=== PATIENT | male | born 1960 | race Caucasian/White ===

== ENCOUNTER 2017-03-16 14:24 | Emergency (ER) | payer OTHER ==
[2017-03-16 14:34] VITALS: BP 176/93; PULSE 120; RESP 18; TEMP 99
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
== END 2017-03-16 15:44 | disposition other institution (70) ==
LOC: EC 14:24
DX: Z02.89 Encounter for other administrative examinations (principal); F17.200 Nicotine dependence, unspecified, uncomplicated
CPT/HCPCS: 99281

== ENCOUNTER → 2017-05-02 | Outpatient (CLI) | payer MEDICARE, OTHER ==
--- NOTE | 2017-05-02 16:48 | PE ---
Nuclear medicine PET/CT HISTORY: Colorectal cancer, initial Patient received 14.4 mCi F-18 FDG intravenously in delayed scanning was performed from the skull bas e through the mid thighs. Localization and attenuation correction CT scan was also performed. No comparisons available. Neck and chest: There are multiple pulmonary nodules present, nodule in the left upper lobe measures approximately 1 cm and shows associated uptake, an additional left upper lobe lung nodule measures 9 mm adjacent to the fissure and shows some mild hypermetabolic uptake, lower lobe nodules are also pre sent, largest in the medial aspect measuring 15 mm and showing some mild uptake, additional nodule wi th possible pleural extension posterior laterally measures approximately 11 to 12 mm, left lower lobe nodule adjacent to the fissure measures 9 mm. Right lower lobe also shows multiple pulmonary nodules , largest medially measures 13 mm. 12 mm right lower lobe nodule also shows uptake as does the right upper lobe nodule measuring 10 mm. Approximately 14-15 nodules on the right and 6 or 7 on the left. T here is no pleural or pericardial effusion. Abdomen pelvis: Multiple nodules are scattered throughout the liver showing increased attenuation, th ere are likely 15-20 lesions present scattered within the liver. No retroperitoneal adenopathy. There is no ascites. There is abnormal thickening of the rectosigmoid colon with associated hypermetabolic uptake, some abnormal uptake also present in the level of the cecum is indeterminate. Osseous structures within normal limits IMPRESSION: Findings compatible with metastatic disease.
== END | disposition home or self-care (01) ==
LOC: RADPETMAIN 12:17
PROVIDERS: ATTEND Internal Medicine Hematology & Oncology
DX: C18.9 Malignant neoplasm of colon, unspecified (principal)
CPT/HCPCS: 78815; A9552

== ENCOUNTER → 2017-05-19 | Day surgery (SDC) | payer OTHER ==
[~2017-05-19] MED LIST: HYDROcodone/APAP 5-325MG 1 EACH TAB PO PRN
[2017-05-19 09:18] VITALS: TEMP 98.1
[2017-05-19 09:34] LABS: Platelet Count 650 k/uL (150-450)
[2017-05-19 09:35] LABS: INR 1.1 (<1.2); Prothrombin Time 10.6 sec (9.0-12.0)
[2017-05-19] MEDS: HYDROmorphone 0.5 MG/0.5 ML SYRINGE IVP PRN ×2 (10:04→10:22)
[2017-05-19 10:44] VITALS: PULSE 78
[2017-05-19 14:19] VITALS: RESP 20
--- NOTE | 2017-05-19 14:23 | US ---
EXAMINATION TYPE: US biopsy liver DATE OF EXAM: 05/19/2017 HISTORY: Liver masses. FINDINGS: Maximal barrier technique was utilized. The skin overlying a suitable path to the patient' s mass in the right lobe of the liver was localized with ultrasound and the overlying skin prepped an d draped. Ultrasound was utilized with sterile technique. Lidocaine was used for local anesthesia. A skin sanjay was made with a scalpel. An 18-gauge needle was advanced under direct ultrasound sammy alvarez and core specimen obtained of the mass. Specimen submitted in formalin to Pathology. Following t he procedure, hemostasis achieved and the patient is discharged in stable condition without complicat ion. IMPRESSION:STATUS POST ULTRASOUND GUIDED CORE BIOPSY OF liver MASS, PATHOLOGY IS PENDING. THIS PROCE DURE IS PERFORMED BY THE UNDERSIGNED.
[2017-05-19 14:52] VITALS: BP 154/69
== END ==
LOC: RADPROMAIN 08:30
PROVIDERS: ATTEND Internal Medicine Hematology & Oncology
DX: C78.7 Secondary malignant neoplasm of liver and intrahepatic bile duct (principal); C18.9 Malignant neoplasm of colon, unspecified
CPT/HCPCS: 85049; 85610; 88342; 88307; 88341; 96374; 36415; 47000; 76942; J1170

== ENCOUNTER 2017-10-05 12:58 | Emergency (ER) | payer OTHER ==
[2017-10-05 13:19] VITALS: BP 130/84; PULSE 110; RESP 18; TEMP 99.8
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
--- NOTE | 2017-10-08 01:59 | CDI ---
Documentation Clarification OP Dear Kori Bridges, PAC Please provide specific fingers abrasion locations. Thank you, Koki Gorman Film Drying Machine Operator If you have any questions, please contact Observatory Director at [phone] [facility]
== END 2017-10-05 14:35 | disposition home or self-care (01) ==
LOC: EC 12:58
DX: S00.81XA Abrasion of other part of head, initial encounter (principal); S50.01XA Contusion of right elbow, initial encounter; S60.212A Contusion of left wrist, initial encounter; S60.416A Abrasion of right little finger, initial encounter; S60.414A Abrasion of right ring finger, initial encounter; I10 Essential (primary) hypertension; F17.200 Nicotine dependence, unspecified, uncomplicated; Z92.21 Personal history of antineoplastic chemotherapy; Z79.899 Other long term (current) drug therapy; Z85.038 Personal history of other malignant neoplasm of large intestine; V18.4XXA Pedal cycle driver injured in noncollision transport accident in traffic accident, initial encounter; Y93.55 Activity, bike riding
CPT/HCPCS: 99283

== ENCOUNTER 2017-11-13 10:40 | Emergency (ER) | payer OTHER ==
[2017-11-13 10:49] VITALS: TEMP 98.2
[2017-11-13] MEDS ORDERED: MORPHINE SULFATE 2 MG/ML SYRINGE IM STA (11:19)
--- NOTE | 2017-11-13 11:44 | CT ---
EXAMINATION TYPE: CT brain juanito jensen DATE OF EXAM: 11/13/2017 COMPARISON: None HISTORY: Fall, heead injury CT DLP: 1567.[address] of the brain was performed. The ventricles, basal cisterns and sulci overlying the cerebral convexities demonstrate mild enlargem ent. There is no evidence for intracranial hemorrhage or sulcal effacement. There is decreased attenuatio n about the periventricular white matter and deep white matter of both cerebral hemispheres, compatib le with chronic small vessel ischemia. No mass effects are seen. If symptoms persist consider MRI. Osseous calvarium is intact. IMPRESSION: 1. Age related atrophic and chronic small vessel ischemic change without acute intracranial process seen at this time. CT Cervical Spine: Unenhanced CT of the cervical spine was performed with bone and soft tissue window settings submitted . Coronal and sagittal reconstruction is obtained. There is normal alignment and prevertebral soft tissues. No evidence for acute cervical fracture . Scattered degenerative disc disease and spondylosis. Biapical scarring. 5.2 mm pulmonary nodule lef t upper lobe with central calcification likely reflects a granuloma. IMPRESSION: 1. No evidence for acute fracture or subluxation of the cervical spine.
--- NOTE | 2017-11-13 11:46 | CT ---
EXAMINATION TYPE: CT facial bones wo con DATE OF EXAM: 11/13/2017 COMPARISON: None HISTORY: Fall, head injury CT DLP: 361.[address] of the facial bones was performed in the axial and coronal planes. Bone and soft tissu e window settings are submitted. No significant soft tissue swelling is appreciated. I do not see evidence for displaced facial bone fracture or depressed facial bone fracture. The globes are intact. Paranasal sinuses are well-aerated. Mild paranasal sinus mucosal thickening. IMPRESSION: 1. No evidence for depressed or displaced facial bone fracture.
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
[2017-11-13 11:52] VITALS: BP 167/94; PULSE 100; RESP 16
--- NOTE | 2017-11-13 11:52 | XR ---
EXAMINATION TYPE: XR ribs LT w pa chest xray DATE OF EXAM: 11/13/2017 COMPARISON: NONE HISTORY: Pain TECHNIQUE: Single view of the chest 4 views of the ribs are submitted. FINDINGS: The lungs are clear. No Evidence for pneumothorax. No evidence for focal contusion. Medi astinal structures are midline. Evaluation of the ribs fails to demonstrate evidence for displaced r ib fracture or secondary sign of rib fracture. IMPRESSION: Negative study
== END 2017-11-13 12:52 | disposition home or self-care (01) ==
LOC: EC 10:40
DX: S20.212A Contusion of left front wall of thorax, initial encounter (principal); I10 Essential (primary) hypertension; F17.200 Nicotine dependence, unspecified, uncomplicated; Z85.038 Personal history of other malignant neoplasm of large intestine; Z79.82 Long term (current) use of aspirin; Z79.899 Other long term (current) drug therapy; W18.2XXA Fall in (into) shower or empty bathtub, initial encounter; Y93.E9 Activity, other interior property and clothing maintenance; Y92.009 Unspecified place in unspecified non-institutional (private) residence as the place of occurrence of the external cause
CPT/HCPCS: 71101; 72125; 70486; 70450; 99284; 96372; J2270

== ENCOUNTER 2017-11-20 13:32 | Inpatient (IN) | payer OTHER ==
[2017-11-20] MEDS ORDERED: ONDANSETRON 4 MG/2 ML VIAL IVP STA (14:13)
[2017-11-20] MEDS ORDERED: SODIUM CHLORIDE 0.9% 1,000 ML IV STA (14:13)
--- NOTE | 2017-11-20 14:16 | ED ---
General Adult HPI - General Chief complaint: Weakness Stated complaint: weakness, chemo pt Time Seen by Provider: 11/20/17 13:53 Source: patient, RN notes reviewed Mode of arrival: wheelchair Limitations: physical limitation - History of Present Illness Initial comments: Patient is a pleasant 56-year-old male presenting to the emergency Department with complaints of generalized weakness. Onset of symptoms was this morning. Patient did have chemotherapy around 1 week ago. Patient has known colon cancer. Patient does admit to not eating and drinking well. Patient states he feels fatigued and weak all over. Patient did have a fall a couple of days ago and struck his chest and head. Patient denies any significant injury. No loss of consciousness. Patient does not take blood thinners. - Related Data Home Medications Medication Instructions Recorded Confirmed LORazepam [Ativan] 0.5 mg PO BID 05/14/17 11/20/17 HYDROcodone/APAP 5-325MG [[place] 1 tab PO Q6H PRN 10/05/17 11/20/17 5-325] Aspirin EC [Ecotrin Low Dose] 81 mg PO DAILY 11/13/17 11/20/17 Megestrol [Megace] 200 mg PO AC-TID 11/13/17 11/20/17 amLODIPine [Norvasc] 10 mg PO DAILY 11/13/17 11/20/17 Allergies Allergy/AdvReac Type Severity Reaction Status Date / Time No Known Allergies Allergy Verified 11/20/17 14:20 Review of Systems ROS Statement: Those systems with pertinent positive or pertinent negative responses have been documented in the HPI. ROS Other: All systems not noted in ROS Statement are negative. Constitutional: Denies: fever Eyes: Denies: eye pain ENT: Denies: ear pain Respiratory: Denies: cough, dyspnea Cardiovascular: Denies: chest pain Endocrine: Reports: fatigue Gastrointestinal: Reports: nausea. Denies: abdominal pain Genitourinary: Denies: dysuria Musculoskeletal: Denies: back pain Skin: Denies: rash Neurological: Denies: weakness Past Medical History Past Medical History: Cancer, COPD, Hyperlipidemia, Hypertension Additional Past Medical History / Comment(s): Arthritis. colon cancer History of Any Multi-Drug Resistant Organisms: None Reported Past Surgical History: Tonsillectomy Additional Past Surgical History / Comment(s): Colonoscopy 2018 Past Anesthesia/Blood Transfusion Reactions: No Reported Reaction Past Psychological History: No Psychological Hx Reported Smoking Status: Current every day smoker Past Alcohol Use History: Occasional Past Drug Use History: None Reported - Past Family History Sister(s) Family Medical History: Cancer Additional Family Medical History / Comment(s): Sister Breast Ca General Exam Limitations: physical limitation General appearance: alert, in no apparent distress Head exam: Present: other (Ecchymosis left zygomatic region without tenderness) Eye exam: Present: normal appearance, PERRL, EOMI. Absent: nystagmus ENT exam: Present: normal oropharynx Neck exam: Present: normal inspection. Absent: tenderness Respiratory exam: Present: normal lung sounds bilaterally Cardiovascular Exam: Present: tachycardia GI/Abdominal exam: Present: soft. Absent: tenderness Extremities exam: Present: normal inspection, full ROM. Absent: tenderness Neurological exam: Present: alert, CN II-XII intact. Absent: motor sensory deficit Expanded Motor strength exam: RUE: 5, LUE: 5, RLE: 5, LLE: 5 Eye Response: (4) open spontaneously Motor Response: (6) obeys commands Verbal Response: (5) oriented Psychiatric exam: Present: normal affect, normal mood Skin exam: Present: other (Patient also has ecchymosis left chest without bony tenderness.) Course Vital Signs 11/20/17 11/20/17 11/20/17 13:41 15:10 16:00 Temperature 99.2 F Pulse Rate 130 H 103 H 112 H Respiratory 20 16 18 Rate Blood Pressure 139/95 149/88 148/107 O2 Sat by Pulse 98 98 100 Oximetry - Reevaluation(s) Reevaluation #1: 11/20/17 16:33 Patient reevaluated and updated on results. Patient feels somewhat better however overall still feels fatigued and weak. Dr. Sage has been paged for admission. EKG Findings - EKG Comments: EKG Findings:: Sinus tachycardia 111. RI 138. QRS 84. QT 388. QTC 527. Normal axis. Normal QRS. No acute ST change. Medical Decision Making - Lab Data Result diagrams: 11/20/17 14:05 11/20/17 14:05 Lab Results 11/20/17 11/20/17 11/20/17 Range/Units 14:05 14:05 14:05 WBC 6.1 (3.8-10.6) k/uL RBC 4.05 L (4.30-5.90) m/uL Hgb 13.7 (13.0-17.5) gm/dL Hct 40.1 (39.0-53.0) % MCV 99.2 (80.0-100.0) fL MCH 33.8 (25.0-35.0) pg MCHC 34.1 (31.0-37.0) g/dL RDW 17.1 H (11.5-15.5) % Plt Count 119 L D (150-450) k/uL Neutrophils % (Manual) 64 % Band Neutrophils % 3 % Lymphocytes % (Manual) 11 % Monocytes % (Manual) 22 % Neutrophils # (Manual) 4.00 (1.3-7.7) k/uL Lymphocytes # (Manual) 0.67 L (1.0-4.8) k/uL Monocytes # (Manual) 1.34 H (0-1.0) k/uL Nucleated RBCs 0 (0-0) /100 WBC Manual Slide Review Performed Anisocytosis Slight Macrocytosis Slight PT 13.7 H (9.0-12.0) sec INR 1.5 H (<1.2) APTT 30.0 (22.0-30.0) sec Sodium 129 L (137-145) mmol/L Potassium 2.9 L* (3.5-5.1) mmol/L Chloride 94 L (98-107) mmol/L Carbon Dioxide 24 (22-30) mmol/L Anion Gap 11 mmol/L BUN 11 (9-20) mg/dL Creatinine 0.53 L (0.66-1.25) mg/dL Est GFR (CKD-EPI)AfAm >90 (>60 ml/min/1.73 sqM) Est GFR (CKD-EPI)NonAf >90 (>60 ml/min/1.73 sqM) Glucose 106 H (74-99) mg/dL Calcium 8.1 L (8.4-10.2) mg/dL Magnesium 1.2 L (1.6-2.3) mg/dL Total Bilirubin 1.3 (0.2-1.3) mg/dL AST 127 H (17-59) U/L ALT 76 H (21-72) U/L Alkaline Phosphatase 457 H (38-126) U/L Total Protein 6.4 (6.3-8.2) g/dL Albumin 3.4 L (3.5-5.0) g/dL Urine Color Urine Appearance (Clear) Urine pH (5.0-8.0) Ur Specific [place] (1.001-1.035) Urine Protein (Negative) Urine Glucose (UA) (Negative) Urine Ketones (Negative) Urine Blood (Negative) Urine Nitrite (Negative) Urine Bilirubin (Negative) Urine Urobilinogen (<2.0) mg/dL Ur Leukocyte Esterase (Negative) 11/20/17 Range/Units Unknown WBC (3.8-10.6) k/uL RBC (4.30-5.90) m/uL Hgb (13.0-17.5) gm/dL Hct (39.0-53.0) % MCV (80.0-100.0) fL MCH (25.0-35.0) pg MCHC (31.0-37.0) g/dL RDW (11.5-15.5) % Plt Count (150-450) k/uL Neutrophils % (Manual) % Band Neutrophils % % Lymphocytes % (Manual) % Monocytes % (Manual) % Neutrophils # (Manual) (1.3-7.7) k/uL Lymphocytes # (Manual) (1.0-4.8) k/uL Monocytes # (Manual) (0-1.0) k/uL Nucleated RBCs (0-0) /100 WBC Manual Slide Review Anisocytosis Macrocytosis PT (9.0-12.0) sec INR (<1.2) APTT (22.0-30.0) sec Sodium (137-145) mmol/L Potassium (3.5-5.1) mmol/L Chloride (98-107) mmol/L Carbon Dioxide (22-30) mmol/L Anion Gap mmol/L BUN (9-20) mg/dL Creatinine (0.66-1.25) mg/dL Est GFR (CKD-EPI)AfAm (>60 ml/min/1.73 sqM) Est GFR (CKD-EPI)NonAf (>60 ml/min/1.73 sqM) Glucose (74-99) mg/dL Calcium (8.4-10.2) mg/dL Magnesium (1.6-2.3) mg/dL Total Bilirubin (0.2-1.3) mg/dL AST (17-59) U/L ALT (21-72) U/L Alkaline Phosphatase (38-126) U/L Total Protein (6.3-8.2) g/dL Albumin (3.5-5.0) g/dL Urine Color Yellow Urine Appearance Clear (Clear) Urine pH 7.0 (5.0-8.0) Ur Specific [place] 1.011 (1.001-1.035) Urine Protein Trace H (Negative) Urine Glucose (UA) Negative (Negative) Urine Ketones 1+ H (Negative) Urine Blood Negative (Negative) Urine Nitrite Negative (Negative) Urine Bilirubin Negative (Negative) Urine Urobilinogen 12.0 (<2.0) mg/dL Ur Leukocyte Esterase Negative (Negative) - Radiology Data Radiology results: report reviewed (Chest x-ray shows no acute process. Computed tomography scan of the brain shows no acute process. I am unable to view films.) Disposition Clinical Impression: Dehydration, Hyponatremia, Hypokalemia, Hypomagnesemia Disposition: ADMITTED IP TO THIS HOSP Is patient prescribed a controlled substance at d/c from ED?: No Referrals: Gee Cancino MD [Primary Care Provider] - 1-2 days Decision Time: 16:33
--- NOTE | 2017-11-20 14:36 | CT ---
EXAMINATION TYPE: CT brain wo con DATE OF EXAM: 11/20/2017 HISTORY: Weakness and increased dizziness today. CT DLP: 1038.8 mGycm. Automated Exposure Control for Dose Reduction was Utilized. TECHNIQUE: CT scan of the head is performed without contrast. COMPARISON: CT brain from one week earlier. FINDINGS: There is no acute intracranial hemorrhage or midline shift identified. There is diffuse v entricular and sulcal prominence consistent with diffuse age-related cerebral atrophy. Perry-white mat ter differentiation is preserved. The globes are intact and the visualized sinuses are clear. No s uspicious opacification of mastoid air cells is seen. IMPRESSION: No acute intracranial hemorrhage or midline shift. There is mild diffuse age-related ce rebral atrophy redemonstrated. No significant change from prior.
--- NOTE | 2017-11-20 14:48 | XR ---
EXAMINATION TYPE: XR chest 2V DATE OF EXAM: 11/20/2017 COMPARISON: Prior chest 11/13/2017 HISTORY: Trauma and pain 2 days prior, dyspnea TECHNIQUE: Frontal and lateral views of the chest are obtained. FINDINGS: There is no focal air space opacity, pleural effusion, or pneumothorax seen. The cardiac silhouette size is within normal limits. The osseous structures are intact. Port-A-Cath is unchange d. There are overlying cardiac leads. IMPRESSION: Stable exam. No acute cardiopulmonary disease.
[2017-11-20 15:05] LABS: Anisocytosis Slight; HCT 40.1 % (39.0-53.0); HGB 13.7 gm/dL (13.0-17.5); MCH 33.8 pg (25.0-35.0); MCHC 34.1 g/dL (31.0-37.0); MCV 99.2 fL (80.0-100.0); Macrocytosis Slight; Mean Platelet Volume 7.4; Platelet Count 119 k/uL (150-450); RBC 4.05 m/uL (4.30-5.90); RDW 17.1 % (11.5-15.5); WBC 6.1 k/uL (3.8-10.6)
[2017-11-20 15:06] LABS: ALT 76 U/L (21-72); AST 127 U/L (17-59); Albumin 3.4 g/dL (3.5-5.0); Alkaline Phosphatase 457 U/L (38-126); Anion Gap 11 mmol/L; Blood Urea Nitrogen 11 mg/dL (9-20); Calcium 8.1 mg/dL (8.4-10.2); Carbon Dioxide 24 mmol/L (22-30); Chloride 94 mmol/L (98-107); Glucose 106 mg/dL (74-99); Magnesium 1.2 mg/dL (1.6-2.3); Sodium 129 mmol/L (137-145); Total Bilirubin 1.3 mg/dL (0.2-1.3); Total Protein 6.4 g/dL (6.3-8.2)
[2017-11-20 15:10] LABS: Potassium 2.9 mmol/L (3.5-5.1)
[2017-11-20] MEDS ORDERED: POTASSIUM CHLORIDE ER 20 MEQ TAB.ER PO STA (15:10)
[2017-11-20] MEDS ORDERED: POTASSIUM CHLORIDE 2 MEQ/ML 20 ML VIAL IV STA (15:10)
[2017-11-20] MEDS ORDERED: POTASSIUM CHLORIDE 10 MEQ in WATER FOR INJECTION 1 100ML.BAG IVPB STA (15:12)
[2017-11-20 15:14] LABS: INR 1.5 (<1.2); Prothrombin Time 13.7 sec (9.0-12.0)
[2017-11-20] MEDS ORDERED: MAGNESIUM OXIDE 400 MG TAB PO STA (15:38)
[2017-11-20 16:01] LABS: Band Neutrophils % 3 %; Lymphocytes # (M) 0.67 k/uL (1.0-4.8); Monocytes # (M) 1.34 k/uL (0-1.0); Neutrophils % (M) 64 %; Nucleated Red Blood Cells 0 /100 WBC (0-0); Total Cells Counted 100
[2017-11-20 16:25] LABS: Appearance,Urine Clear (Clear); Bilirubin,Urine Negative (Negative); Blood,Urine Negative (Negative); Color,Urine Yellow; Glucose,Urine (UA) Negative (Negative); Ketones,Urine 1+ (Negative); Leukocyte Esterase,Urine Negative (Negative); Nitrite,Urine Negative (Negative); Protein,Urine Trace (Negative); Specific Gravity,Urine 1.011 (1.001-1.035)
[2017-11-20] MEDS ORDERED: ONDANSETRON 4 MG/2 ML VIAL IVP PRN (16:34)
[2017-11-20] MEDS ORDERED: NALOXONE 0.4 MG/ML 1 ML VIAL IV PRN (16:34)
[2017-11-20] MEDS ORDERED: 0.9% NACL WITH KCL 20 MEQ/L 1,000 ML IV SCH (16:45)
[2017-11-20] MEDS: PANTOPRAZOLE 40 MG/10 ML VIAL IV SCH (18:21)
[2017-11-20] MEDS: MAGNESIUM SULFATE-D5W PMX 1 GM in DEXTROSE/WATER 1 100ML.BAG IVPB SCH ×2 (18:21→20:30)
--- NOTE | 2017-11-20 18:34 | P.CONS ---
History of Present Illness - Reason for Consult Consult date: 11/20/17 - History of Present Illness the patient is a 56-year-old white female, who had presented to [facility] in with bright red blood per rectum X few weeks, associated with mild lower abdominal pain , described as "gas". He was seen by surgery > had Colonoscopy with a mass at 7 cm from anal verge, biopsy was C/W Adenocarcinoma. CT Scan of abdomen/Pelvis revealed multiple hypodense lesions in liver C/W metastatic disease. CT Scan of Lung revealed multiple pulmonary nodule C/W mets to lung. he had a PET Scan as an outpatient on 05/02/17 showing Diffuse Lung+Liver mets. Bx of liver in 05/21 revealed Metastatic Adenocarcinoma C/W Colorectal primary. he was started on treatment with FOLFOX and Avastin. He is status post 11 cycles with the last one administered on 11/10/17 with pump removed on 11/12/17. he has been having slowly progressive toxicity, with decreased appetite and oral intake requiringhydration and electrolyte supplementation, previously in the office. The patient came into the emergency room, as his oral intake had been very poor since his last chemotherapy. He had been feeling weak, and somewhat dizzy on exertion. In the ER he was found to be dehydrated on exam, with multiple electrolyte abnormalities. He was therefore admitted for further management. Review of Systems Constitutional: Reports fatigue, Reports poor appetite, Reports weakness, Reports weight loss Eyes: denies blurred vision, denies pain Ears, nose, mouth and throat: Denies headache, Denies sore throat Cardiovascular: Reports decreased exercise tolerance Respiratory: Denies cough Gastrointestinal: Denies abdominal pain, Denies diarrhea, Denies nausea, Denies vomiting Genitourinary: Reports as per HPI Musculoskeletal: Reports muscle weakness Integumentary: Denies pruritus, Denies rash Neurological: Reports weakness Psychiatric: Denies anxiety, Denies depression Endocrine: Reports fatigue, Reports weight change Hematologic/Lymphatic: Reports as per HPI Past Medical History Past Medical History: Cancer, COPD, Hyperlipidemia, Hypertension Additional Past Medical History / Comment(s): Arthritis. colon cancer History of Any Multi-Drug Resistant Organisms: None Reported Past Surgical History: Tonsillectomy Additional Past Surgical History / Comment(s): Colonoscopy 2018 Past Anesthesia/Blood Transfusion Reactions: No Reported Reaction Past Psychological History: No Psychological Hx Reported Smoking Status: Current every day smoker Past Alcohol Use History: Occasional Past Drug Use History: None Reported - Past Family History Sister(s) Family Medical History: Cancer Additional Family Medical History / Comment(s): Sister Breast Ca Medications and Allergies Home Medications Medication Instructions Recorded Confirmed Type LORazepam [Ativan] 0.5 mg PO BID 05/14/17 11/20/17 History HYDROcodone/APAP 5-325MG [[place] 1 tab PO Q6H PRN 10/05/17 11/20/17 History 5-325] Aspirin EC [Ecotrin Low Dose] 81 mg PO DAILY 11/13/17 11/20/17 History Megestrol [Megace] 200 mg PO AC-TID 11/13/17 11/20/17 History amLODIPine [Norvasc] 10 mg PO DAILY 11/13/17 11/20/17 History Allergies Allergy/AdvReac Type Severity Reaction Status Date / Time No Known Allergies Allergy Verified 11/20/17 14:20 Physical Exam Vitals: Vital Signs Temp Pulse Resp BP Pulse Ox 11/20/17 18:13 99.2 F 100 16 148/107 98 11/20/17 16:00 112 H 18 148/107 100 11/20/17 15:10 103 H 16 149/88 98 11/20/17 13:41 99.2 F 130 H 20 139/95 98 Intake and Output 11/20/17 11/20/17 11/20/17 06:59 14:59 22:59 Other: Weight 58.967 kg - Constitutional General appearance: no acute distress - EENT Poor dentition. Oral mucosa dry Eyes: EOMI, PERRLA ENT: hearing grossly normal - Neck Neck: no lymphadenopathy Thyroid: bilateral: normal size - Respiratory Respiratory: bilateral: CTA - Cardiovascular Rhythm: regular Heart sounds: normal: S1, S2 - Gastrointestinal General gastrointestinal: normal bowel sounds, soft - Integumentary Integumentary: normal - Neurologic Neurologic: CNII-XII intact - Musculoskeletal Musculoskeletal: generalized weakness, strength equal bilaterally - Psychiatric Psychiatric: A&O x's 3, appropriate affect Results CBC & Chem 7: 11/20/17 14:05 11/20/17 14:05 Labs: Abnormal Lab Results - Last 24 Hours (Table) 11/20/17 11/20/17 11/20/17 Range/Units 14:05 14:05 14:05 RBC 4.05 L (4.30-5.90) m/uL RDW 17.1 H (11.5-15.5) % Plt Count 119 L D (150-450) k/uL Lymphocytes # (Manual) 0.67 L (1.0-4.8) k/uL Monocytes # (Manual) 1.34 H (0-1.0) k/uL PT 13.7 H (9.0-12.0) sec INR 1.5 H (<1.2) Sodium 129 L (137-145) mmol/L Potassium 2.9 L* (3.5-5.1) mmol/L Chloride 94 L (98-107) mmol/L Creatinine 0.53 L (0.66-1.25) mg/dL Glucose 106 H (74-99) mg/dL Calcium 8.1 L (8.4-10.2) mg/dL Magnesium 1.2 L (1.6-2.3) mg/dL AST 127 H (17-59) U/L ALT 76 H (21-72) U/L Alkaline Phosphatase 457 H (38-126) U/L Albumin 3.4 L (3.5-5.0) g/dL Urine Protein (Negative) Urine Ketones (Negative) 11/20/17 Range/Units Unknown RBC (4.30-5.90) m/uL RDW (11.5-15.5) % Plt Count (150-450) k/uL Lymphocytes # (Manual) (1.0-4.8) k/uL Monocytes # (Manual) (0-1.0) k/uL PT (9.0-12.0) sec INR (<1.2) Sodium (137-145) mmol/L Potassium (3.5-5.1) mmol/L Chloride (98-107) mmol/L Creatinine (0.66-1.25) mg/dL Glucose (74-99) mg/dL Calcium (8.4-10.2) mg/dL Magnesium (1.6-2.3) mg/dL AST (17-59) U/L ALT (21-72) U/L Alkaline Phosphatase (38-126) U/L Albumin (3.5-5.0) g/dL Urine Protein Trace H (Negative) Urine Ketones 1+ H (Negative) Chest x-ray: report reviewed CT Scan - head: report reviewed Assessment and Plan (1) Dehydration Narrative/Plan: his appears to be mainly due to decreased oral intake,related to his chemotherapy. The patient denies any nausea, vomiting, or significant diarrhea. He did require hydration in the office after cycle 10. - Case discussed with the emergency room physician. The patient will have IV hydration. His appetite does tend to recover in the second week. Current Visit: Yes Status: Acute Code(s): E86.0 - DEHYDRATION SNOMED Code( s): 47931023 (2) Hypokalemia Narrative/Plan: due to decreased oral intake, as well as chemotherapy effect (oxaliplatin). Patient will be supplemented. He is not on regular oral supplementation and will likely benefit from the same on discharge Current Visit: Yes Status: Acute Code(s): E87.6 - HYPOKALEMIA SNOMED Code( s): 31868711 (3) Hypomagnesemia Narrative/Plan: as above Current Visit: Yes Status: Acute Code(s): E83.42 - HYPOMAGNESEMIA SNOMED Code(s): 906266838 (4) Metastatic colon cancer to liver Narrative/Plan: the patient has metastatic colon cancer, with liver and lung involvement. CT scans in 09/18 had shown a good response. He has been having somewhat cumulative toxicity. He is supposed to complete his current regimen, with one more cycle. The patient has follow-up scheduled with Dr. Cancino, prior to that cycle. It will be decided at that time, ifhe needs dose reduction or if the last cycle can be omitted. He is to have restaging CT scans after cycle 12. Labs during this admission have shown some elevation of liver enzymes compared to his baseline (or example alkaline phosphatase in the 450 range versus 250s) this could be transient due to chemotherapy effect. As noted, he has repeat CT scans coming up for restaging. Follow with hydration Current Visit: Yes Status: Acute Code(s): C18.9 - MALIGNANT NEOPLASM OF COLON, UNSPECIFIED; C78.7 - SECONDARY MALIG NEOPLASM OF LIVER AND INTRAHEPATIC BILE DUCT SNOMED Code(s): 81262804 Plan: refer to the admitting service for management of other medical problems. Case discussed in detail with the emergency room physician
[2017-11-20] MEDS: 0.9% NACL WITH KCL 40 MEQ/L 1,000 ML IV SCH (19:12)
[2017-11-20] MEDS ORDERED: POTASSIUM CHLORIDE ER 20 MEQ TAB.ER PO SCH (21:00)
[2017-11-20] MEDS: amLODIPine 10 MG TAB PO SCH (21:56)
[2017-11-21] MEDS: 0.9% NACL WITH KCL 40 MEQ/L 1,000 ML IV SCH ×3 (06:31→22:24)
[2017-11-21 08:36] LABS: Anisocytosis Slight; HCT 38.6 % (39.0-53.0); MCH 34.2 pg (25.0-35.0); MCHC 33.8 g/dL (31.0-37.0); MCV 101.3 fL (80.0-100.0); Macrocytosis Slight; Mean Platelet Volume 7.8; Platelet Count 82 k/uL (150-450); RBC 3.81 m/uL (4.30-5.90); RDW 17.1 % (11.5-15.5); WBC 5.1 k/uL (3.8-10.6)
[2017-11-21 08:40] LABS: ALT 93 U/L (21-72); AST 232 U/L (17-59); Alkaline Phosphatase 449 U/L (38-126); Anion Gap 10 mmol/L; Blood Urea Nitrogen 5 mg/dL (9-20); Carbon Dioxide 19 mmol/L (22-30); Chloride 102 mmol/L (98-107); Glucose 75 mg/dL (74-99); Magnesium 1.8 mg/dL (1.6-2.3); Phosphorus 1.6 mg/dL (2.5-4.5); Potassium 4.3 mmol/L (3.5-5.1); Sodium 131 mmol/L (137-145); Total Bilirubin 1.6 mg/dL (0.2-1.3); Total Protein 6.1 g/dL (6.3-8.2)
[2017-11-21 09:16] LABS: Band Neutrophils % 1 %; Eosinophils # (M) 0.36 k/uL (0-0.7); Lymphocytes # (M) 0.92 k/uL (1.0-4.8); Monocytes # (M) 0.41 k/uL (0-1.0); Neutrophils % (M) 66 %; Nucleated Red Blood Cells 0 /100 WBC (0-0); Polychromasia Present; Total Cells Counted 100
[2017-11-21] MEDS: MEGESTROL 400 MG/10 ML CUP PO SCH ×3 (09:16→17:54)
[2017-11-21] MEDS: amLODIPine 10 MG TAB PO SCH (09:16)
[2017-11-21] MEDS: HEPARIN SODIUM,PORCINE 5,000 UNIT/ML 1 ML VIAL SQ SCH ×2 (09:17→22:24)
[2017-11-21] MEDS: ASPIRIN 81 MG PO SCH (09:17)
[2017-11-21] MEDS: FAMOTIDINE 20 MG TAB PO SCH ×2 (09:17→22:24)
[2017-11-21] MEDS: PANTOPRAZOLE 40 MG/10 ML VIAL IV SCH (09:18)
[2017-11-21] MEDS: LORazepam 0.5 MG TAB PO SCH ×2 (09:26→22:24)
[2017-11-21] MEDS: MAGNESIUM OXIDE 400 MG TAB PO SCH (10:45)
--- NOTE | 2017-11-21 13:46 | P.HPIM ---
History of Present Illness H&P Date: 11/21/17 Chief Complaint: Weakness lethargy and poor oral intake since last chemo 56-year-old male presenting to the emergency Department with complaints of generalized weakness. Onset of symptoms was this morning. Patient did have chemotherapy around 1 week ago. Patient has known colon cancer. Patient does admit to not eating and drinking well. Patient states he feels fatigued and weak all over. Patient did have a fall a couple of days ago and struck his chest and head. Patient denies any significant injury. No loss of consciousness. Patient presented to [facility] in 04/19 with bright red blood per rectum X few weeks , associated with mild lower abdominal pain , described as "gas". He was seen by surgery > had Colonoscopy with a mass at 7 cm from anal verge, biopsy was C/ W Adenocarcinoma. CT Scan of abdomen/Pelvis revealed multiple hypodense lesions in liver C/W metastatic disease. CT Scan of Lung revealed multiple pulmonary nodule C/W mets to lung. he had a PET Scan as an outpatient on 05/02/17 showing Diffuse Lung+Liver mets. Bx of liver in 05/21 revealed Metastatic Adenocarcinoma C/W Colorectal primary. he was started on treatment with FOLFOX and Avastin. He is status post 11 cycles with the last one administered on 11/10/17 with pump removed on 11/12/17. he has been having slowly progressive toxicity, with decreased appetite and oral intake requiringhydration and electrolyte supplementation, previously in the office. Review of Systems Review of Systems Constitutional: Reports fatigue, Reports poor appetite, Reports weakness, Reports weight loss Eyes: denies blurred vision, denies pain Ears, nose, mouth and throat: Denies headache, Denies sore throat Cardiovascular: Reports decreased exercise tolerance Respiratory: Denies cough Gastrointestinal: Denies abdominal pain, Denies diarrhea, Denies nausea, Denies vomiting Genitourinary: Reports as per HPI Musculoskeletal: Reports muscle weakness Integumentary: Denies pruritus, Denies rash Neurological: Reports weakness Psychiatric: Denies anxiety, Denies depression Endocrine: Reports fatigue, Reports weight change Hematologic/Lymphatic: Reports as per HPI Past Medical History Past Medical History: Cancer, COPD, Hyperlipidemia, Hypertension Additional Past Medical History / Comment(s): Arthritis. colon cancer History of Any Multi-Drug Resistant Organisms: None Reported Past Surgical History: Tonsillectomy Additional Past Surgical History / Comment(s): Colonoscopy 2018 Past Anesthesia/Blood Transfusion Reactions: No Reported Reaction Past Psychological History: No Psychological Hx Reported Smoking Status: Current some day smoker Past Alcohol Use History: Occasional Past Drug Use History: None Reported - Past Family History Sister(s) Family Medical History: Cancer Additional Family Medical History / Comment(s): Sister Breast Ca Medications and Allergies Home Medications Medication Instructions Recorded Confirmed Type LORazepam [Ativan] 0.5 mg PO BID 05/14/17 11/20/17 History HYDROcodone/APAP 5-325MG [[place] 1 tab PO Q6H PRN 10/05/17 11/20/17 History 5-325] Aspirin EC [Ecotrin Low Dose] 81 mg PO DAILY 11/13/17 11/20/17 History Megestrol [Megace] 200 mg PO AC-TID 11/13/17 11/20/17 History amLODIPine [Norvasc] 10 mg PO DAILY 11/13/17 11/20/17 History Allergies Allergy/AdvReac Type Severity Reaction Status Date / Time No Known Allergies Allergy Verified 11/20/17 14:20 Physical Exam Vitals: Vital Signs Temp Pulse Pulse Resp BP BP Pulse Ox 11/21/17 07:00 98.6 F 93 16 137/85 96 11/20/17 23:00 98.5 F 101 H 16 149/83 97 11/20/17 19:45 98.4 F 106 H 16 146/87 97 11/20/17 18:50 96 18 150/87 97 11/20/17 18:13 99.2 F 100 16 148/107 98 11/20/17 16:00 112 H 18 148/107 100 11/20/17 15:10 103 H 16 149/88 98 11/20/17 13:41 99.2 F 130 H 20 139/95 98 Intake and Output 11/20/17 11/21/17 11/21/17 22:59 06:59 14:59 Intake Total 800 Balance 800 Intake: Intake, IV Titration 800 Amount 0.9% NaCl with KCl 40 Meq 800 /l 1,000 ml @ 100 mls/hr IV .Q10H BECKY Rx#: [id number] Other: # Voids 1 - Constitutional General appearance: no acute distress - EENT Poor dentition. Oral mucosa dry Eyes: EOMI, PERRLA ENT: hearing grossly normal - Neck Neck: no lymphadenopathy Thyroid: bilateral: normal size - Respiratory Respiratory: bilateral: CTA - Cardiovascular Rhythm: regular Heart sounds: normal: S1, S2 - Gastrointestinal General gastrointestinal: normal bowel sounds, soft - Integumentary Integumentary: normal - Neurologic Neurologic: CNII-XII intact - Musculoskeletal Musculoskeletal: generalized weakness, strength equal bilaterally - Psychiatric Psychiatric: A&O x's 3, appropriate affect Results CBC & Chem 7: 11/21/17 07:57 11/21/17 07:57 Labs: Abnormal Lab Results - Last 24 Hours (Table) 11/20/17 11/20/17 11/20/17 Range/Units 14:05 14:05 14:05 RBC 4.05 L (4.30-5.90) m/uL Hct (39.0-53.0) % MCV (80.0-100.0) fL RDW 17.1 H (11.5-15.5) % Plt Count 119 L D (150-450) k/uL Lymphocytes # (Manual) 0.67 L (1.0-4.8) k/uL Monocytes # (Manual) 1.34 H (0-1.0) k/uL PT 13.7 H (9.0-12.0) sec INR 1.5 H (<1.2) Sodium 129 L (137-145) mmol/L Potassium 2.9 L* (3.5-5.1) mmol/L Chloride 94 L (98-107) mmol/L Carbon Dioxide (22-30) mmol/L BUN (9-20) mg/dL Creatinine 0.53 L (0.66-1.25) mg/dL Glucose 106 H (74-99) mg/dL Calcium 8.1 L (8.4-10.2) mg/dL Phosphorus (2.5-4.5) mg/dL Magnesium 1.2 L (1.6-2.3) mg/dL Total Bilirubin (0.2-1.3) mg/dL AST 127 H (17-59) U/L ALT 76 H (21-72) U/L Alkaline Phosphatase 457 H (38-126) U/L Total Protein (6.3-8.2) g/dL Albumin 3.4 L (3.5-5.0) g/dL Urine Protein (Negative) Urine Ketones (Negative) 11/20/17 11/21/17 11/21/17 Range/Units Unknown 07:57 07:57 RBC 3.81 L (4.30-5.90) m/uL Hct 38.6 L (39.0-53.0) % MCV 101.3 H (80.0-100.0) fL RDW 17.1 H (11.5-15.5) % Plt Count 82 L (150-450) k/uL Lymphocytes # (Manual) 0.92 L (1.0-4.8) k/uL Monocytes # (Manual) (0-1.0) k/uL PT (9.0-12.0) sec INR (<1.2) Sodium 131 L (137-145) mmol/L Potassium (3.5-5.1) mmol/L Chloride (98-107) mmol/L Carbon Dioxide 19 L (22-30) mmol/L BUN 5 L (9-20) mg/dL Creatinine 0.42 L (0.66-1.25) mg/dL Glucose (74-99) mg/dL Calcium 8.0 L (8.4-10.2) mg/dL Phosphorus 1.6 L (2.5-4.5) mg/dL Magnesium (1.6-2.3) mg/dL Total Bilirubin 1.6 H (0.2-1.3) mg/dL AST 232 H (17-59) U/L ALT 93 H (21-72) U/L Alkaline Phosphatase 449 H (38-126) U/L Total Protein 6.1 L (6.3-8.2) g/dL Albumin 3.0 L (3.5-5.0) g/dL Urine Protein Trace H (Negative) Urine Ketones 1+ H (Negative) Thrombosis Risk Factor Assmnt - Choose All That Apply Any of the Below Risk Factors Present?: Yes Each Factor Represents 1 point: Age 41-60 years, Medical pt on bed rest Thrombosis Risk Factor Assessment Total Risk Factor Score: 2 Thrombosis Risk Factor Assessment Level: Low Risk Assessment and Plan Assessment: 1. Electrolyte imbalance; hyponatremia/hypokalemia/hypomagnesemia - We will make electrolyte supplementation and continue to monitor electrolytes closely - Patient might need oral maintenance electrolyte supplement if levels continue to drop 2. Dehydration; we will continue with IV fluid hydration - We will monitor strict NABILA's, daily weights, renal function and electrolytes 3. Transaminitis; metastatic liver involvement with colon cancer 4. Hypertension; patient remains on amlodipine 10 mg by mouth daily - We will monitor blood pressure closely and make adjustments if blood pressure fluctuates 5. Metastatic colon cancer; with liver and lung involvement - Patient is currently on chemotherapy with 1 cycle remaining; plan is to decrease dose or pulmonary last cycle - Per oncology patient will need restaging computed tomography scan after cycle 12 of chemo 6. Anorexia/protein calorie malnutrition - Patient is started on megestrol 200 mg by mouth 3 times a day - Patient is encouraged to have frequent smaller meals - Dietary supplement is recommended 7. DVT/GI prophylaxis; heparin/Pepcid CODE STATUS; full code Time with Patient: Greater than 30
[2017-11-22] MEDS: MEGESTROL 400 MG/10 ML CUP PO SCH ×3 (08:35→17:20)
[2017-11-22] MEDS: FAMOTIDINE 20 MG TAB PO SCH ×2 (08:36→21:20)
[2017-11-22] MEDS: MAGNESIUM OXIDE 400 MG TAB PO SCH (08:36)
[2017-11-22] MEDS: PANTOPRAZOLE 40 MG/10 ML VIAL IV SCH (08:36)
[2017-11-22] MEDS: ASPIRIN 81 MG PO SCH (08:36)
[2017-11-22] MEDS: amLODIPine 10 MG TAB PO SCH (08:36)
[2017-11-22] MEDS: HEPARIN SODIUM,PORCINE 5,000 UNIT/ML 1 ML VIAL SQ SCH ×2 (08:36→21:20)
[2017-11-22] MEDS: LORazepam 0.5 MG TAB PO SCH ×2 (08:46→21:20)
[2017-11-22 09:33] LABS: Anion Gap 9 mmol/L; Blood Urea Nitrogen 3 mg/dL (9-20); Calcium 8.6 mg/dL (8.4-10.2); Carbon Dioxide 18 mmol/L (22-30); Chloride 103 mmol/L (98-107); Glucose 113 mg/dL (74-99); Potassium 4.2 mmol/L (3.5-5.1); Sodium 130 mmol/L (137-145)
--- NOTE | 2017-11-22 12:27 | P.PN ---
Subjective 56-year-old admitted secondary to hyponatremia intravascular volume depletion contributing to generalized weakness. Patient has history of metastatic colon cancer receiving chemotherapy. His generalized weakness is mostly related to cancer and chemotherapy itself rather than intravascular depletion. Patient's sodium did improve to 130 continue with IV fluids. Constitutional: Mechelle is weakness and fatigue Cardio vascular: denied any chest pain, palpitations Gastrointestinal denied any nausea vomiting Pulmonary: Denied any shortness of breath cough Neurologic denied any new focal deficits Objective - Vital Signs Vital signs: Vital Signs Temp 98.0 F 11/22/17 07:00 Pulse 89 11/22/17 07:00 Resp 18 11/22/17 07:00 BP 144/81 11/22/17 07:00 Pulse Ox 96 11/22/17 07:00 Intake & Output 11/21/17 11/22/17 11/22/17 18:59 06:59 18:59 Other: # Voids 3 2 - Exam PHYSICAL EXAMINATION: GENERAL: The patient is alert and oriented x3, not in any acute distress. Well developed, well nourished. HEENT: Pupils are round and equally reacting to light. EOMI. No scleral icterus. No conjunctival pallor. Normocephalic, atraumatic. No pharyngeal erythema. No thyromegaly. CARDIOVASCULAR: S1 and S2 present. No murmurs, rubs, or gallops. PULMONARY: Chest is clear to auscultation, no wheezing or crackles. ABDOMEN: Soft, nontender, nondistended, normoactive bowel sounds. No palpable organomegaly. MUSCULOSKELETAL: No joint swelling or deformity. EXTREMITIES: No cyanosis, clubbing, or pedal edema. NEUROLOGICAL: Gross neurological examination did not reveal any focal deficits. SKIN: No rashes. - Labs CBC & Chem 7: 11/21/17 07:57 11/22/17 08:38 Labs: Abnormal Lab Results - Last 24 Hours (Table) 11/22/17 Range/Units 08:38 Sodium 130 L (137-145) mmol/L Carbon Dioxide 18 L (22-30) mmol/L BUN 3 L (9-20) mg/dL Creatinine 0.40 L (0.66-1.25) mg/dL Glucose 113 H (74-99) mg/dL Assessment and Plan Plan: Assessment and Plan Assessment: 1. Electrolyte imbalance; hyponatremia/hypokalemia/hypomagnesemia - We will make electrolyte supplementation and continue to monitor electrolytes closely - Patient might need oral maintenance electrolyte supplement if levels continue to drop 2. Dehydration; we will continue with IV fluid hydration - We will monitor strict NABILA's, daily weights, renal function and electrolytes 3. Transaminitis; metastatic liver involvement with colon cancer 4. Hypertension; patient remains on amlodipine 10 mg by mouth daily - We will monitor blood pressure closely and make adjustments if blood pressure fluctuates 5. Metastatic colon cancer; with liver and lung involvement - Patient is currently on chemotherapy with 1 cycle remaining; plan is to decrease dose or pulmonary last cycle - Per oncology patient will need restaging computed tomography scan after cycle 12 of chemo 6. Anorexia/protein calorie malnutrition - Patient is started on megestrol 200 mg by mouth 3 times a day - Patient is encouraged to have frequent smaller meals - Dietary supplement is recommended 7. DVT/GI prophylaxis; heparin/Pepcid CODE STATUS; full code
[2017-11-22] MEDS: 0.9% NACL WITH KCL 40 MEQ/L 1,000 ML IV SCH ×2 (14:13→21:09)
[2017-11-23 06:30] VITALS: BP 132/85; PULSE 104; RESP 14; TEMP 99.6
[2017-11-23] MEDS: 0.9% NACL WITH KCL 40 MEQ/L 1,000 ML IV SCH (07:29)
[2017-11-23] MEDS: MEGESTROL 400 MG/10 ML CUP PO SCH ×2 (07:30→12:19)
[2017-11-23] MEDS: HEPARIN SODIUM,PORCINE 5,000 UNIT/ML 1 ML VIAL SQ SCH (07:31)
[2017-11-23] MEDS: PANTOPRAZOLE 40 MG/10 ML VIAL IV SCH (07:31)
[2017-11-23] MEDS: ASPIRIN 81 MG PO SCH (07:31)
[2017-11-23] MEDS: MAGNESIUM OXIDE 400 MG TAB PO SCH (07:32)
[2017-11-23] MEDS: amLODIPine 10 MG TAB PO SCH (07:32)
[2017-11-23] MEDS: FAMOTIDINE 20 MG TAB PO SCH (07:32)
[2017-11-23] MEDS: HYDROcodone/APAP 5-325MG 1 EACH TAB PO PRN ×2 (07:44→13:27)
[2017-11-23] MEDS: LORazepam 0.5 MG TAB PO SCH ×2 (07:44→14:35)
[2017-11-23 08:14] LABS: Anion Gap 9 mmol/L; Blood Urea Nitrogen 4 mg/dL (9-20); Carbon Dioxide 17 mmol/L (22-30); Chloride 104 mmol/L (98-107); Glucose 90 mg/dL (74-99); Potassium 4.7 mmol/L (3.5-5.1); Sodium 130 mmol/L (137-145)
[2017-11-23 09:27] LABS: ALT 127 U/L (21-72); AST 248 U/L (17-59); Albumin 3.1 g/dL (3.5-5.0); Alkaline Phosphatase 518 U/L (38-126); Anion Gap 8 mmol/L; Blood Urea Nitrogen 5 mg/dL (9-20); Carbon Dioxide 17 mmol/L (22-30); Chloride 104 mmol/L (98-107); Glucose 90 mg/dL (74-99); Magnesium 1.6 mg/dL (1.6-2.3); Potassium 4.7 mmol/L (3.5-5.1); Sodium 129 mmol/L (137-145); Total Bilirubin 0.8 mg/dL (0.2-1.3); Total Protein 6.5 g/dL (6.3-8.2)
[2017-11-23 11:44] VITALS: BMI 20.9
--- NOTE | 2017-11-23 14:30 | P.DS ---
Providers Date of admission: 11/20/17 16:34 Attending physician: Rohit Rose MD Consults: 11/20/17 16:44 Consult Physician Urgent Consulting Provider: Guillermo Sage Consult Reason/Comments: Oncological care Do you want consulting provider notified?: Already Contacted Primary care physician: [facility] Course: 56-year-old admitted secondary to hyponatremia intravascular volume depletion contributing to generalized weakness. Patient has history of metastatic colon cancer receiving chemotherapy. His generalized weakness is mostly related to cancer and chemotherapy itself rather than intravascular depletion. Patient's sodium did improve to 130 continue with IV fluids. 11/23/2017 Patient remains hyponatremic and do not believe patient is hypervolemic hyponatremia may have SIADH from his cancer. Patient still comparing of weakness although improved a little bit. His weakness is mostly secondary to cancer cachexia on chemotherapy itself rather than hyponatremia. Physical therapy and occupational therapy evaluated the patient they are not recommending any subacute rehabilitation. Patient declined home care. Patient will be discharged with close follow-up with oncology as an outpatient. PHYSICAL EXAMINATION: GENERAL: The patient is alert and oriented x3, not in any acute distress. Well developed, well nourished. HEENT: Pupils are round and equally reacting to light. EOMI. No scleral icterus. No conjunctival pallor. Normocephalic, atraumatic. No pharyngeal erythema. No thyromegaly. CARDIOVASCULAR: S1 and S2 present. No murmurs, rubs, or gallops. PULMONARY: Chest is clear to auscultation, no wheezing or crackles. ABDOMEN: Soft, nontender, nondistended, normoactive bowel sounds. No palpable organomegaly. MUSCULOSKELETAL: No joint swelling or deformity. EXTREMITIES: No cyanosis, clubbing, or pedal edema. NEUROLOGICAL: Gross neurological examination did not reveal any focal deficits. SKIN: No rashes. -Hyponatremia probably secondary to SIADH, if it worsens patient will need fluid restriction as of now dehydration is a concern because of which I'm not restricting his by mouth intake at home -Dehydration -Mild transaminitis secondary to metastatic colon cancer -Hypertension -Cancer cachexia and protein calorie malnutrition Plan - Discharge Summary New Discharge Prescriptions: No Action LORazepam [Ativan] 0.5 mg PO BID HYDROcodone/APAP 5-325MG [[place] 5-325] 1 tab PO Q6H PRN PRN Reason: Pain amLODIPine [Norvasc] 10 mg PO DAILY Aspirin EC [Ecotrin Low Dose] 81 mg PO DAILY Megestrol [Megace] 200 mg PO AC-TID Discharge Medication List LORazepam [Ativan] 0.5 mg PO BID 05/14/17 [History] HYDROcodone/APAP 5-325MG [[place] 5-325] 1 tab PO Q6H PRN 10/05/17 [History] Aspirin EC [Ecotrin Low Dose] 81 mg PO DAILY 11/13/17 [History] Megestrol [Megace] 200 mg PO AC-TID 11/13/17 [History] amLODIPine [Norvasc] 10 mg PO DAILY 11/13/17 [History] Follow up Appointment(s)/Referral(s): Gee Cancino MD [Primary Care Provider] - 1-2 days
--- NOTE | 2017-11-23 16:11 | P.PN ---
Subjective Progress Note Date: 11/23/17 Principal diagnosis: weakness, dehydration, on chemo Pt seen in follow up, he is taking megace as prescribed and that is helping his appetite, has mild oral irritation, no nausea, vomiting, he is having diarrhea when he urinates, no swelling or pain, feels weak and SOB with exertion, can ambulate slowly. Objective - Vital Signs Vital signs: Vital Signs Temp 99.6 F 11/23/17 06:29 Pulse 104 H 11/23/17 06:29 Resp 14 11/23/17 06:29 BP 132/85 11/23/17 06:29 Pulse Ox 97 11/23/17 06:29 Intake & Output 11/22/17 11/23/17 11/23/17 18:59 06:59 18:59 Intake Total 1600 1240 Balance 1600 1240 Weight 58.967 kg Intake: Intake, IV Titration 1600 400 Amount 0.9% NaCl with KCl 40 Meq 1600 400 /l 1,000 ml @ 100 mls/hr IV .Q10H BECKY Rx#: [id number] Oral 840 Other: Voiding Method Toilet # Voids 3 4 - Constitutional General appearance: Present: cooperative, no acute distress, thin - EENT EENT Comment(s): glossal redness, no ulcer or thrush Eyes: Present: anicteric sclerae - Respiratory Respiratory: bilateral: CTA - Cardiovascular Rhythm: regular Heart sounds: normal: S1, S2 Abnormal Heart Sounds: Absent: systolic murmur, diastolic murmur, rub, S3 Gallop , S4 Gallop, click, other - Peripheral edema foot Peripheral Edema: bilateral: None - Gastrointestinal General gastrointestinal: Present: normal bowel sounds, soft - Neurologic Neurologic: Present: CNII-XII intact - Musculoskeletal Musculoskeletal: Present: generalized weakness - Psychiatric Psychiatric: Present: A&O x's 3, appropriate affect, intact judgment & insight - Labs CBC & Chem 7: 11/21/17 07:57 11/23/17 07:25 Labs: Abnormal Lab Results - Last 24 Hours (Table) 11/23/17 11/23/17 Range/Units 07:25 07:25 Sodium 130 L 129 L (137-145) mmol/L Carbon Dioxide 17 L 17 L (22-30) mmol/L BUN 4 L 5 L (9-20) mg/dL Creatinine 0.42 L 0.43 L (0.66-1.25) mg/dL AST 248 H (17-59) U/L ALT 127 H (21-72) U/L Alkaline Phosphatase 518 H (38-126) U/L Albumin 3.1 L (3.5-5.0) g/dL Assessment and Plan (1) Metastatic colon cancer to liver Narrative/Plan: Pt has been doing well on chemo up until these last 2 cycles. He will cont on sched for chemo and be evaluated prior to treatment. He is due for f/u imaging that has already been scheduled outpatient, he will keep this appt. Status: Acute Priority: High Code(s): C18.9 - MALIGNANT NEOPLASM OF COLON, UNSPECIFIED; C78.7 - SECONDARY MALIG NEOPLASM OF LIVER AND INTRAHEPATIC BILE DUCT SNOMED Code(s): 04196889 (2) Dehydration Narrative/Plan: Pt has been sched for outpt hydration for tomorrow as he is continuing to have diarrhea. Status: Acute Priority: Medium Code(s): E86.0 - DEHYDRATION SNOMED Code(s) : 08760564 (3) Fall Status: Acute Code(s): W19.XXXA - UNSPECIFIED FALL, INITIAL ENCOUNTER SNOMED Code(s): 6573866 (4) Rib contusion Narrative/Plan: S/P fall, pt denies syncopy. Educated pt on splinting and how important it is to cough and deep breathe to avoid pneumonia-pt demonstrated behavior Status: Acute Code(s): S20.219A - CONTUSION OF UNSPECIFIED FRONT WALL OF THORAX, INIT ENCNTR SNOMED Code(s): 525065896 Plan: Will cont to monitor electrolytes outpt.
== END 2017-11-23 15:00 | disposition home or self-care (01) | DRG 644 ==
LOC: EC 13:32 → 4MS4W 16:34
PROVIDERS: ADMIT Internal Medicine; ATTEND Internal Medicine
DX: E22.2 Syndrome of inappropriate secretion of antidiuretic hormone (principal); E46 Unspecified protein-calorie malnutrition; R64 Cachexia; C18.9 Malignant neoplasm of colon, unspecified; C78.7 Secondary malignant neoplasm of liver and intrahepatic bile duct; C78.00 Secondary malignant neoplasm of unspecified lung; E83.42 Hypomagnesemia; E86.0 Dehydration; E87.6 Hypokalemia; J44.9 Chronic obstructive pulmonary disease, unspecified; E78.5 Hyperlipidemia, unspecified; I10 Essential (primary) hypertension; M19.91 Primary osteoarthritis, unspecified site; S20.219A Contusion of unspecified front wall of thorax, initial encounter; Z68.21 Body mass index [BMI] 21.0-21.9, adult; F17.200 Nicotine dependence, unspecified, uncomplicated; Z71.3 Dietary counseling and surveillance; Z71.6 Tobacco abuse counseling; Z79.82 Long term (current) use of aspirin; Z79.818 Long term (current) use of other agents affecting estrogen receptors and estrogen levels; Z79.899 Other long term (current) drug therapy; W19.XXXA Unspecified fall, initial encounter; Z80.3 Family history of malignant neoplasm of breast
CPT/HCPCS: 36415; 70450; 71046; 80048; 80053; 81003; 83735; 84100; 84132; 85025; 85610; 85730; 93005; 96361; 96365; 96367; 96375; 99285

== ENCOUNTER 2017-12-10 14:30 | Emergency (ER) | payer OTHER ==
[2017-12-10 15:19] VITALS: TEMP 97.5
[2017-12-10] MEDS ORDERED: SODIUM CHLORIDE 0.9% 1,000 ML IV STA ×2 (16:29→18:44)
--- NOTE | 2017-12-10 16:36 | ED ---
General Adult HPI - General Chief complaint: Nausea/Vomiting/Diarrhea Stated complaint: Etoh/fell into coffee table Time Seen by Provider: 12/10/17 16:07 Source: patient, RN notes reviewed Mode of arrival: wheelchair Limitations: no limitations - History of Present Illness Initial comments: Patient 57-year-old male with significant past medical history for colorectal cancer, presented to the emergency room today with chief complaint of feeling lethargic rundown. He does not that he had his last dose of chemo today. Patient states she's been on this regimen over the last 6 months since it was the last dose. He does not that his appetites been somewhat decreased. Patient denies any other complaints or symptoms. Patient denies any recent fever , chills, shortness of breath, chest pain, dysuria or hematuria, constipation or diarrhea, headaches or visual changes, or any other complaints. - Related Data Home Medications Medication Instructions Recorded Confirmed HYDROcodone/APAP 5-325MG [[place] 1 tab PO Q6H PRN 10/05/17 12/10/17 5-325] Aspirin EC [Ecotrin Low Dose] 81 mg PO DAILY 11/13/17 12/10/17 amLODIPine [Norvasc] 10 mg PO DAILY 11/13/17 12/10/17 Adderall (Unknown Dose) 1 tab PO DIRECTED 12/10/17 12/10/17 LORazepam [Ativan] 1 mg PO BID 12/10/17 12/10/17 Allergies Allergy/AdvReac Type Severity Reaction Status Date / Time No Known Allergies Allergy Verified 12/10/17 16:54 Review of Systems ROS Statement: Those systems with pertinent positive or pertinent negative responses have been documented in the HPI. ROS Other: All systems not noted in ROS Statement are negative. Past Medical History Past Medical History: Cancer, COPD, Hyperlipidemia, Hypertension Additional Past Medical History / Comment(s): Arthritis. colon cancer History of Any Multi-Drug Resistant Organisms: None Reported Past Surgical History: Tonsillectomy Additional Past Surgical History / Comment(s): Colonoscopy 2018 Past Anesthesia/Blood Transfusion Reactions: No Reported Reaction Past Psychological History: No Psychological Hx Reported Smoking Status: Current some day smoker Past Alcohol Use History: Occasional Past Drug Use History: None Reported - Past Family History Sister(s) Family Medical History: Cancer Additional Family Medical History / Comment(s): Sister Breast Ca General Exam - General Exam Comments Initial Comments: General: The patient is awake and alert, in no distress, and does not appear acutely ill. Eye: Pupils are equal, round and reactive to light, extra-ocular movements are intact. No nystagmus. There is normal conjunctiva bilaterally. No signs of icterus. Ears, nose, mouth and throat: There are moist mucous membranes and no oral lesions. Neck: The neck is supple, there is no tenderness or JVD. Cardiovascular: There is a regular rate and rhythm. No murmur, rub or gallop is appreciated. Respiratory: Lungs are clear to auscultation, respirations are non-labored, breath sounds are equal. No wheezes, stridor, rales, or rhonchi. Gastrointestinal: Soft, non-distended. Musculoskeletal: Normal ROM, no tenderness. Strength 5/5. Sensation intact. Pulses equal bilaterally 2+. Neurological: A&O x 3. CN II-XII intact, There are no obvious motor or sensory deficits. Coordination appears grossly intact. Speech is normal. Skin: Skin is warm and dry and no rashes or lesions are noted. Psychiatric: Cooperative, appropriate mood & affect, normal judgment. Limitations: no limitations Course Vital Signs 12/10/17 12/10/17 15:12 18:42 Temperature 97.5 F L Pulse Rate 124 H 115 H Respiratory 20 15 Rate Blood Pressure 119/74 118/81 O2 Sat by Pulse 96 99 Oximetry EKG Findings - EKG Comments: EKG Findings:: EKG performed at 1638: Shows sinus tachycardia 104 bpm DC interval 112. QRS 100. QT/QTC 378/497. No acute changes. Medical Decision Making - Medical Decision Making Patient reexamined at this time shows no signs of distress. Patient clinically peter been up moving around freely in the room. Patient labs been reviewed. He does admit that his had some falls recently. Alcohol was positive. Eventually does admit to drinking last night. Patient's also been on chemotherapy. He states he was somewhat lethargic and nauseous. Generalized weakness. Patient feeling much better after IV fluids. Patient will have a ride come and pick him up here in the ER. - Lab Data Result diagrams: 12/10/17 17:01 12/10/17 17:01 Lab Results 12/10/17 12/10/17 12/10/17 Range/Units 17:01 17:01 17:01 WBC 8.5 (3.8-10.6) k/uL RBC 4.54 (4.30-5.90) m/uL Hgb 15.3 (13.0-17.5) gm/dL Hct 45.1 (39.0-53.0) % MCV 99.3 (80.0-100.0) fL MCH 33.8 (25.0-35.0) pg MCHC 34.0 (31.0-37.0) g/dL RDW 15.9 H (11.5-15.5) % Plt Count 392 D (150-450) k/uL Neutrophils % 75 % Lymphocytes % 13 % Monocytes % 2 % Eosinophils % 9 % Basophils % 1 % Neutrophils # 6.4 (1.3-7.7) k/uL Lymphocytes # 1.1 (1.0-4.8) k/uL Monocytes # 0.2 (0-1.0) k/uL Eosinophils # 0.7 (0-0.7) k/uL Basophils # 0.0 (0-0.2) k/uL Macrocytosis Slight PT (9.0-12.0) sec INR (<1.2) APTT (22.0-30.0) sec Sodium 145 (137-145) mmol/L Potassium 3.8 (3.5-5.1) mmol/L Chloride 108 H (98-107) mmol/L Carbon Dioxide 23 (22-30) mmol/L Anion Gap 14 mmol/L BUN 11 (9-20) mg/dL Creatinine 0.50 L (0.66-1.25) mg/dL Est GFR (CKD-EPI)AfAm >90 (>60 ml/min/1.73 sqM) Est GFR (CKD-EPI)NonAf >90 (>60 ml/min/1.73 sqM) Glucose 95 (74-99) mg/dL Calcium 9.6 (8.4-10.2) mg/dL Total Bilirubin 0.9 (0.2-1.3) mg/dL AST 76 H (17-59) U/L ALT 58 (21-72) U/L Alkaline Phosphatase 417 H (38-126) U/L Total Creatine Kinase 42 L (55-170) U/L CK-MB (CK-2) 0.3 (0.0-2.4) ng/mL CK-MB (CK-2) Rel Index 0.7 Troponin I <0.012 (0.000-0.034) ng/mL Total Protein 8.0 (6.3-8.2) g/dL Albumin 4.3 (3.5-5.0) g/dL Urine Color Urine Appearance (Clear) Urine pH (5.0-8.0) Ur Specific [place] (1.001-1.035) Urine Protein (Negative) Urine Glucose (UA) (Negative) Urine Ketones (Negative) Urine Blood (Negative) Urine Nitrite (Negative) Urine Bilirubin (Negative) Urine Urobilinogen (<2.0) mg/dL Ur Leukocyte Esterase (Negative) Serum Alcohol 263 mg/dL 12/10/17 12/10/17 Range/Units 17:01 17:17 WBC (3.8-10.6) k/uL RBC (4.30-5.90) m/uL Hgb (13.0-17.5) gm/dL Hct (39.0-53.0) % MCV (80.0-100.0) fL MCH (25.0-35.0) pg MCHC (31.0-37.0) g/dL RDW (11.5-15.5) % Plt Count (150-450) k/uL Neutrophils % % Lymphocytes % % Monocytes % % Eosinophils % % Basophils % % Neutrophils # (1.3-7.7) k/uL Lymphocytes # (1.0-4.8) k/uL Monocytes # (0-1.0) k/uL Eosinophils # (0-0.7) k/uL Basophils # (0-0.2) k/uL Macrocytosis PT 9.9 (9.0-12.0) sec INR 1.0 (<1.2) APTT 23.1 (22.0-30.0) sec Sodium (137-145) mmol/L Potassium (3.5-5.1) mmol/L Chloride (98-107) mmol/L Carbon Dioxide (22-30) mmol/L Anion Gap mmol/L BUN (9-20) mg/dL Creatinine (0.66-1.25) mg/dL Est GFR (CKD-EPI)AfAm (>60 ml/min/1.73 sqM) Est GFR (CKD-EPI)NonAf (>60 ml/min/1.73 sqM) Glucose (74-99) mg/dL Calcium (8.4-10.2) mg/dL Total Bilirubin (0.2-1.3) mg/dL AST (17-59) U/L ALT (21-72) U/L Alkaline Phosphatase (38-126) U/L Total Creatine Kinase (55-170) U/L CK-MB (CK-2) (0.0-2.4) ng/mL CK-MB (CK-2) Rel Index Troponin I (0.000-0.034) ng/mL Total Protein (6.3-8.2) g/dL Albumin (3.5-5.0) g/dL Urine Color Yellow Urine Appearance Clear (Clear) Urine pH 6.0 (5.0-8.0) Ur Specific [place] 1.009 (1.001-1.035) Urine Protein Trace H (Negative) Urine Glucose (UA) Negative (Negative) Urine Ketones Negative (Negative) Urine Blood Negative (Negative) Urine Nitrite Negative (Negative) Urine Bilirubin Negative (Negative) Urine Urobilinogen <2.0 (<2.0) mg/dL Ur Leukocyte Esterase Negative (Negative) Serum Alcohol mg/dL Disposition Clinical Impression: Metastatic colon cancer to liver, Fall, Elevated ETOH level Disposition: HOME SELF-CARE Condition: Stable Instructions: Acute Nausea and Vomiting (ED) Additional Instructions: Please use medication as discussed. Please follow-up with family doctor in the next 2 days of symptoms have not improved. Please return to emergency room if the symptoms increase or worsen or for any other concerns. Is patient prescribed a controlled substance at d/c from ED?: No Referrals: None,Stated [Primary Care Provider] - 1-2 days Time of Disposition: 19:16
[2017-12-10 17:18] LABS: Basophils % (A) 1 %; Eosinophils # (A) 0.7 k/uL (0-0.7); Eosinophils % (A) 9 %; HCT 45.1 % (39.0-53.0); HGB 15.3 gm/dL (13.0-17.5); Lymphocytes # (A) 1.1 k/uL (1.0-4.8); Lymphocytes % (A) 13 %; MCH 33.8 pg (25.0-35.0); MCV 99.3 fL (80.0-100.0); Macrocytosis Slight; Mean Platelet Volume 6.3; Monocytes # (A) 0.2 k/uL (0-1.0); Monocytes % (A) 2 %; Neutrophils # (A) 6.4 k/uL (1.3-7.7); Neutrophils % (A) 75 %; RBC 4.54 m/uL (4.30-5.90); RDW 15.9 % (11.5-15.5); WBC 8.5 k/uL (3.8-10.6)
--- NOTE | 2017-12-10 17:19 | XR ---
EXAMINATION TYPE: XR chest 2V DATE OF EXAM: 12/10/2017 COMPARISON: 11/20/2017 HISTORY: Weakness TECHNIQUE: Frontal and lateral views of the chest are obtained. FINDINGS: Heart and mediastinum are normal. Lungs are clear. Diaphragm is normal. There is right aspen tral venous catheter with tip in the superior vena cava. There is no pleural effusion. Bony thorax is intact. There are bilateral nipple shadows. IMPRESSION: Normal chest. No change.
[2017-12-10 17:25] LABS: Platelet Count 392 k/uL (150-450)
[2017-12-10 17:28] LABS: Partial Thromboplastin Time 23.1 sec (22.0-30.0); Prothrombin Time 9.9 sec (9.0-12.0)
[2017-12-10 17:32] LABS: ALT 58 U/L (21-72); AST 76 U/L (17-59); Albumin 4.3 g/dL (3.5-5.0); Alkaline Phosphatase 417 U/L (38-126); Anion Gap 14 mmol/L; Blood Urea Nitrogen 11 mg/dL (9-20); Calcium 9.6 mg/dL (8.4-10.2); Carbon Dioxide 23 mmol/L (22-30); Chloride 108 mmol/L (98-107); Glucose 95 mg/dL (74-99); Potassium 3.8 mmol/L (3.5-5.1); Sodium 145 mmol/L (137-145); Total Bilirubin 0.9 mg/dL (0.2-1.3)
[2017-12-10 17:34] LABS: Alcohol 263 mg/dL
[2017-12-10 17:37] LABS: Creatine Kinase 42 U/L (55-170)
[2017-12-10 17:46] LABS: Creatine Kinase MB 0.3 ng/mL (0.0-2.4)
[2017-12-10 17:50] LABS: Troponin I <0.012 ng/mL (0.000-0.034)
[2017-12-10 18:00] LABS: Appearance,Urine Clear (Clear); Bilirubin,Urine Negative (Negative); Blood,Urine Negative (Negative); Color,Urine Yellow; Glucose,Urine (UA) Negative (Negative); Ketones,Urine Negative (Negative); Leukocyte Esterase,Urine Negative (Negative); Nitrite,Urine Negative (Negative); Protein,Urine Trace (Negative); Specific Gravity,Urine 1.009 (1.001-1.035); Urobilinogen,Urine <2.0 mg/dL (<2.0)
[2017-12-10 18:43] VITALS: BP 118/81; PULSE 115; RESP 15
== END 2017-12-10 19:43 | disposition home or self-care (01) ==
LOC: EC 14:30
DX: C19 Malignant neoplasm of rectosigmoid junction (principal); C78.7 Secondary malignant neoplasm of liver and intrahepatic bile duct; R78.0 Finding of alcohol in blood; I10 Essential (primary) hypertension; M19.90 Unspecified osteoarthritis, unspecified site; Z92.21 Personal history of antineoplastic chemotherapy; F17.200 Nicotine dependence, unspecified, uncomplicated; Z79.82 Long term (current) use of aspirin; Z79.899 Other long term (current) drug therapy; W18.2XXA Fall in (into) shower or empty bathtub, initial encounter; Y92.009 Unspecified place in unspecified non-institutional (private) residence as the place of occurrence of the external cause
CPT/HCPCS: 36415; 71046; 80053; 80320; 81003; 82550; 82553; 84484; 85025; 85610; 85730; 93005; 96360; 96361; 99284

== ENCOUNTER 2017-12-29 12:07 | Day surgery (SDC) | payer OTHER ==
[2017-12-24 15:09] VITALS: BMI 20.9
[~2017-12-29 12:07] MED LIST changes: -HYDROcodone/APAP 5-325MG 1 EACH TAB PO PRN; +LACTATED RINGERS 1,000 ML IV SCH; +LIDOCAINE 1% 20 ML VIAL (10MG/ML) FOR IV START INTRADERMA PRN
[2017-12-29 12:22] VITALS: TEMP 98
[2017-12-29] MEDS ORDERED: LACTATED RINGERS 1,000 ML IV ONE (12:25)
[2017-12-29] MEDS ORDERED: PROPOFOL 10 MG/ML 20 ML VIAL IV ONE (13:13)
--- NOTE | 2017-12-29 13:33 | P.OP ---
Date of Procedure: 12/29/17 Preoperative Diagnosis: Metastatic colorectal CA Postoperative Diagnosis: Same Procedure(s) Performed: Flex sig with biopsy Anesthesia: MAC Surgeon: Raymond Culp Condition: stable Disposition: same day Operative Findings: Near circumferential rectal mass at 10 cm Description of Procedure: Patient was brought into the Endo suite timeout performed correct patient correct procedure correct site was verified rectal exam was performed around his were noted scope was passed from the anus into the rectum at approximately 10-15 cm there was a large near obstructing rectal mass. This is consistent with his history of colorectal cancer and metastatic cancer. The mass was near circumferential. The scope was unable to be passed. There was stool noted swelling pass the mass so was not completely obstructing. Biopsy was taken procedure was then completed patient tolerated procedure well no apparent complications
[2017-12-29 13:45] VITALS: PULSE 84
[2017-12-29 14:24] VITALS: BP 141/89; RESP 24
== END 2017-12-29 14:28 | disposition home or self-care (01) ==
LOC: ORWHC2ENDO 12:07
PROVIDERS: ATTEND Student in an Organized Health Care Education/Training Program
DX: C20 Malignant neoplasm of rectum (principal); C78.5 Secondary malignant neoplasm of large intestine and rectum; F17.210 Nicotine dependence, cigarettes, uncomplicated; I10 Essential (primary) hypertension; E78.5 Hyperlipidemia, unspecified; Z79.82 Long term (current) use of aspirin; Z79.891 Long term (current) use of opiate analgesic; Z85.038 Personal history of other malignant neoplasm of large intestine; Z79.899 Other long term (current) drug therapy
CPT/HCPCS: 88305; 45331; J2704

== ENCOUNTER 2018-02-06 16:46 | Inpatient (IN) | payer OTHER ==
[2018-02-06] MEDS ORDERED: PANTOPRAZOLE 40 MG/10 ML VIAL IVP STA (17:15)
[2018-02-06] MEDS ORDERED: SODIUM CHLORIDE 0.9% 500 ML 500 ML IV SCH (17:15)
--- NOTE | 2018-02-06 17:17 | ED ---
General Adult HPI - General Chief complaint: Seizure Stated complaint: Rectal Bleeding Time Seen by Provider: 02/06/18 17:00 Source: patient, RN notes reviewed, old records reviewed Mode of arrival: wheelchair Limitations: altered mental status - History of Present Illness Initial comments: Patient is a pleasant 57-year-old male presenting to the emergency department with reported chief complaint of bleeding. While patient was starting to be triaged seizure was witnessed and generalized tonic-clonic lasting less than a minute. Patient is slightly confused at this time. Patient denies any history of seizure activity. Patient first is unclear if there is any bleeding and then states he may have had some rectal bleeding over the past couple of days. Patient denies alcohol intake however chart review does have some concern for previous alcohol visits. - Related Data Home Medications Medication Instructions Recorded Confirmed HYDROcodone/APAP 5-325MG [[place] 1 tab PO Q6H PRN 10/05/17 02/06/18 5-325] amLODIPine [Norvasc] 10 mg PO HS 11/13/17 02/06/18 Albuterol Inhaler [Ventolin Hfa 1 - 2 puff INHALATION RT-Q6H PRN 12/24/17 Inhaler] Acetaminophen [Tylenol] 650 mg PO Q4H PRN 02/06/18 02/06/18 Allergies Allergy/AdvReac Type Severity Reaction Status Date / Time No Known Allergies Allergy Verified 02/06/18 18:04 Review of Systems ROS Statement: Those systems with pertinent positive or pertinent negative responses have been documented in the HPI. ROS Other: All systems not noted in ROS Statement are negative. Constitutional: Denies: fever Eyes: Denies: eye pain ENT: Denies: ear pain Respiratory: Denies: cough, dyspnea Cardiovascular: Denies: chest pain Endocrine: Denies: fatigue Gastrointestinal: Reports: hematochezia. Denies: vomiting Musculoskeletal: Denies: back pain Skin: Denies: rash Neurological: Denies: headache, weakness Past Medical History Past Medical History: Cancer, COPD, Hyperlipidemia, Hypertension, Pneumonia Additional Past Medical History / Comment(s): Arthritis. colon cancer dx 04/19 received 12 treatments of chemo. has port rt upper chest History of Any Multi-Drug Resistant Organisms: None Reported Past Surgical History: Tonsillectomy Additional Past Surgical History / Comment(s): Colonoscopy 2018 Past Anesthesia/Blood Transfusion Reactions: No Reported Reaction Past Psychological History: No Psychological Hx Reported Smoking Status: Former smoker - Past Family History Sister(s) Family Medical History: Cancer Additional Family Medical History / Comment(s): Sister Breast Ca General Exam Limitations: altered mental status General appearance: alert, in no apparent distress Head exam: Present: atraumatic Eye exam: Present: normal appearance, PERRL, EOMI ENT exam: Present: normal oropharynx Neck exam: Present: normal inspection Respiratory exam: Present: normal lung sounds bilaterally Cardiovascular Exam: Present: tachycardia GI/Abdominal exam: Present: soft. Absent: tenderness Rectal exam: Present: normal inspection, normal rectal tone Extremities exam: Present: normal inspection. Absent: pedal edema, calf tenderness Neurological exam: Present: alert, altered, CN II-XII intact. Absent: motor sensory deficit Expanded Patient oriented to: Present: person, place. Absent: time Cranial nerves: EOM's Intact: Normal Motor strength exam: RUE: 5, LUE: 5, RLE: 5, LLE: 5 Eye Response: (4) open spontaneously Motor Response: (6) obeys commands Verbal Response: (4) confused conversation Psychiatric exam: Present: normal affect, normal mood Skin exam: Present: normal color. Absent: rash Course Vital Signs 02/06/18 02/06/18 02/06/18 17:04 17:46 19:06 Temperature 100.9 F H 99.0 F Pulse Rate 133 H 118 H 108 H Respiratory 18 18 18 Rate Blood Pressure 198/79 139/79 144/87 O2 Sat by Pulse 97 97 96 Oximetry - Reevaluation(s) Reevaluation #1: 02/06/18 19:26 Patient reevaluated and improved. Patient states he has been having rectal bleeding for several days now. Patient states he does have history of seizures however not in many years. Patient does admit to drinking alcohol several days ago and stopping. Patient seems somewhat limited and providing information regarding his alcohol intake. Patient states he did finished chemotherapy and was switched to oral medication for his colon cancer that has spread to the liver and may be some place else. Case was discussed with Dr. Granados who will consult. He does recommend rechecking PT INR PTT. Case also discussed in detail with Dr. Herbert, who will admit. 02/06/18 19:52 Lactic acidosis is likely secondary to recent seizure. No source of infection is identified. EKG Findings - EKG Comments: EKG Findings:: Sinus tachycardia 125. WA 114. QRS 80. QT 414. QTC 597. Normal axis. Normal QRS. No ST elevation. Medical Decision Making - Lab Data Result diagrams: 02/06/18 17:25 02/06/18 17:25 Lab Results 02/06/18 02/06/18 02/06/18 Range/Units 17:25 17:25 17:25 WBC 12.7 H (3.8-10.6) k/uL RBC 2.86 L (4.30-5.90) m/uL Hgb 9.9 L (13.0-17.5) gm/dL Hct 30.4 L (39.0-53.0) % MCV 106.3 H D (80.0-100.0) fL MCH 34.6 (25.0-35.0) pg MCHC 32.5 (31.0-37.0) g/dL RDW 15.6 H (11.5-15.5) % Plt Count 141 L (150-450) k/uL Neutrophils % 81 % Lymphocytes % 7 % Monocytes % 8 % Eosinophils % 1 % Basophils % 0 % Neutrophils # 10.2 H (1.3-7.7) k/uL Lymphocytes # 0.9 L (1.0-4.8) k/uL Monocytes # 1.0 (0-1.0) k/uL Eosinophils # 0.1 (0-0.7) k/uL Basophils # 0.0 (0-0.2) k/uL Macrocytosis Moderate PT (9.0-12.0) sec INR (<1.2) APTT (22.0-30.0) sec Sodium 131 L (137-145) mmol/L Potassium 2.7 L* (3.5-5.1) mmol/L Chloride 89 L (98-107) mmol/L Carbon Dioxide 17 L (22-30) mmol/L Anion Gap 25 mmol/L BUN 7 L (9-20) mg/dL Creatinine 0.44 L (0.66-1.25) mg/dL Est GFR (CKD-EPI)AfAm >90 (>60 ml/min/1.73 sqM) Est GFR (CKD-EPI)NonAf >90 (>60 ml/min/1.73 sqM) Glucose 144 H (74-99) mg/dL Plasma Lactic Acid To 14.8 H* (0.7-2.0) mmol/L Calcium 8.5 (8.4-10.2) mg/dL Total Bilirubin 1.3 (0.2-1.3) mg/dL AST 204 H (17-59) U/L ALT 45 (21-72) U/L Alkaline Phosphatase 1048 H (38-126) U/L Total Protein 6.6 (6.3-8.2) g/dL Albumin 3.3 L (3.5-5.0) g/dL Urine Color Urine Appearance (Clear) Urine pH (5.0-8.0) Ur Specific [place] (1.001-1.035) Urine Protein (Negative) Urine Glucose (UA) (Negative) Urine Ketones (Negative) Urine Blood (Negative) Urine Nitrite (Negative) Urine Bilirubin (Negative) Urine Urobilinogen (<2.0) mg/dL Ur Leukocyte Esterase (Negative) Stool Occult Blood (Negative) Serum Alcohol <10 mg/dL 02/06/18 02/06/18 02/06/18 Range/Units 17:25 17:32 19:05 WBC (3.8-10.6) k/uL RBC (4.30-5.90) m/uL Hgb (13.0-17.5) gm/dL Hct (39.0-53.0) % MCV (80.0-100.0) fL MCH (25.0-35.0) pg MCHC (31.0-37.0) g/dL RDW (11.5-15.5) % Plt Count (150-450) k/uL Neutrophils % % Lymphocytes % % Monocytes % % Eosinophils % % Basophils % % Neutrophils # (1.3-7.7) k/uL Lymphocytes # (1.0-4.8) k/uL Monocytes # (0-1.0) k/uL Eosinophils # (0-0.7) k/uL Basophils # (0-0.2) k/uL Macrocytosis PT 27.1 H (9.0-12.0) sec INR 3.0 H (<1.2) APTT >200.0 H* (22.0-30.0) sec Sodium (137-145) mmol/L Potassium (3.5-5.1) mmol/L Chloride (98-107) mmol/L Carbon Dioxide (22-30) mmol/L Anion Gap mmol/L BUN (9-20) mg/dL Creatinine (0.66-1.25) mg/dL Est GFR (CKD-EPI)AfAm (>60 ml/min/1.73 sqM) Est GFR (CKD-EPI)NonAf (>60 ml/min/1.73 sqM) Glucose (74-99) mg/dL Plasma Lactic Acid To (0.7-2.0) mmol/L Calcium (8.4-10.2) mg/dL Total Bilirubin (0.2-1.3) mg/dL AST (17-59) U/L ALT (21-72) U/L Alkaline Phosphatase (38-126) U/L Total Protein (6.3-8.2) g/dL Albumin (3.5-5.0) g/dL Urine Color Yellow Urine Appearance Clear (Clear) Urine pH 7.5 (5.0-8.0) Ur Specific [place] 1.006 (1.001-1.035) Urine Protein Negative (Negative) Urine Glucose (UA) Negative (Negative) Urine Ketones Negative (Negative) Urine Blood Negative (Negative) Urine Nitrite Negative (Negative) Urine Bilirubin Negative (Negative) Urine Urobilinogen 4.0 (<2.0) mg/dL Ur Leukocyte Esterase Negative (Negative) Stool Occult Blood Positive (Negative) Serum Alcohol mg/dL - Radiology Data Radiology results: report reviewed (Computed tomography scan of the brain shows no acute intercranial process. Atrophy redemonstrated.), image reviewed (Chest x-ray shows no acute process. KUB shows no acute process.) Disposition Clinical Impression: Lower GI hemorrhage, Seizure Disposition: ADMITTED IP TO THIS HOSP Is patient prescribed a controlled substance at d/c from ED?: No Referrals: None,Stated [Primary Care Provider] - 1-2 days Decision Time: 19:28
[2018-02-06 17:45] LABS: Basophils % (A) 0 %; Eosinophils # (A) 0.1 k/uL (0-0.7); Eosinophils % (A) 1 %; HCT 30.4 % (39.0-53.0); HGB 9.9 gm/dL (13.0-17.5); Lymphocytes # (A) 0.9 k/uL (1.0-4.8); Lymphocytes % (A) 7 %; MCH 34.6 pg (25.0-35.0); MCHC 32.5 g/dL (31.0-37.0); Macrocytosis Moderate; Mean Platelet Volume 8.2; Monocytes % (A) 8 %; Neutrophils # (A) 10.2 k/uL (1.3-7.7); Neutrophils % (A) 81 %; Platelet Count 141 k/uL (150-450); RBC 2.86 m/uL (4.30-5.90); RDW 15.6 % (11.5-15.5); WBC 12.7 k/uL (3.8-10.6)
[2018-02-06 17:47] LABS: MCV 106.3 fL (80.0-100.0)
[2018-02-06 17:55] LABS: ALT 45 U/L (21-72); Albumin 3.3 g/dL (3.5-5.0); Alcohol <10 mg/dL; Alkaline Phosphatase 1048 U/L (38-126); Anion Gap 25 mmol/L; Blood Urea Nitrogen 7 mg/dL (9-20); Calcium 8.5 mg/dL (8.4-10.2); Carbon Dioxide 17 mmol/L (22-30); Chloride 89 mmol/L (98-107); Glucose 144 mg/dL (74-99); Sodium 131 mmol/L (137-145); Total Bilirubin 1.3 mg/dL (0.2-1.3); Total Protein 6.6 g/dL (6.3-8.2)
[2018-02-06 18:01] LABS: AST 204 U/L (17-59)
[2018-02-06 18:02] LABS: Prothrombin Time 27.1 sec (9.0-12.0)
[2018-02-06 18:05] LABS: Potassium 2.7 mmol/L (3.5-5.1)
[2018-02-06] MEDS ORDERED: POTASSIUM CHLORIDE 2 MEQ/ML 20 ML VIAL IVPB STA (18:07)
[2018-02-06] MEDS ORDERED: SODIUM CHLORIDE 0.9% 1,000 ML IV STA (18:07)
[2018-02-06] MEDS ORDERED: POTASSIUM CHLORIDE ER 20 MEQ TAB.ER PO STA (18:07)
[2018-02-06] MEDS ORDERED: POTASSIUM CHLORIDE 20 MEQ in WATER FOR INJECTION 1 100ML.BAG IVPB STA (18:14)
[2018-02-06 18:20] LABS: Partial Thromboplastin Time >200.0 sec (22.0-30.0)
--- NOTE | 2018-02-06 18:36 | CT ---
EXAMINATION TYPE: CT brain wo con DATE OF EXAM: 02/06/2018 COMPARISON: 11/20/2017 HISTORY: seizure today CT DLP: 1072.3 mGycm. Automated Exposure Control for Dose Reduction was Utilized. TECHNIQUE: CT scan of the head is performed without contrast. FINDINGS: [place] artifact from the clivus and calvarium limits evaluation of the lower cerebrum and c erebellar hemispheres. There is no acute intracranial hemorrhage or midline shift identified. There i s diffuse ventricular and sulcal prominence consistent with diffuse age-related cerebral atrophy. Gra y-white matter differentiation is preserved. The globes are intact and the visualized sinuses are cl ear. There is mild mucosal thickening of the ethmoid sinuses and polypoid mucosal thickening of the r ight maxillary sinus. Remainder the paranasal sinuses and mastoid air cells are well aerated. Atheros clerosis is seen of the intracranial vasculature. IMPRESSION: No acute intracranial process. There is mild diffuse age-related cerebral atrophy redem onstrated.
--- NOTE | 2018-02-06 18:37 | XR ---
EXAMINATION TYPE: XR chest 2V DATE OF EXAM: 02/06/2018 COMPARISON: 12/10/2017 HISTORY: Fever of unknown origin. TECHNIQUE: Frontal and lateral views of the chest are obtained. FINDINGS: Right-sided Mediport terminates in the superior vena cava, unchanged from the prior. There is no focal air space opacity, pleural effusion, or pneumothorax seen. The cardiac silhouette size is within normal limits. The osseous structures are intact. IMPRESSION: No acute cardiopulmonary process.
--- NOTE | 2018-02-06 18:42 | XR ---
EXAMINATION TYPE: XR abdomen 1V DATE OF EXAM: 02/06/2018 6:26 PM CLINICAL HISTORY: Fever TECHNIQUE: Single supine KUB image of the abdomen is obtained. COMPARISON: None. FINDINGS: Scattered gas is seen in non-distended small bowel loops. Gas and fecal material is seen in non-distended colon. There is no abnormal calcification appreciated. The lung bases are clear and th e osseous structures are intact. Mild degenerative changes of the femoral acetabular joints are seen. IMPRESSION: Nonobstructive bowel gas pattern.
[2018-02-06] MEDS ORDERED: NALOXONE 0.4 MG/ML 1 ML VIAL IV PRN (19:28)
[2018-02-06] MEDS ORDERED: THIAMINE 100 MG/ML 2 ML VIAL IM STA (19:31)
[2018-02-06] MEDS ORDERED: LORazepam 2 MG/ML INJ IV PRN ×3 (19:31)
[2018-02-06 19:37] LABS: Appearance,Urine Clear (Clear); Bilirubin,Urine Negative (Negative); Blood,Urine Negative (Negative); Color,Urine Yellow; Glucose,Urine (UA) Negative (Negative); Ketones,Urine Negative (Negative); Leukocyte Esterase,Urine Negative (Negative); Nitrite,Urine Negative (Negative); PH, Urine 7.5 (5.0-8.0); Protein,Urine Negative (Negative); Specific Gravity,Urine 1.006 (1.001-1.035)
[2018-02-06 19:57] LABS: Amphetamine Screen,Urine Not Detected (NotDetected); Barbiturate Screen,Urine Not Detected (NotDetected); Benzodiazepines Screen,Urine Not Detected (NotDetected); Cocaine Screen,Urine Not Detected (NotDetected); Methadone Screen, Urine Not Detected (NotDetected); Opiate Screen,Urine Not Detected (NotDetected); Oxycodone Screen, Urine Not Detected (NotDetected); Phencyclidine Screen,Urine Not Detected (NotDetected); Tricyclic Antidepressant,Urine Not Detected (NotDetected); Urn Cannabinoid Scrn Not Detected (NotDetected)
--- NOTE | 2018-02-06 20:28 | P.HPIM ---
History of Present Illness H&P Date: 02/06/18 Chief Complaint: Rectal pain, dark stools, weakness and fatigue The patient is a 57-year-old male with a past medical history of metastatic colon adenocarcinoma with metastasis to liver and lung who is post 11 cycles of chemotherapy with FOLFOX and Avastin who presents to the ER with chief complaint of moderate rectal pain, dark melanotic stools, increasing fatigue and weakness, decreased appetite, nausea with subjective fevers chills or night sweats. Apparently the patient was noted to have a tonic-clonic seizure while in triage that apparently lasted less than a minute, the patient was noted to be post ictal but is not able to answer questions. He denies any chest pain or shortness of breath, he reports intermittent bouts of diarrhea. Also reports he's been on chemotherapy and last took his medications 2 weeks ago. Patient is followed by Dr. Jimenez who is his oncologist. 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 In the ER the patient had a comprehensive workup CT of the head was negative for any acute intracranial pathology, only mild diffuse age-related cortical atrophy. Noted abnormal labs WBC count 12.7, hemoglobin and hematocrit 9.9 and 30.4 respectively, platelets 141. INR 3. Sodium 131, Potassium 2.7. Lactic acidosis of 14.8, AST 204, alk phos 1048. hemeoccult positive, Patient was noted to be tachycardic, febrile with T-max 100.9 Past Medical History Past Medical History: Cancer, COPD, Hyperlipidemia, Hypertension, Pneumonia Additional Past Medical History / Comment(s): Arthritis. colon cancer dx 04/19 received 12 treatments of chemo. has port rt upper chest History of Any Multi-Drug Resistant Organisms: None Reported Past Surgical History: Tonsillectomy Additional Past Surgical History / Comment(s): Colonoscopy 2018 Past Anesthesia/Blood Transfusion Reactions: No Reported Reaction Past Psychological History: No Psychological Hx Reported Smoking Status: Former smoker - Past Family History Sister(s) Family Medical History: Cancer Additional Family Medical History / Comment(s): Sister Breast Ca Medications and Allergies Home Medications Medication Instructions Recorded Confirmed Type HYDROcodone/APAP 5-325MG [[place] 1 tab PO Q6H PRN 10/05/17 02/06/18 History 5-325] amLODIPine [Norvasc] 10 mg PO HS 11/13/17 02/06/18 History Albuterol Inhaler [Ventolin Hfa 1 - 2 puff INHALATION RT-Q6H PRN 12/24/17 History Inhaler] Acetaminophen [Tylenol] 650 mg PO Q4H PRN 02/06/18 02/06/18 History Allergies Allergy/AdvReac Type Severity Reaction Status Date / Time No Known Allergies Allergy Verified 02/06/18 18:04 Physical Exam Vitals: Vital Signs Temp Pulse Resp BP Pulse Ox 02/06/18 19:06 99.0 F 108 H 18 144/87 96 02/06/18 17:46 118 H 18 139/79 97 02/06/18 17:04 100.9 F H 133 H 18 198/79 97 Intake and Output 02/06/18 02/06/18 02/06/18 06:59 14:59 22:59 Other: Weight 58.967 kg Constitutional: No acute distress, conversant, pleasant Eyes: Anicteric sclerae, moist conjunctiva, no lid-lag, PERRLA ENMT: NC/AT,Oropharynx clear, no erythema, exudates, white plaque on tongue likely thrush Neck:Supple, FROM, no masses, or JVD, No carotid bruits; No thyromegaly Lungs: Clear to auscultation, Clear to percussion, Normal respiratory effort, no accessory muscle use Cardiovascular: Heart regular in rate and rhythm, No murmurs, gallops, or rubs no peripheral edema Abdominal: Soft Nontender, nom distended, no guarding, no rebound or rigidity, Normoactive bowel sounds No hepatomegaly, No splenomegaly, No palpable mass No abdominal wall hernia noted Skin: Normal temperature, tone, texture, turgor, No induration No subcutaneous nodules, No rash, lesions, No ulcers Extremities:No digital cyanosis No clubbing, Pedal pulses intact and symmetrical Radial pulses intact and symmetrical Normal gait and station, No calf tenderness, brisk capillary refill Psychiatric: Alert and oriented to person, place and time, Appropriate affect Intact judgement Neuro: Muscles Strength 5/5 in all 4 extremities, Sensation to light touch grossly present throughout, Cranial nerves II-XII grossly intact. No focal sensory deficits Results CBC & Chem 7: 02/06/18 17:25 02/06/18 17:25 Labs: Abnormal Lab Results - Last 24 Hours (Table) 02/06/18 02/06/18 02/06/18 Range/Units 17:25 17:25 17:25 WBC 12.7 H (3.8-10.6) k/uL RBC 2.86 L (4.30-5.90) m/uL Hgb 9.9 L (13.0-17.5) gm/dL Hct 30.4 L (39.0-53.0) % MCV 106.3 H D (80.0-100.0) fL RDW 15.6 H (11.5-15.5) % Plt Count 141 L (150-450) k/uL Neutrophils # 10.2 H (1.3-7.7) k/uL Lymphocytes # 0.9 L (1.0-4.8) k/uL PT (9.0-12.0) sec INR (<1.2) APTT (22.0-30.0) sec Sodium 131 L (137-145) mmol/L Potassium 2.7 L* (3.5-5.1) mmol/L Chloride 89 L (98-107) mmol/L Carbon Dioxide 17 L (22-30) mmol/L BUN 7 L (9-20) mg/dL Creatinine 0.44 L (0.66-1.25) mg/dL Glucose 144 H (74-99) mg/dL Plasma Lactic Acid To 14.8 H* (0.7-2.0) mmol/L AST 204 H (17-59) U/L Alkaline Phosphatase 1048 H (38-126) U/L Albumin 3.3 L (3.5-5.0) g/dL 02/06/18 Range/Units 17:25 WBC (3.8-10.6) k/uL RBC (4.30-5.90) m/uL Hgb (13.0-17.5) gm/dL Hct (39.0-53.0) % MCV (80.0-100.0) fL RDW (11.5-15.5) % Plt Count (150-450) k/uL Neutrophils # (1.3-7.7) k/uL Lymphocytes # (1.0-4.8) k/uL PT 27.1 H (9.0-12.0) sec INR 3.0 H (<1.2) APTT >200.0 H* (22.0-30.0) sec Sodium (137-145) mmol/L Potassium (3.5-5.1) mmol/L Chloride (98-107) mmol/L Carbon Dioxide (22-30) mmol/L BUN (9-20) mg/dL Creatinine (0.66-1.25) mg/dL Glucose (74-99) mg/dL Plasma Lactic Acid To (0.7-2.0) mmol/L AST (17-59) U/L Alkaline Phosphatase (38-126) U/L Albumin (3.5-5.0) g/dL Assessment and Plan (1) Lower GI hemorrhage Current Visit: Yes Status: Acute Code(s): K92.2 - GASTROINTESTINAL HEMORRHAGE, UNSPECIFIED SNOMED Code(s): 48619516 (2) Seizure Current Visit: Yes Status: Acute Code(s): R56.9 - UNSPECIFIED CONVULSIONS SNOMED Code(s): 41322467 (3) Sepsis Current Visit: Yes Status: Acute Code(s): A41.9 - SEPSIS, UNSPECIFIED ORGANISM SNOMED Code(s): 88249172 (4) Hypokalemia Current Visit: No Status: Acute Code(s): E87.6 - HYPOKALEMIA SNOMED Code(s ): 01040745 (5) Hyponatremia Current Visit: No Status: Acute Code(s): E87.1 - HYPO-OSMOLALITY AND HYPONATREMIA SNOMED Code(s): 57297247 (6) Coagulopathy Current Visit: Yes Status: Acute Code(s): D68.9 - COAGULATION DEFECT, UNSPECIFIED SNOMED Code(s): 32101981 (7) Lactic acidosis Current Visit: Yes Status: Acute Code(s): E87.2 - ACIDOSIS SNOMED Code(s) : 62945163 (8) Metastatic colon cancer to liver Current Visit: No Status: Acute Priority: High Code(s): C18.9 - MALIGNANT NEOPLASM OF COLON, UNSPECIFIED; C78.7 - SECONDARY MALIG NEOPLASM OF LIVER AND INTRAHEPATIC BILE DUCT SNOMED Code(s): 477668967 (9) Thrush Current Visit: Yes Status: Acute Code(s): B37.0 - CANDIDAL STOMATITIS SNOMED Code(s): 31063991 (10) Pancytopenia Current Visit: Yes Status: Acute Code(s): D61.818 - OTHER PANCYTOPENIA SNOMED Code(s): 705199425 (11) H/O ETOH abuse Current Visit: Yes Status: Acute Code(s): Z87.898 - PERSONAL HISTORY OF OTHER SPECIFIED CONDITIONS SNOMED Code(s): 593626377 Plan: The patient is admitted to the medical floor anticipated greater than 2 midnight stay with multiple comorbidities including concern for GI bleed hemoglobin at 9.9 with positive Hemoccult, multiple electrolyte abnormalities including hypokalemia and hyponatremia, metabolic acidosis all likely from dehydration and poor oral intake due to ongoing chemotherapy for his colonic adenocarcinoma with metastasis to liver and lung. The patient is also noted to be pancytopenic, afebrile, tachycardic concern for sepsis, urinalysis negative, blood cultures pending, chest x-ray and abdominal x-ray negative for any infectious etiology. Will obtain CT abdomen and pelvis ANd C diff AND nitiate patient on Rocephin and maintenance fluids consult ID for further recommendations. GI, nephrology, neurology, oncology also consulted. Replace electrolytes as needed. The patient will likely had seizure that was metabolic in etiology due to nodular abnormalities versus alcohol withdrawal, continue on CIWA protocol. Follow-up neurology recommendations. Continue to follow patient 's clinical course CODE STATUS Full code Discussed plan of care with : Patient DVT prophylaxis: Pharmacologically Contraindicated concern for GI bleed, on SCDs Anticipated discharge: 2-5 days
[2018-02-06] MEDS ORDERED: Potassium Replacement Protocol 1 EACH MISC MISCELLANE PRN (20:32)
[2018-02-06] MEDS ORDERED: SODIUM CHLORIDE 0.9% 1,000 ML IV ONE (20:34)
[2018-02-06] MEDS: ACETAMINOPHEN TAB 325 MG TAB PO PRN (20:43)
[2018-02-06 20:44] LABS: INR 1.3 (<1.2); Partial Thromboplastin Time 27.6 sec (22.0-30.0); Prothrombin Time 12.1 sec (9.0-12.0)
[2018-02-06] MEDS: SODIUM CHLORIDE 0.9% 1,000 ML IV SCH (20:50)
[2018-02-06] MEDS: NYSTATIN 100,000 UNIT/ML SUSP 500,000 UNIT/5 ML CUP PO SCH (21:33)
[2018-02-06] MEDS: HYDROcodone/APAP 5-325MG 1 EACH TAB PO PRN (21:56)
--- NOTE | 2018-02-06 22:47 | CT ---
EXAMINATION TYPE: CT abdomen pelvis wo con DATE OF EXAM: 02/06/2018 COMPARISON: PET/CT scan 05/02/2017 HISTORY: Rectal pain, GI bleed. CT DLP: 286.4 mGycm Automated exposure control for dose reduction was used. TECHNIQUE: Helical acquisition of images was performed from the lung bases through the pelvis. FINDINGS: There is a 1 cm noncalcified nodule in the right lower lobe posteriorly. There is similar nodule in t he left lower lobe posteriorly. There are a few other noncalcified smaller lower lobe pulmonary nodul es. There is no pleural effusion. Heart size is normal. There is no pericardial effusion. There are numerous partly calcified masses throughout the liver. Spleen appears normal. There is no p ancreatic mass. Gallbladder appears normal. Bile ducts are not dilated. There is no adrenal mass. Kidneys have normal size and contour. There is no hydronephrosis. Ureters a re not dilated. There is no evidence of ureteral calculus. Bladder distends smoothly. I see no pelvic mass. There is a 10 cm segment of wall thickening involving the rectum and distal sigmoid colon. The lumen is obscured. There is no free fluid in the pelvis. There is no ascites. There is no sign of fr ee air. There is no retroperitoneal adenopathy. There is no mesenteric adenopathy or edema. Appendix appears slightly thickened but no surrounding inflammatory changes. Appendix measures 8 mm. Appendix appears unchanged. There is no inguinal hernia or adenopathy. There is retained fecal material in the entire colon. The bony structures appear intact. IMPRESSION: RECTAL MASS MEASURES APPROXIMATELY 10 X 4.5 CM AND IS CONSISTENT WITH TUMOR THAT HAS PROGRESSED FRANCISCO JAVIER RED TO OLD CT SCAN OF 05/02/2017. THERE IS RETAINED FECAL MATERIAL IN THE LARGE BOWEL THAT SUGGEST SO ME DEGREE OF BOWEL OBSTRUCTION. MULTIPLE CALCIFIC DENSITIES THROUGHOUT THE LIVER CONSISTENT WITH METASTATIC DISEASE SIMILAR TO OLD CT SCAN. MULTIPLE PULMONARY NONCALCIFIED NODULES CONSISTENT WITH METASTATIC DISEASE SIMILAR TO OLD CT S CAN.
[2018-02-06 23:31] LABS: Basophils % (A) 0 %; Eosinophils % (A) 0 %; HCT 30.1 % (39.0-53.0); Lymphocytes # (A) 0.8 k/uL (1.0-4.8); Lymphocytes % (A) 8 %; MCH 34.2 pg (25.0-35.0); MCHC 33.2 g/dL (31.0-37.0); MCV 102.9 fL (80.0-100.0); Macrocytosis Slight; Mean Platelet Volume 7.7; Monocytes # (A) 0.7 k/uL (0-1.0); Monocytes % (A) 8 %; Neutrophils # (A) 7.8 k/uL (1.3-7.7); Neutrophils % (A) 82 %; RBC 2.93 m/uL (4.30-5.90); RDW 15.6 % (11.5-15.5); WBC 9.6 k/uL (3.8-10.6)
--- NOTE | 2018-02-06 23:38 | P.CNNES ---
History of Present Illness Consult date: 02/06/18 Reason for Consult: Patient admitted for new onset seizure and rectal cancer. History of Present Illness: This patient is a 57-year-old right-handed white male who was brought into the emergency room at [facility] today for evaluation of rectal bleeding. Patient has a past medical history of metastatic colon adenocarcinoma with metastatic lesions to the liver and lung. He has been followed in the oncology clinic by Dr. Cancino. He has undergone 11 cycles of chemotherapy with FOLFOX and AVASTIN. His last cycle of chemotherapy was not too long ago. Apparently he was told that he may experience some lethargy and weakness due to the extensive amount of chemotherapy that he has completed. Apparently at home he was feeling increased symptoms of fatigue and generalized weakness. He was brought into the emergency room at [facility] today for further evaluation as he states he was feeling too weak to move around at home. He was able to call a tab and was brought into the ER today for evaluation. He was seen in the ER by Dr. Florentino who ordered a computed tomography scan of the brain. CAT scan done today revealed no acute intracranial process. There was mild diffuse age-related cerebral atrophy noted. The patient was in the triage area in the ER and apparently had a witnessed tonic-clonic seizure that lasted 1-2 minutes in duration. He did have loss of bowel control. He was postictal following the seizure event for short. Dr. andujar. As noted the patient has moderate degree of rectal pain and dark melanotic stools prior to his admission to the ER. His hemoglobin in the ER was 9.9 with a hematocrit of 30.4. His platelet count was 141. He denied any recent history of bleeding. The patient denies any previous history of seizures other than one seizure event over 20 years ago. Apparently this was a symptomatic seizure due to severe hypoglycemia and dehydration. As noted the patient does have metastatic colon cancer. We have raised the question of possible metastatic lesion to the brain. We recommend patient undergo MRI of the brain with and without gadolinium for further evaluation. We will hold off on starting him on any specific anticonvulsant medication pending his workup to include MRI of the brain and routine EEG. The patient will be closely monitored with seizure precautions. If he were to have any further seizure events we will be loading him with IV levetiracetam if needed. The patient states there is a strong family history of cancer. Sr. has diagnosis of breast cancer. He does have a history of alcohol use in the past and it was of some concern whether this may be alcohol withdrawal syndrome. He was started on a CIWA protocol by his admitting physician and we will have to continue close monitoring. The patient denies any severe headache pain symptoms at this time. Workup for lower GI hemorrhage is in process. His overall prognosis at this time remains very guarded. Case was discussed at length today with the patient at bedside. All of his questions were answered. Neurology is now been consulted for further evaluation and recommendations. Review of Systems Constitutional: Denies chills, Denies fever Eyes: denies blurred vision, denies pain Ears, nose, mouth and throat: Denies headache, Denies sore throat Cardiovascular: Denies chest pain, Denies shortness of breath Respiratory: Denies cough Gastrointestinal: Denies abdominal pain, Denies diarrhea, Denies nausea, Denies vomiting Musculoskeletal: Denies myalgias Integumentary: Denies pruritus, Denies rash Neurological: Reports change in mentation, Reports convulsions, Reports seizures , Denies numbness, Denies weakness Psychiatric: Denies anxiety, Denies depression Endocrine: Denies fatigue, Denies weight change Past Medical History Past Medical History: Cancer, COPD, Hyperlipidemia, Hypertension, Pneumonia Additional Past Medical History / Comment(s): Arthritis. colon cancer dx 04/19 received 12 treatments of chemo. has port rt upper chest History of Any Multi-Drug Resistant Organisms: None Reported Past Surgical History: Tonsillectomy Additional Past Surgical History / Comment(s): Colonoscopy 2018 Past Anesthesia/Blood Transfusion Reactions: No Reported Reaction Past Psychological History: No Psychological Hx Reported Smoking Status: Former smoker - Past Family History Sister(s) Family Medical History: Cancer Additional Family Medical History / Comment(s): Sister Breast Ca Medications and Allergies Home Medications Medication Instructions Recorded Confirmed Type HYDROcodone/APAP 5-325MG [[place] 1 tab PO Q6H PRN 10/05/17 02/06/18 History 5-325] amLODIPine [Norvasc] 10 mg PO HS 11/13/17 02/06/18 History Albuterol Inhaler [Ventolin Hfa 1 - 2 puff INHALATION RT-Q6H PRN 12/24/17 History Inhaler] Acetaminophen [Tylenol] 650 mg PO Q4H PRN 10/06/18 10/06/18 History Allergies Allergy/AdvReac Type Severity Reaction Status Date / Time No Known Allergies Allergy Verified 02/06/18 18:04 Physical Examination - Vital Signs Vital Signs: Vital Signs Temp Pulse Pulse Resp BP BP Pulse Ox 02/06/18 20:47 99.2 F 101 H 16 121/84 98 02/06/18 20:34 99.0 F 94 16 148/78 98 02/06/18 19:06 99.0 F 108 H 18 144/87 96 02/06/18 17:46 118 H 18 139/79 97 02/06/18 17:04 100.9 F H 133 H 18 198/79 97 Intake and Output 02/06/18 02/06/18 02/07/18 14:59 22:59 06:59 Other: Weight 58.6 kg - Constitutional General appearance: average body habitus, cooperative - EENT EENT: PERRL, mucous membranes moist - Respiratory Respiratory: lungs clear, normal breath sounds - Cardiovascular Cardiovascular: regular rate, normal S1, normal S2 Extremities: no peripheral edema bilaterally - Gastrointestinal Gastrointestinal: normoactive bowel sounds - Integumentary Integumentary: normal - Neurologic Cranial nerve examination: PERRL, EOMI, VFF, V1/V2/V3 grossly intact, face symmetric, tongue midline, intact gag reflex, intact corneal reflex, normal palatal elevation Speech examination: intact Sensorimotor examination: intact Motor examination - right side: 4/5: biceps, triceps, wrist flexion, wrist extension, boulevard glassware replacer, hip flexors, knee extensors, dorsiflexion, toe extension (EHL) , plantarflexion Motor examination - left side: 4/5: biceps, triceps, wrist flexion, wrist extension, boulevard glassware replacer, hip flexors, knee extensors, dorsiflexion, toe extension (EHL) , plantarflexion Detailed sensory examination: intact Reflex and gait examination: intact Reflexes: 1+: ankle, bicep, knee, tricep - Musculoskeletal Musculoskeletal: no pain - Psychiatric Psychiatric: mood/affect appropriate, cooperative Results - Laboratory Findings CBC and BMP: 02/06/18 17:25 02/06/18 17:25 Abnormal Lab Findings: Abnormal Labs 02/06/18 02/06/18 02/06/18 17:25 17:25 17:25 WBC 12.7 H RBC 2.86 L Hgb 9.9 L Hct 30.4 L MCV 106.3 H D RDW 15.6 H Plt Count 141 L Neutrophils # 10.2 H Lymphocytes # 0.9 L PT INR APTT Sodium 131 L Potassium 2.7 L* Chloride 89 L Carbon Dioxide 17 L BUN 7 L Creatinine 0.44 L Glucose 144 H Plasma Lactic Acid To 14.8 H* AST 204 H Alkaline Phosphatase 1048 H Albumin 3.3 L 02/06/18 02/06/18 17:25 20:05 WBC RBC Hgb Hct MCV RDW Plt Count Neutrophils # Lymphocytes # PT 27.1 H 12.1 H INR 3.0 H 1.3 H APTT >200.0 H* Sodium Potassium Chloride Carbon Dioxide BUN Creatinine Glucose Plasma Lactic Acid To AST Alkaline Phosphatase Albumin Assessment and Plan (1) New onset seizure Current Visit: Yes Status: Acute Code(s): R56.9 - UNSPECIFIED CONVULSIONS SNOMED Code(s): 96797596 (2) Metastatic colon cancer to liver Current Visit: Yes Status: Acute Code(s): C18.9 - MALIGNANT NEOPLASM OF COLON, UNSPECIFIED; C78.7 - SECONDARY MALIG NEOPLASM OF LIVER AND INTRAHEPATIC BILE DUCT SNOMED Code(s): 472870806 (3) Lower GI hemorrhage Current Visit: Yes Status: Acute Code(s): K92.2 - GASTROINTESTINAL HEMORRHAGE, UNSPECIFIED SNOMED Code(s): 41866761 (4) Thrush Current Visit: Yes Status: Acute Code(s): B37.0 - CANDIDAL STOMATITIS SNOMED Code(s): 19410540 Plan: This patient is a 57-year-old right-handed white male who was admitted to hospital with rectal pain and rectal bleeding. Patient also had multiple electrolyte abnormalities on evaluation in the emergency room. Patient was in the triage area of the ER sitting in a wheelchair when he had a witnessed seizure event. The seizure lasted 1-2 minutes in duration. He was postictal following this event. He was given some Ativan in the ER and admitted to the hospital. Patient is a poor historian but states he has been having symptoms of seizure-like events off-and-on with no clear etiology. The patient was seen in the ER by Dr. Florentino. A computed tomography scan of the brain as noted was ordered and came back negative for any acute findings of stroke or hemorrhage. Patient states he did have 1 seizure in his lifetime about 20 years ago which is possibly due to severe hypoglycemia and dehydration. At this time his neurological examination is nonfocal. We have recommended he undergo an MRI of the brain with and without gadolinium to rule out metastatic lesion to the brain. We will await further recommendations from multiple specialists evaluating the patient during this admission. We have discussed all of our findings today in detail with the patient. All of his questions are answered. We will continue close neurological follow-up with this patient in the intensive care unit. Time with Patient: Greater than 30
[2018-02-07 00:30] LABS: Platelet Count 93 k/uL (150-450)
[2018-02-07] MEDS: HYDROcodone/APAP 5-325MG 1 EACH TAB PO PRN ×3 (01:04→09:21)
[2018-02-07] MEDS: SODIUM CHLORIDE 0.9% 1,000 ML IV SCH ×3 (06:37→22:30)
[2018-02-07 06:39] LABS: Basophils % (A) 0 %; Eosinophils # (A) 0.1 k/uL (0-0.7); Eosinophils % (A) 1 %; HGB 9.5 gm/dL (13.0-17.5); Lymphocytes # (A) 0.8 k/uL (1.0-4.8); Lymphocytes % (A) 10 %; MCH 35.4 pg (25.0-35.0); MCHC 33.8 g/dL (31.0-37.0); MCV 104.6 fL (80.0-100.0); Macrocytosis Moderate; Mean Platelet Volume 7.8; Monocytes # (A) 0.5 k/uL (0-1.0); Monocytes % (A) 7 %; Neutrophils # (A) 6.1 k/uL (1.3-7.7); Neutrophils % (A) 80 %; RBC 2.68 m/uL (4.30-5.90); RDW 15.6 % (11.5-15.5); WBC 7.6 k/uL (3.8-10.6)
[2018-02-07 06:51] LABS: Anion Gap 6 mmol/L; Blood Urea Nitrogen 3 mg/dL (9-20); Calcium 7.7 mg/dL (8.4-10.2); Carbon Dioxide 27 mmol/L (22-30); Chloride 101 mmol/L (98-107); Glucose 75 mg/dL (74-99); Magnesium 1.8 mg/dL (1.6-2.3); Potassium 2.9 mmol/L (3.5-5.1); Sodium 134 mmol/L (137-145)
[2018-02-07 07:02] LABS: Platelet Count 87 k/uL (150-450)
[2018-02-07] MEDS: NYSTATIN 100,000 UNIT/ML SUSP 500,000 UNIT/5 ML CUP PO SCH ×4 (09:04→20:15)
[2018-02-07] MEDS: PANTOPRAZOLE 40 MG/10 ML VIAL IV SCH (09:05)
[2018-02-07] MEDS ORDERED: BISACODYL 5 MG TABLET.DR PO STA (10:26)
[2018-02-07] MEDS ORDERED: POTASSIUM CHLORIDE ER 20 MEQ TAB.ER PO STA (10:45)
--- NOTE | 2018-02-07 10:46 | CONS ---
CONSULTATION DATE OF SERVICE: February 07, 2018. REQUESTING PHYSICIAN: Dr. Cancino and Ángel Herbert. REASON FOR CONSULTATION: Rectal bleeding and rectal pain. HISTORY OF PRESENT ILLNESS: The patient is a 57-year-old pleasant white male who was diagnosed with metastatic rectal cancer in April of 2017 with liver and lung metastasis, who is presently under the care of Dr. Cancino and undergone 11 cycles of chemotherapy. Approximately 6 weeks ago on December 29, 2017, he had a flexible sigmoidoscopy done by Dr. Culp, he was noted to have a circumferential ulcerated mass in the mid rectum extending from 10- 15 cm from the anal verge with near-complete obstruction. The patient, at that time, was changed to oral pill of chemotherapy which he has been taking for the last 6 weeks. He was admitted to the hospital because he was having nausea, vomiting, not feeling well with intermittent rectal bleeding and rectal discomfort and hence we were consulted in regards to this issue. The patient states that he usually has about 5-6 bowel movements daily some of them have a small amount of dark colored blood and some of them are brown in color. He has constant feeling of rectal discomfort, rectal fullness and rectal urgency. His symptoms have not significantly changed over the last several months. He complains of crampy left lower quadrant abdominal pain, but since being in the hospital, the nausea vomiting has completely resolved. PAST MEDICAL HISTORY: Significant for alcohol abuse, hypertension, hyperlipidemia. PAST SURGICAL HISTORY: Tonsillectomy, colonoscopy April of 2017, flexible sigmoidoscopy December of 2017. MEDICATIONS AT HOME: Include Joppa, Norvasc, Ventolin, Tylenol, and oral chemo pill. ALLERGIES: None. SOCIAL HISTORY: Chronic alcohol use and former smoker. FAMILY HISTORY: Sister has breast cancer. REVIEW OF SYSTEMS: Cardiopulmonary: No chest pain, shortness of breath. Genitourinary: No dysuria or hematuria. Musculoskeletal unremarkable. Skin unremarkable. Endocrine unremarkable. Psychiatric unremarkable. Neurology unremarkable. ENT vision unremarkable. Constitutional: No recent weight loss. No fever, chills, night sweats. PHYSICAL EXAMINATION: Blood pressure is 131/79, pulse rate 98, temperature 98.6. HEENT examination unremarkable. Conjunctivae pink. Sclerae anicteric. Oral cavity no lesions. Neck: No jugular venous distention or lymph node enlargement. Chest was clear to auscultation. HEART: Regular rate and rhythm. ABDOMEN: Soft. There was mild tenderness diffusely, more in the left lower quadrant area. Extremities: No pedal edema. Skin no rashes. Neuro: He is alert and oriented x3. No focal deficits. LABS: WBC 9.6, hemoglobin 10, today hemoglobin is 9.5, platelets are 93,000. Sodium 131, potassium 2.7, chloride 89, CO2 17, BUN 25, creatinine 0.4. AST 204, ALT 45, alkaline phosphatase 1048. The patient did have a CT of the abdomen and pelvis done yesterday in the emergency room, which showed rectal mass measuring approximately 10 x 4.5 cm that has progressed compared to the CT scan in 04/2017. There was retained fecal material in the large bowel suggestive of bowel obstruction. Multiple densities throughout the liver consistent with metastatic disease. IMPRESSION: 1. Metastatic rectal cancer diagnosed in April of 2017, status post 11 cycles of chemotherapy followed by oral chemo that was started 6 weeks ago. Last flexible sigmoidoscopy done by Dr. Culp done on December 29, 2017 showed a circumferential ulcerated near obstructing mass in the mid to proximal rectum. CT of the abdomen done yesterday once again showed a large tumor in the rectum with proximal slight colonic dilation with large amount of retained stool suggestive of partial obstruction. 2. Rectal discomfort, rectal pain, rectal bleeding all related to rectal mass. RECOMMENDATIONS: I had a lengthy discussion with the patient regarding management of symptoms. At this time, since he continues to have ongoing symptoms of rectal pain and rectal discomfort with incomplete evacuation of stool all related to partial obstruction related to the rectal mass, he may be a candidate for a flexible sigmoidoscopy with stent placement to relieve the obstruction rather than a colostomy. I will discuss this with Dr. Cancino and further plans will be made. For now, continue with symptomatic and supportive care. Thank you for this consultation. MMODL / IJN: [id number] /
--- NOTE | 2018-02-07 11:31 | CONS ---
CONSULTATION REASON FOR CONSULT: Hypokalemia. HISTORY OF PRESENT ILLNESS: The patient is a 57-year-old white male with history of colon cancer with liver METS, status post chemotherapy recently about a few weeks ago. The patient was admitted to the hospital with increased weakness. He was found to have a potassium of 2.7 mEq/L. Previous potassium was about 3.8-4.7, however, we did have a low potassium in November of 2.9 and 3.2 mEq/L. At home, patient is not on any diuretics. He states that he had not been eating much. He was also vomiting and had some diarrhea prior to admission. Serum creatinine 0.4 mg/dL. The patient also has underlying hypertension and he states that his blood pressure usually is significantly uncontrolled if he misses his usual dose, he takes amlodipine 10 mg at home. PAST MEDICAL HISTORY: Colon cancer with a history of liver METS per patient, hyperlipidemia, COPD, hypertension, pneumonia, osteoarthritis. PAST SURGICAL HISTORY: Colonoscopy, tonsillectomy. SOCIAL HISTORY: The patient is a former smoker. No history of drug abuse or alcohol abuse. MEDICATIONS: Include Vicodin, Norvasc, Tylenol. ALLERGIES: None. EXAMINATION: Patient is currently comfortable, awake, alert, oriented x3. He is not in any acute distress. Blood pressure was 144/80, heart rate 95 per minute. He is afebrile. Examination of the heart S1, S2. Examination of the lungs bilateral breath sounds are heard. Abdomen is soft, nontender. Examination lower extremities shows no significant edema. [employer] exam is grossly intact. LAB: Show sodium 134, potassium 2.9, chloride 101, BUN 3, serum creatinine 0.4, hemoglobin 9.5 g/dL. ASSESSMENT: 1. Hypokalemia associated with decreased intake and increase loss from the gastrointestinal. We need to also rule out a renal potassium wasting in view of recent rounds of chemotherapy. I will replace potassium aggressively. The magnesium is not low. A random urine potassium and sodium will be ordered as well. Given his history of hypertension and previous history of hypokalemia, I will order a renal and aldosterone level as well. Once this is drawn, we can add Aldactone to help with the hypokalemia if it persists. 2. History of colon cancer, status post recent chemotherapy. 3. Anemia, multifactorial. No evidence of active bleeding noted at this time. We can check iron studies. PLAN: Replace potassium orally. Check random urine potassium and sodium and check renal aldosterone level. We can add Aldactone once these levels are drawn if the patient remains hypokalemic. Thank you for this consultation. We will continue to follow the patient with you during his hospitalization. MABEL / EYAD: [id number] /
[2018-02-07] MEDS: DOCUSATE 100 MG CAP PO SCH ×2 (11:37→20:15)
[2018-02-07] MEDS: THIAMINE 100 MG TAB PO SCH ×2 (11:38→17:16)
--- NOTE | 2018-02-07 12:06 | P.PN ---
Subjective Progress Note Date: 02/07/18 Patient is a 57-year-old male with PMH of stage IV colon CA with metastases to liver and lungs status post 11 cycles of chemotherapy who presented to the ED for rectal pain, black stools, fatigue, anorexia, and subjective fever and chills. Patient also had a tonic-clonic seizure while in the ED lasting less than a minute. In the ED, CT head was negative for acute abnormalities, with WBC 12.7, hemoglobin 9.9, sodium 131, potassium 2.7, and Hemoccult positive stools and a low-grade fever at 100.9 with tachycardia to 133. Abdomen and pelvis computed tomography scan with contrast was done and showed progressive rectal mass with retained stools suggestive of partial obstruction and with multiple lesions in the lung and liver consistent with metastatic disease stable from prior studies. The patient was started on IV antibiotics pending infectious disease consult. GI was consulted and recommended consideration for flexible sigmoidoscopy with stent placement to relieve obstruction due to enlarging rectal mass. Neurology was consulted and recommended MRI of brain with and without contrast to rule out metastatic lesions to the brain in the setting of seizure. Patient was seen and examined at the bedside. He continues to feel fatigued with lightheadedness upon standing. He also complained of continued rectal pain not relieved by Blomkest 5, and constipation with only small pellets of stool passed at any time. He however denied fever, chills, cough, chest pain, dysuria , headaches, nausea, or vomiting. Objective - Vital Signs Vital signs: Vital Signs Temp 98.4 F 02/07/18 08:00 Pulse 95 02/07/18 08:00 Resp 18 02/07/18 08:00 BP 144/80 02/07/18 08:00 Pulse Ox 98 02/07/18 08:00 Intake & Output 02/06/18 02/07/18 02/07/18 18:59 06:59 18:59 Intake Total 120 Balance 120 Weight 58.967 kg 59.4 kg Intake: Oral 120 Other: Voiding Method Toilet Toilet # Voids 2 - Exam General: Non-toxic, in no acute distress HEENT: NC/AT, anicteric sclerae, moist conjunctiva, no lid-lag, PERRLA, oropharynx clear, no erythema, exudates, EOMI Cardiovascular: S1/S2 wnl, no murmurs, rubs, or gallops Lungs: Clear to auscultation, normal respiratory effort, no accessory muscle use Abdominal: Mildly distended, non-tender, no guarding or rebound, normoactive bowel sounds Skin: Warm, dry Extremities: Warm, dry Psychiatric: Alert and oriented to person, place and time, appropriate affect, Intact judgment Neuro: CN II-XII grossly intact, no focal motor deficits, strength 4/5 throughout, sensation grossly intact throughout - Labs CBC & Chem 7: 02/07/18 06:10 02/07/18 06:10 Labs: Abnormal Lab Results - Last 24 Hours (Table) 02/06/18 02/06/18 02/06/18 Range/Units 17:25 17:25 17:25 WBC 12.7 H (3.8-10.6) k/uL RBC 2.86 L (4.30-5.90) m/uL Hgb 9.9 L (13.0-17.5) gm/dL Hct 30.4 L (39.0-53.0) % MCV 106.3 H D (80.0-100.0) fL MCH (25.0-35.0) pg RDW 15.6 H (11.5-15.5) % Plt Count 141 L (150-450) k/uL Neutrophils # 10.2 H (1.3-7.7) k/uL Lymphocytes # 0.9 L (1.0-4.8) k/uL PT (9.0-12.0) sec INR (<1.2) APTT (22.0-30.0) sec Sodium 131 L (137-145) mmol/L Potassium 2.7 L* (3.5-5.1) mmol/L Chloride 89 L (98-107) mmol/L Carbon Dioxide 17 L (22-30) mmol/L BUN 7 L (9-20) mg/dL Creatinine 0.44 L (0.66-1.25) mg/dL Glucose 144 H (74-99) mg/dL Plasma Lactic Acid To 14.8 H* (0.7-2.0) mmol/L Calcium (8.4-10.2) mg/dL AST 204 H (17-59) U/L Alkaline Phosphatase 1048 H (38-126) U/L Albumin 3.3 L (3.5-5.0) g/dL 02/06/18 02/06/18 02/06/18 Range/Units 17:25 20:05 22:52 WBC (3.8-10.6) k/uL RBC 2.93 L (4.30-5.90) m/uL Hgb 10.0 L (13.0-17.5) gm/dL Hct 30.1 L (39.0-53.0) % MCV 102.9 H (80.0-100.0) fL MCH (25.0-35.0) pg RDW 15.6 H (11.5-15.5) % Plt Count 93 L (150-450) k/uL Neutrophils # 7.8 H (1.3-7.7) k/uL Lymphocytes # 0.8 L (1.0-4.8) k/uL PT 27.1 H 12.1 H (9.0-12.0) sec INR 3.0 H 1.3 H (<1.2) APTT >200.0 H* (22.0-30.0) sec Sodium (137-145) mmol/L Potassium (3.5-5.1) mmol/L Chloride (98-107) mmol/L Carbon Dioxide (22-30) mmol/L BUN (9-20) mg/dL Creatinine (0.66-1.25) mg/dL Glucose (74-99) mg/dL Plasma Lactic Acid To (0.7-2.0) mmol/L Calcium (8.4-10.2) mg/dL AST (17-59) U/L Alkaline Phosphatase (38-126) U/L Albumin (3.5-5.0) g/dL 02/07/18 02/07/18 Range/Units 06:10 06:10 WBC (3.8-10.6) k/uL RBC 2.68 L (4.30-5.90) m/uL Hgb 9.5 L (13.0-17.5) gm/dL Hct 28.0 L (39.0-53.0) % MCV 104.6 H (80.0-100.0) fL MCH 35.4 H (25.0-35.0) pg RDW 15.6 H (11.5-15.5) % Plt Count 87 L (150-450) k/uL Neutrophils # (1.3-7.7) k/uL Lymphocytes # 0.8 L (1.0-4.8) k/uL PT (9.0-12.0) sec INR (<1.2) APTT (22.0-30.0) sec Sodium 134 L (137-145) mmol/L Potassium 2.9 L (3.5-5.1) mmol/L Chloride (98-107) mmol/L Carbon Dioxide (22-30) mmol/L BUN 3 L (9-20) mg/dL Creatinine 0.41 L (0.66-1.25) mg/dL Glucose (74-99) mg/dL Plasma Lactic Acid To (0.7-2.0) mmol/L Calcium 7.7 L (8.4-10.2) mg/dL AST (17-59) U/L Alkaline Phosphatase (38-126) U/L Albumin (3.5-5.0) g/dL Microbiology - Last 24 Hours (Table) 02/06/18 19:05 Urine Culture - Preliminary Urine,Clean Catch Assessment and Plan Plan: Stage IV colon ca with mets to lung and liver, status post 11 cycles of chemo -Oncology consulted -Pain control with Blomkest 10 Single episode of tonic-clonic seizure -CT head unremarkable -Neurology consult appreciated -Will await MRI brain with and without contrast Sepsis -No sign of infection at this time -We'll continue with empiric ceftriaxone for now -Awaiting ID consult -Likely secondary to progressive malignancy -Continue with IV fluids 120 mL an hour Partial bowel obstruction -GI recs appreciated -Considering flexible sigmoidoscopy and stent placement to relieve obstruction -Continue with clear liquid diet Macrocytic anemia -We'll check iron and B12 and folate -Likely component of chronic gently for malignancy -GI recs appreciated Chemotherapy -Likely secondary to malignancy -We will do anemia workup Hypokalemia -We will replace accordingly DVT//GI prophylaxis -IPCDs -Protonix IV qd Discussed with: Patient Anticipated discharge date: 02/10/[address]: Home A total of 40 minutes was spent on the care of this complex patient more than 50 % of the time was spent in counseling and care coordination.
[2018-02-07] MEDS: HYDROcodone/APAP 10-325MG 1 EACH TAB PO PRN ×3 (14:01→23:58)
[2018-02-07] MEDS: POTASSIUM CHLORIDE ER 20 MEQ TAB.ER PO SCH ×2 (14:01→17:15)
[2018-02-07] MEDS: metroNIDAZOLE 500 MG TAB PO SCH ×2 (18:39→20:15)
--- NOTE | 2018-02-07 19:52 | CONS ---
CONSULTATION DATE OF CONSULTATION: 02/07/2018 REASON FOR CONSULTATION: Metastatic rectal carcinoma. CHIEF COMPLAINT: Rectal bleeding and tiredness. Olvin is a very pleasant 57 years old gentleman known to our practice. He has been under the care of Dr. Cancino. The patient was diagnosed with rectal carcinoma in April of 2017 when he presented with rectal bleeding and lower abdominal pain. He underwent a colonoscopy which confirmed the diagnosis and he was found to have a mass in the rectum and biopsy confirmed adenocarcinoma. Also the same time he on further staging workup revealed that he has evidence of multiple liver metastases and also he has lung nodules as well. The patient was started on systemic chemotherapy. His disease is MSI stable and KRAS mutated. The patient was started on systemic chemotherapy with initially with Avastin and FOLFOX regimen which was started on 06/01/2017 and he had a total of 11 cycles. The last treatment was provided on December 07, 2017. He did achieve improvement and he did have a followup CT scan on November 30, 2017 at [facility], which revealed possible local progression of his disease, but has stable disease in his liver and improvement in his lung nodules. Subsequently, the patient had issues throughout his treatment with episodes of severe dehydration and also has episodes of alcoholic binge and he could not tolerate 5-FU pump. Subsequently, he was switched to oral Xeloda by Dr. Cancino by the end of December of 2017 and he was just on a scheduled to 2 weeks on 1 week off and he just had 1 cycle of it. The patient came into the emergency department yesterday because he has not been feeling well. He has some intermittent rectal bleeding and he has had some fever at home and weakness. While in the emergency department, he had a seizure and he ended up being admitted to the hospital. The patient has lost some weight. He is moving his bowels, but he feels like he is not completely emptying his bowel and has had rectal bleeding as well. He stated that he had a low-grade fever at home, but he did not check it. No nausea or vomiting. No hematuria, hemoptysis, hematemesis or epistaxis. PAST MEDICAL HISTORY: In addition to what is stated above in regard to his metastatic rectal carcinoma. He has a history of COPD, hypertension, arthritis. He has a history of tonsillectomy, colonoscopy in the past. FAMILY HISTORY: For malignancy is negative. SOCIAL HISTORY: He is a smoker and he drinks alcohol occasionally, but quite often he has binge of drinking. No illicit drug use. He lives by himself. ALLERGIES: He has no known drug allergies. REVIEW OF SYSTEMS: As stated above in the history of present illness and otherwise negative. MEDICATIONS: Are reviewed in his electronic medical record. PHYSICAL EXAMINATION: He is alert, oriented x3. He does not appear to be in acute distress at this point in time. His vital signs are temperature 99, and he has been afebrile. He had a temperature of a 100.9 in the emergency department after a seizure. Pulse is 88, respiration 18, blood pressure 146/81. HEENT: Normocephalic, atraumatic. There is no obvious scleral icterus. NECK: Supple. No jugular venous distention. CHEST: Equal expansion bilaterally. LUNGS: Clear to auscultation and percussion. HEART is regular rhythm. ABDOMEN: Soft. No tenderness or ascites. Bowel sounds present. EXTREMITIES: No edema. SKIN: No significant bruise or petechiae. LYMPHATICS: No pathologic cervical supraclavicular nodes. MUSCULOSKELETAL: Moving all extremities appropriately. No percussion to the sacral spine or sternum. LABORATORY DATA: WBC of 7.6, hemoglobin 9.5, hematocrit 28.0, MCV is 104.6, platelets are 86. Sodium 134, potassium 2.9, chloride 101, BUN is 3, creatinine 0.4. His urinalysis revealed no evidence of infection. One set of blood culture was positive for gram-positive bacilli and one was one reported as a gram-negative bacilli. RADIOGRAPHIC DATA: A repeat CT scan of the abdomen and pelvis in the emergency department yesterday, which reveals stable disease in his liver. However, there is progression of his local disease in the rectum. Also had a CT scan of the brain which was unremarkable. IMPRESSION: 1. Metastatic rectal carcinoma as stated above. There is local progression of his disease. Clinically he does not have any obstructive symptoms. However, he has ongoing rectal bleeding and certainly he may end up with obstructive symptoms with further local progression of his disease. 2. Microcytic anemia. This is related to his metastatic liver disease and effective chemotherapy and alcoholism as well. B12 deficiency or folate deficiency felt to be less likely but certainly need to be excluded. 3. Bacteremia as stated above. Clinically the patient appears to be stable and there is no obvious source of infection. He had a low-grade fever yesterday in the emergency department after his seizure. This positive blood culture could be a contamination. We will await further identification of the organism and awaiting Infectious Disease recommendation. 4. Alcoholism. RECOMMENDATION: 1. Monitor blood count for now. 2. I believe palliative radiation therapy to his rectal mass should be highly considered instead of repeating scope and stent placement. With palliative radiation therapy, the issue of obstruction and the issue of ongoing bleeding could be addressed. 3. Monitor blood count closely. 4. May continue broad-spectrum antibiotics for now. Awaiting further culture results and Infectious Disease recommendation. Thank you very much. The above was discussed with the patient. I have answered all his questions. Thank you very much for asking me to participate in the care of this nice gentleman. MMJOVANL / IJN: [id number] /
--- NOTE | 2018-02-07 20:53 | P.CONS ---
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 Approximately 4 weeks ago he underwent follow-up endoscopy that showed evidence of a nearly obstructing mass that was circumferential and he's had ongoing significant symptoms of pressure and discomfort in the rectal area. He noticed he was having increasing fatigue and malaise had developed some fever and chills and was having dark bloody melanotic type stools. Because of this he presented to the emergency center. While in triage she had a witnessed tonic-clonic seizure with fecal incontinence. The patient subsequently was been admitted in with concerns to fever and leukocytosis the infectious diseases consultation was requested. The patient at this time is feeling considerably better but certainly not well. He has profound fatigue and malaise. He does not feel he is having further fever or chills. Continues to have rectal pain is better controlled since he's been in hospital. The patient relates that many years ago he did have a seizure when he was exhausted and not eating well. Lactic acid was performed bradycardia after his seizure was 14.8 and rapidly decreased to 0.9. As noted the patient feels poorly with had no further seizure-like activity. He is denying headache, it has not been noted to have any metastasis to his brain. Review of Systems HEENT:Denies headache or acute visual change. Denies sinus or mouth discomforts. Denies neck stiffness or pain. Denies significant oral cavity pain. Denies difficulty on swallowing. Lungs: Denies significant shortness of breath, cough, sputum production, or hemoptysis. Cardiovascular: Denies significant shortness of breath, chest pain, chest wall pain, orthopnea, dyspnea on exertion, syncope Gastrointestinal: As per the HPI Musculoskeletal: denies significant myalgias or arthralgias. No new joint swelling. Denies new back pain. Skin: Denies new rash or lesions. No new ulcers or wounds are related.. Neuro: As per the HPI seizure but not recurrent Psychiatric: Situational depression. Endocrine: Profound fatigue and weight loss continues Past Medical History Past Medical History: Cancer, COPD, Hyperlipidemia, Hypertension, Pneumonia Additional Past Medical History / Comment(s): Arthritis. colon cancer dx 12/17 received 12 treatments of chemo. has port rt upper chest History of Any Multi-Drug Resistant Organisms: None Reported Past Surgical History: Tonsillectomy Additional Past Surgical History / Comment(s): Colonoscopy 2018 Past Anesthesia/Blood Transfusion Reactions: No Reported Reaction Past Psychological History: No Psychological Hx Reported Additional Psychological History / Comment(s): Relates that a family member does live with him. 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 No experience. No international travel. No animals in the home. Stopped tobacco smoking in his 20s. Does have a history of alcohol use unclear amount as of late. Smoking Status: Former smoker - Past Family History Sister(s) Family Medical History: Cancer Additional Family Medical History / Comment(s): Sister Breast Ca Medications and Allergies Home Medications and Allergies Comment(s): Current Medications Acetaminophen (Tylenol Tab) 650 mg PO Q6HR PRN PRN Reason: Mild Pain or Fever > 100.5 Last Admin: 02/06/18 20:43 Dose: 650 mg Hydrocodone Bitart/Acetaminophen ([place] 10) 1 each PO Q6H PRN PRN Reason: Pain Last Admin: 02/07/18 18:38 Dose: 1 each Docusate Sodium (Colace) 100 mg PO BID [facility] Last Admin: 02/07/18 20:15 Dose: 100 mg Sodium Chloride (Saline 0.9%) 1,000 mls @ 120 mls/hr IV .Q8H20M [facility] Last Admin: 02/07/18 11:38 Dose: 120 mls/hr Cefepime HCl 2 gm/ Sodium (Chloride) 50 mls @ 100 mls/hr IVPB Q8HR [facility] Lorazepam (Ativan) 1 mg IV Q2HR PRN PRN Reason: CIWA 8 or 9 Lorazepam (Ativan) 1 mg IV Q1HR PRN PRN Reason: CIWA 10 to 15 Lorazepam (Ativan) 2 mg IV Q10M PRN PRN Reason: CIWA 16 or higher Stop: 02/08/18 19:31 Metronidazole (Flagyl) 500 mg PO TID [facility] Last Admin: 02/07/18 20:15 Dose: 500 mg Miscellaneous Information (Potassium Per Protocol) 1 each MISCELLANE DAILY PRN ; Protocol PRN Reason: Per Protocol Naloxone HCl (Narcan) 0.2 mg IV Q2M PRN PRN Reason: Opioid Reversal Nystatin (Mycostatin Oral Susp) 500,000 unit PO QID [facility] Last Admin: 02/07/18 20:15 Dose: 500,000 unit Pantoprazole Sodium (Protonix) 40 mg IV DAILY [facility] Last Admin: 02/07/18 09:05 Dose: 40 mg Thiamine HCl (Vitamin B-1) 100 mg PO BID@1200,1700 [facility] Last Admin: 02/07/18 17:16 Dose: 100 mg Home Medications Medication Instructions Recorded Confirmed Type HYDROcodone/APAP 5-325MG [[place] 1 tab PO Q6H PRN 10/05/17 02/06/18 History 5-325] amLODIPine [Norvasc] 10 mg PO HS 11/13/17 02/06/18 History Albuterol Inhaler [Ventolin Hfa 1 - 2 puff INHALATION RT-Q6H PRN 12/24/17 History Inhaler] Acetaminophen [Tylenol] 650 mg PO Q4H PRN 02/06/18 02/06/18 History Allergies Allergy/AdvReac Type Severity Reaction Status Date / Time No Known Allergies Allergy Verified 02/06/18 18:04 Physical Exam Vitals: Vital Signs Temp Pulse Pulse Resp BP BP Pulse Ox 02/07/18 16:00 99.2 F 88 18 137/79 96 02/07/18 12:00 99 F 88 18 146/81 98 02/07/18 08:00 98.4 F 95 18 144/80 98 02/07/18 04:00 98.5 F 68 17 95 02/07/18 00:00 98.6 F 98 19 131/79 93 L 02/06/18 20:47 99.2 F 101 H 16 121/84 98 02/06/18 20:34 99.0 F 94 16 148/78 98 Intake and Output 02/07/18 02/07/18 02/07/18 06:59 14:59 22:59 Intake Total 220 240 Output Total 900 Balance -680 240 Intake: Oral 220 240 Output: Urine 900 Other: Voiding Method Toilet Toilet # Voids 2 1 Weight 59.4 kg 57-year-old male not in acute distress, does relate to chronic abdominal discomfort not acutely changed HEENT: Anicteric conjunctiva are pink and moist nasal mucosa grossly intact without significant lesions, there is no thrush. Neck: The neck is supple without significant lymphadenopathy or thyromegaly. Lungs: Good bilateral air entry without significant crackles or wheezing. There is no significant bronchial sounds. There is no egophony or dullness. Heart: Regular rate and rhythm with an audible S1-S2, no S3 no S4. There is no significant murmur click or rub, PMI was nondisplaced. Abdomen: Nondistended with positive bowel sounds, some minimal tenderness in left lower quadrant without palpable mass or organomegaly there was no guarding or rebound Extremities: The upper extremities have excellent pulses they are symmetric, no significant petechiae or telangiectasia. No splinter hemorrhages were noted. The lower extremities are free from significant edema. The peripheral pulses were 2+ and symmetric. Neuro: Awake alert oriented to person place and time. There are no acute new gross focal sensory motor deficits. Results CBC & Chem 7: 02/07/18 06:10 02/07/18 06:10 Labs: Abnormal Lab Results - Last 24 Hours (Table) 02/06/18 02/06/18 02/07/18 Range/Units 20:05 22:52 06:10 RBC 2.93 L 2.68 L (4.30-5.90) m/uL Hgb 10.0 L 9.5 L (13.0-17.5) gm/dL Hct 30.1 L 28.0 L (39.0-53.0) % MCV 102.9 H 104.6 H (80.0-100.0) fL MCH 35.4 H (25.0-35.0) pg RDW 15.6 H 15.6 H (11.5-15.5) % Plt Count 93 L 87 L (150-450) k/uL Neutrophils # 7.8 H (1.3-7.7) k/uL Lymphocytes # 0.8 L 0.8 L (1.0-4.8) k/uL PT 12.1 H (9.0-12.0) sec INR 1.3 H (<1.2) Sodium (137-145) mmol/L Potassium (3.5-5.1) mmol/L BUN (9-20) mg/dL Creatinine (0.66-1.25) mg/dL Calcium (8.4-10.2) mg/dL 02/07/18 Range/Units 06:10 RBC (4.30-5.90) m/uL Hgb (13.0-17.5) gm/dL Hct (39.0-53.0) % MCV (80.0-100.0) fL MCH (25.0-35.0) pg RDW (11.5-15.5) % Plt Count (150-450) k/uL Neutrophils # (1.3-7.7) k/uL Lymphocytes # (1.0-4.8) k/uL PT (9.0-12.0) sec INR (<1.2) Sodium 134 L (137-145) mmol/L Potassium 2.9 L (3.5-5.1) mmol/L BUN 3 L (9-20) mg/dL Creatinine 0.41 L (0.66-1.25) mg/dL Calcium 7.7 L (8.4-10.2) mg/dL Microbiology - Last 24 Hours (Table) 02/06/18 19:05 Urine Culture - Final Urine,Clean Catch 02/06/18 17:25 Blood Culture Gram Stain - Preliminary Blood 02/06/18 17:25 Blood Culture - Final Blood Laboratory Results WBC 7.6 k/uL (3.8-10.6) 02/07/18 06:10 RBC 2.68 m/uL (4.30-5.90) L 02/07/18 06:10 Hgb 9.5 gm/dL (13.0-17.5) L 02/07/18 06:10 Hct 28.0 % (39.0-53.0) L 02/07/18 06:10 MCV 104.6 fL (80.0-100.0) H 02/07/18 06:10 MCH 35.4 pg (25.0-35.0) H 02/07/18 06:10 MCHC 33.8 g/dL (31.0-37.0) 02/07/18 06:10 RDW 15.6 % (11.5-15.5) H 02/07/18 06:10 Plt Count 87 k/uL (150-450) L 02/07/18 06:10 Neutrophils % 80 % 02/07/18 06:10 Lymphocytes % 10 % 02/07/18 06:10 Monocytes % 7 % 02/07/18 06:10 Eosinophils % 1 % 02/07/18 06:10 Basophils % 0 % 02/07/18 06:10 Neutrophils # 6.1 k/uL (1.3-7.7) 02/07/18 06:10 Lymphocytes # 0.8 k/uL (1.0-4.8) L 02/07/18 06:10 Monocytes # 0.5 k/uL (0-1.0) 02/07/18 06:10 Eosinophils # 0.1 k/uL (0-0.7) 02/07/18 06:10 Basophils # 0.0 k/uL (0-0.2) 02/07/18 06:10 Macrocytosis Moderate 02/07/18 06:10 PT 12.1 sec (9.0-12.0) H 02/06/18 20:05 INR 1.3 (<1.2) H 02/06/18 20:05 APTT 27.6 sec (22.0-30.0) 02/06/18 20:05 Sodium 134 mmol/L (137-145) L 02/07/18 06:10 Potassium 2.9 mmol/L (3.5-5.1) L 02/07/18 06:10 Chloride 101 mmol/L (98-107) 02/07/18 06:10 Carbon Dioxide 27 mmol/L (22-30) 02/07/18 06:10 Anion Gap 6 mmol/L 02/07/18 06:10 BUN 3 mg/dL (9-20) L 02/07/18 06:10 Creatinine 0.41 mg/dL (0.66-1.25) L 02/07/18 06:10 Est GFR (CKD-EPI)AfAm >90 (>60 ml/min/1.73 sqM) 02/07/18 06:10 Est GFR (CKD-EPI)NonAf >90 (>60 ml/min/1.73 sqM) 02/07/18 06:10 Glucose 75 mg/dL (74-99) 02/07/18 06:10 Lactic Ac Sepsis Rflx Y 02/06/18 18:05 Plasma Lactic Acid To 0.9 mmol/L (0.7-2.0) 02/06/18 22:52 Calcium 7.7 mg/dL (8.4-10.2) L 02/07/18 06:10 Magnesium 1.8 mg/dL (1.6-2.3) 02/07/18 06:10 Total Bilirubin 1.3 mg/dL (0.2-1.3) 02/06/18 17:25 AST 204 U/L (17-59) H 02/06/18 17:25 ALT 45 U/L (21-72) 02/06/18 17:25 Alkaline Phosphatase 1048 U/L (38-126) H 02/06/18 17:25 Total Protein 6.6 g/dL (6.3-8.2) 02/06/18 17:25 Albumin 3.3 g/dL (3.5-5.0) L 02/06/18 17:25 TSH 1.050 mIU/L (0.465-4.680) 02/06/18 22:52 Urine Color Yellow 02/06/18 19:05 Urine Appearance Clear (Clear) 02/06/18 19:05 Urine pH 7.5 (5.0-8.0) 02/06/18 19:05 Ur Specific [place] 1.006 (1.001-1.035) 02/06/18 19:05 Urine Protein Negative (Negative) 02/06/18 19:05 Urine Glucose (UA) Negative (Negative) 02/06/18 19:05 Urine Ketones Negative (Negative) 02/06/18 19:05 Urine Blood Negative (Negative) 02/06/18 19:05 Urine Nitrite Negative (Negative) 02/06/18 19:05 Urine Bilirubin Negative (Negative) 02/06/18 19:05 Urine Urobilinogen 4.0 mg/dL (<2.0) 02/06/18 19:05 Ur Leukocyte Esterase Negative (Negative) 02/06/18 19:05 Stool Occult Blood Positive (Negative) 02/06/18 17:32 Urine Opiates Screen Not Detected (NotDetected) 02/06/18 19:05 Ur Oxycodone Screen Not Detected (NotDetected) 02/06/18 19:05 Urine Methadone Screen Not Detected (NotDetected) 02/06/18 19:05 Ur Propoxyphene Screen Not Detected (NotDetected) 02/06/18 19:05 Ur Barbiturates Screen Not Detected (NotDetected) 02/06/18 19:05 U Tricyclic Antidepress Not Detected (NotDetected) 02/06/18 19:05 Ur Phencyclidine Scrn Not Detected (NotDetected) 02/06/18 19:05 Ur Amphetamines Screen Not Detected (NotDetected) 02/06/18 19:05 U Methamphetamines Scrn Not Detected (NotDetected) 02/06/18 19:05 U Benzodiazepines Scrn Not Detected (NotDetected) 02/06/18 19:05 Urine Cocaine Screen Not Detected (NotDetected) 02/06/18 19:05 U Marijuana (THC) Screen Not Detected (NotDetected) 02/06/18 19:05 Serum Alcohol <10 mg/dL 02/06/18 17:25 C. difficile (EIA) Intrp Negative (Negative) 02/07/18 10:00 Microbiology 02/06/18 19:05 Urine,Clean Catch Urine Culture - Final 02/06/18 17:25 Blood Blood Culture Gram Stain - Preliminary 02/06/18 17:25 Blood Blood Culture - Final Assessment and Plan (1) Lactic acidosis Narrative/Plan: 57-year-old male who has a history of rectal cancer is metastatic to liver and lungs who has received 11 cycles of chemotherapy with FLOFOX and Avastin , recently was found evidence of a circumferential nearly obstructive lesion at the time of his endoscopy. The patient continues to have significant symptoms of pain and discomfort urgency and pressure as well as some blood per rectum. Surgical and oncology evaluations are in process. He has been seen by gastroenterology and is a consideration for a colonic stent to help with the current symptoms. There was evidence of leukocytosis at admission that has rapidly improved through the temperature 100.9 that is also resolved. Patient was initiated antibiotic therapy with Rocephin. There was concerns to sepsis because of the markedly elevated lactic acidosis at the time of his admission. Of importance is that he did have a seizure in a postictal state the lactic acidosis is noted which then rapidly improved. Recent imaging did not reveal evidence of any intra-abdominal pathology as far as abscess, the subglottic it is The nursing staff have no cold that there is evidence of a possible culture originally gram-positive bacilli which is thought to be contamination, however the laboratory has now corrected this to gram-negative bacilli. With this in addition to the metronidazole that was started for the colitis, cefepime is added for treatment of the gram-negative bacteremia. Follow up cultures requested. Oncology input is pending. Current Visit: Yes Status: Acute Code(s): E87.2 - ACIDOSIS SNOMED Code(s) : 53814248 (2) New onset seizure Current Visit: Yes Status: Acute Code(s): R56.9 - UNSPECIFIED CONVULSIONS SNOMED Code(s): 61902052 (3) Rectal cancer metastasized to liver Current Visit: Yes Status: Acute Code(s): C20 - MALIGNANT NEOPLASM OF RECTUM ; C78.7 - SECONDARY MALIG NEOPLASM OF LIVER AND INTRAHEPATIC BILE DUCT SNOMED Code(s): 453834711
[2018-02-07] MEDS: CEFEPIME 2 GM in SODIUM CHLORIDE 0.9% 50 ML IVPB SCH (22:26)
[2018-02-08 00:28] LABS: Glucose,Whole Blood 90 mg/dL (75-99)
[2018-02-08] MEDS: CEFEPIME 2 GM in SODIUM CHLORIDE 0.9% 50 ML IVPB SCH ×3 (06:10→20:30)
[2018-02-08] MEDS: HYDROcodone/APAP 10-325MG 1 EACH TAB PO PRN ×3 (06:11→18:43)
[2018-02-08] MEDS: SODIUM CHLORIDE 0.9% 1,000 ML IV SCH ×3 (06:13→23:27)
[2018-02-08 07:56] LABS: HCT 34.5 % (39.0-53.0); HGB 11.3 gm/dL (13.0-17.5); MCHC 32.9 g/dL (31.0-37.0); MCV 106.5 fL (80.0-100.0); Macrocytosis Moderate; Platelet Count 104 k/uL (150-450); RBC 3.24 m/uL (4.30-5.90); RDW 15.4 % (11.5-15.5); WBC 9.5 k/uL (3.8-10.6)
[2018-02-08 08:08] LABS: ALT 48 U/L (21-72); AST 175 U/L (17-59); Albumin 3.1 g/dL (3.5-5.0); Alkaline Phosphatase 839 U/L (38-126); Anion Gap 9 mmol/L; Blood Urea Nitrogen 3 mg/dL (9-20); Calcium 8.5 mg/dL (8.4-10.2); Carbon Dioxide 23 mmol/L (22-30); Chloride 102 mmol/L (98-107); Glucose 88 mg/dL (74-99); Potassium 3.9 mmol/L (3.5-5.1); Sodium 134 mmol/L (137-145); Total Bilirubin 1.2 mg/dL (0.2-1.3); Total Protein 6.5 g/dL (6.3-8.2)
--- NOTE | 2018-02-08 08:54 | MR ---
EXAMINATION TYPE: MR brain wo/w con DATE OF EXAM: 02/08/2018 COMPARISON: CT brain 02/06/2018 HISTORY: Patient with colon CA and new onset seizure activity TECHNIQUE: Multiplanar, multisequence images of the brain and brainstem is performed without and with IV contras t, utilizing 6 mL intravenous Gadavist . FINDINGS: Diffusion weighted images demonstrate no evidence of a recent infarct or other diffusion ab normality. The ventricular system and cisternal spaces are normal in size and appearance. The brain volume is age appropriate. There is faint periventricular and multiple small areas of focal abnormal signal in the white matter which is nonspecific but most typical of remote microvascular ischemia. There is pinpoint areas of enhancement involving the right temporal lobe and left temporal lobe. All measure less than 5 mm. These may be artifactual or vascular when compared to the sagittal and marrero l images. Early metastasis could not be excluded and could be followed on a short-term 1-3 month basi s to confirm stability. Diffusion FLAIR images demonstrate no definite abnormal signal within the temporal lobes. Changes of chronic sinusitis noted. Changes of mild chronic mastoiditis. Midline structures demonstrate normal morphology. The craniocervical junction appears within normal limits. The dural venous sinuses appear patent. IMPRESSION: 1. There are tiny pinpoint areas of enhancement involving the temporal lobes bilaterally. Although me tastases cannot be entirely excluded these are felt to BE most likely related to artifact or vascular structures when compared to sagittal and coronal imaging. No definite abnormal signal on FLAIR or di ffusion in the temporal lobes. Recommend a 1-3 month follow-up exam for further evaluation given the tiny size of lesions. 2. Mild nonspecific white matter changes most typical remote microvascular ischemia. Demyelinating pr ocess, hypertension, migraine headaches also in the differential diagnosis..
--- NOTE | 2018-02-08 09:05 | P.PN ---
Subjective Progress Note Date: 02/08/18 Patient is a 57-year-old male with PMH of stage IV colon CA with metastases to liver and lungs status post 11 cycles of chemotherapy who presented to the ED for rectal pain, black stools, fatigue, anorexia, and subjective fever and chills. Patient also had a tonic-clonic seizure while in the ED lasting less than a minute. In the ED, CT head was negative for acute abnormalities, with WBC 12.7, hemoglobin 9.9, sodium 131, potassium 2.7, and Hemoccult positive stools and a low-grade fever at 100.9 with tachycardia to 133. Abdomen and pelvis computed tomography scan with contrast was done and showed progressive rectal mass with retained stools suggestive of partial obstruction and with multiple lesions in the lung and liver consistent with metastatic disease stable from prior studies. The patient was started on IV antibiotics pending infectious disease consult. GI was consulted and recommended consideration for flexible sigmoidoscopy with stent placement to relieve obstruction due to enlarging rectal mass. Neurology was consulted and recommended MRI of brain with and without contrast to rule out metastatic lesions to the brain in the setting of seizure. Blood cultures drawn on admission grew Gram negative rods and the patient was started on Cefepime in conjunction w/ Flagyl. Patient was seen and examined at the bedside. His fatigue, weakness, and rectal pain are somewhat improved from yesterday. He continues to pass only small pellets of stool though no more blood or dark stools. He denied fever, chills, cough, chest pain, dysuria, headaches, nausea, or vomiting. He is scheduled to undergo MRI brain and EEG today. Objective - Vital Signs Vital signs: Vital Signs Temp 98.0 F 02/08/18 04:00 Pulse 103 H 02/08/18 04:00 Resp 18 02/08/18 04:00 BP 137/96 02/08/18 04:00 Pulse Ox 96 02/08/18 04:00 Intake & Output 02/07/18 02/08/18 02/08/18 18:59 06:59 18:59 Intake Total 460 1060 Output Total 900 Balance -440 1060 Weight 58.2 kg Intake: Intake, IV Titration 1060 Amount Cefepime 2 gm In Sodium 100 Chloride 0.9% 50 ml @ 100 mls/hr IVPB Q8H [facility] Rx#: [id number] Sodium Chloride 0.9% 1, 960 000 ml @ 120 mls/hr IV . Q8H20M [facility] Rx#:[id number] Oral 460 Output: Urine 900 Other: Voiding Method Toilet Toilet # Voids 1 2 - Exam General: Non-toxic, in no acute distress HEENT: NC/AT, anicteric sclerae, moist conjunctiva, no lid-lag, PERRLA, oropharynx clear, no erythema, exudates, EOMI Cardiovascular: S1/S2 wnl, no murmurs, rubs, or gallops Lungs: Clear to auscultation, normal respiratory effort, no accessory muscle use Abdominal: Mildly distended, non-tender, no guarding or rebound, normoactive bowel sounds Skin: Warm, dry Extremities: Warm, dry Psychiatric: Alert and oriented to person, place and time, appropriate affect, Intact judgment Neuro: CN II-XII grossly intact, no focal motor deficits, strength 5/5 throughout, sensation grossly intact throughout - Labs CBC & Chem 7: 02/08/18 07:19 02/08/18 07:19 Labs: Abnormal Lab Results - Last 24 Hours (Table) 02/08/18 02/08/18 Range/Units 07:19 07:19 RBC 3.24 L (4.30-5.90) m/uL Hgb 11.3 L (13.0-17.5) gm/dL Hct 34.5 L (39.0-53.0) % MCV 106.5 H (80.0-100.0) fL Plt Count 104 L (150-450) k/uL Sodium 134 L (137-145) mmol/L BUN 3 L (9-20) mg/dL Creatinine 0.39 L (0.66-1.25) mg/dL AST 175 H (17-59) U/L Alkaline Phosphatase 839 H (38-126) U/L Albumin 3.1 L (3.5-5.0) g/dL Microbiology - Last 24 Hours (Table) 02/06/18 17:25 Blood Culture Gram Stain - Preliminary Blood Blood Culture - Preliminary Gram Neg Bacilli 02/06/18 19:05 Urine Culture - Final Urine,Clean Catch 02/06/18 17:25 Blood Culture - Final Blood Assessment and Plan Plan: Stage IV colon ca with mets to lung and liver, s/p 11 cycles of chemo -Oncology recommendations appreciated -Pain control with [place] 10 Single episode of tonic-clonic seizure -CT head unremarkable -Neurology consult appreciated -Will await MRI brain with and without contrast and EEG Gram negative bactaremia -Infectious disease recommendations appreciated, continue with cefepime and Flagyl -Continue with IV fluids 120 mL an hour Partial bowel obstruction -GI recs appreciated -Considering flexible sigmoidoscopy and stent placement to relieve obstruction vs palliative rectal radiation -Consult radiation oncology -Continue with clear liquid diet Macrocytic anemia, improved -We'll check iron and B12 and folate -Likely component of chronic GI bleeding from malignancy -GI recs appreciated Chemotherapy -Likely secondary to malignancy -We will do anemia workup Hypokalemia, resolved DVT//GI prophylaxis -IPCDs -Protonix IV qd Discussed with: Patient Anticipated discharge date: 02/10/[address]: Home A total of 40 minutes was spent on the care of this complex patient more than 50 % of the time was spent in counseling and care coordination.
[2018-02-08] MEDS: metroNIDAZOLE 500 MG TAB PO SCH ×3 (09:09→20:30)
[2018-02-08] MEDS: DOCUSATE 100 MG CAP PO SCH ×2 (09:09→20:29)
[2018-02-08] MEDS: NYSTATIN 100,000 UNIT/ML SUSP 500,000 UNIT/5 ML CUP PO SCH ×4 (09:09→20:30)
[2018-02-08] MEDS: PANTOPRAZOLE 40 MG/10 ML VIAL IV SCH (09:10)
[2018-02-08 11:35] LABS: Glucose,Whole Blood 107 mg/dL (75-99)
[2018-02-08] MEDS: THIAMINE 100 MG TAB PO SCH ×2 (12:36→17:27)
--- NOTE | 2018-02-08 12:52 | PN ---
PROGRESS NOTE Patient is seen for followup for hypokalemia. The serum potassium was 20 and patient's serum potassium this morning is up to 3.9. He states he is feeling slightly better. The C. diff toxin was negative and serum aldosterone is renal level is not back yet. PHYSICAL EXAMINATION: Blood pressure was 151/89, heart rate 109 per minute, patient is afebrile. Examination of the heart, S1, S2. Examination of the lungs, bilateral breath sounds are heard. Abdomen is soft, nontender. Examination of the lower extremities shows no evidence of edema. [employer] exam is grossly intact. LABS: Show sodium 134, potassium 3.9, BUN 3, serum creatinine 0.39, hemoglobin 11.3 g/dL. ASSESSMENT: 1. Hypokalemia with no significant renal potassium wasting noted on labs on urine lytes from yesterday. The aldosterone and renal levels are currently pending. Will continue with supplementation and patient is advised to increase potassium in his diet as well. I will start him on Aldactone as the aldosterone and renal levels have already been drawn. 2. History of colon cancer with liver metastases, status post chemotherapy. PLAN: 1. Start Aldactone. 2. Continue to monitor electrolytes as outpatient, periodically. MMODL / IJN: [id number] /
--- NOTE | 2018-02-08 16:59 | P.PN ---
Subjective Progress Note Date: 02/08/18 Principal diagnosis: Rectal bleeding, metastatic rectal adenocarcinoma Pt seen in f/u, he is still having rectal bleeding, he is not qualifying it as severe, he has lower abd discomfort at times, no fevers. Objective - Vital Signs Vital signs: Vital Signs Temp 98.3 F 02/08/18 15:30 Pulse 50 L 02/08/18 15:31 Resp 20 02/08/18 15:31 BP 143/86 02/08/18 15:30 Pulse Ox 99 02/08/18 15:30 Intake & Output 02/07/18 02/08/18 02/08/18 18:59 06:59 18:59 Intake Total 460 1060 360 Output Total 900 Balance -440 1060 360 Weight 58.2 kg 58.2 kg Intake: Intake, IV Titration 1060 Amount Cefepime 2 gm In Sodium 100 Chloride 0.9% 50 ml @ 100 mls/hr IVPB Q8H [facility] Rx#: [id number] Sodium Chloride 0.9% 1, 960 000 ml @ 120 mls/hr IV . Q8H20M [facility] Rx#:[id number] Oral 460 360 Output: Urine 900 Other: Voiding Method Toilet Toilet Toilet # Voids 1 2 1 - Constitutional General appearance: Present: average body habitus, cooperative, no acute distress - EENT Eyes: Present: anicteric sclerae, EOMI - Respiratory Respiratory: bilateral: CTA - Cardiovascular Heart sounds: normal: S1, S2 - Gastrointestinal General gastrointestinal: Present: soft - Integumentary Integumentary: Present: normal - Neurologic Neurologic: Present: CNII-XII intact - Musculoskeletal Musculoskeletal: Present: strength equal bilaterally - Psychiatric Psychiatric: Present: A&O x's 3, appropriate affect - Labs CBC & Chem 7: 02/08/18 07:19 02/08/18 07:19 Labs: Abnormal Lab Results - Last 24 Hours (Table) 02/08/18 02/08/18 02/08/18 Range/Units 07:19 07:19 11:15 RBC 3.24 L (4.30-5.90) m/uL Hgb 11.3 L (13.0-17.5) gm/dL Hct 34.5 L (39.0-53.0) % MCV 106.5 H (80.0-100.0) fL Plt Count 104 L (150-450) k/uL Sodium 134 L (137-145) mmol/L BUN 3 L (9-20) mg/dL Creatinine 0.39 L (0.66-1.25) mg/dL POC Glucose (mg/dL) 107 H (75-99) mg/dL AST 175 H (17-59) U/L Alkaline Phosphatase 839 H (38-126) U/L Albumin 3.1 L (3.5-5.0) g/dL Microbiology - Last 24 Hours (Table) 02/06/18 17:25 Blood Culture - Final Blood 02/06/18 17:25 Blood Culture Gram Stain - Preliminary Blood Blood Culture - Preliminary Gram Neg Bacilli 02/06/18 19:05 Urine Culture - Final Urine,Clean Catch Assessment and Plan (1) Lower GI hemorrhage Current Visit: Yes Status: Acute Priority: High Code(s): K92.2 - GASTROINTESTINAL HEMORRHAGE, UNSPECIFIED SNOMED Code(s): 18375540 (2) Rectal cancer metastasized to liver Current Visit: Yes Status: Acute Priority: High Code(s): C20 - MALIGNANT NEOPLASM OF RECTUM; C78.7 - SECONDARY MALIG NEOPLASM OF LIVER AND INTRAHEPATIC BILE DUCT SNOMED Code(s): 178674443 Plan: Rectal bleeding secondary to rectal adeno. Dr. Granados did discuss case with Dr. Ramires who is going to evaluate pt for palliative radiation for symptoms of bleeding and obstruction. Pt states he has had 1 cycle of oral xeloda, he has not been able to get to office for meds, I have to investigate further why meds are not being delivered to pt home. Will f/u.
--- NOTE | 2018-02-08 19:02 | PN ---
PROGRESS NOTE DATE OF SERVICE: 02/08/2018 Patient is a 57-year-old pleasant white male admitted to the hospital with prior rectal bleeding and rectal discomfort. He was diagnosed with metastatic rectal cancer in April of 2017, status post chemotherapy and presently on oral chemo regimen. He has been having intermittent rectal bleeding on and off for the last several months duration which lately has been progressively getting worse. He still remains the same today. He had 2 episodes of rectal bleeding this morning. Reports no abdominal pain. No nausea, vomiting. PHYSICAL EXAMINATION: He appears comfortable. No apparent distress. VITAL SIGNS: Stable. Blood pressure is 132/92, pulse rate 90, temperature 97.9. HEENT examination unremarkable. Conjunctivae pink. Sclerae anicteric. Oral cavity no lesions. Neck no JVD. No lymph node enlargement. Chest was clear to auscultation. HEART: Regular rate and rhythm. ABDOMEN: Soft. Bowel sounds are positive. No organomegaly. Extremities: No pedal edema. Skin no rashes. NEUROLOGIC: Alert and oriented x3. No focal deficits. LABS: From today hemoglobin is 11.3, WBC 9.5, platelets 104. Basic metabolic is normal. IMPRESSION: 1. Metastatic rectal cancer with liver and lung METS, undergoing chemotherapy and follows with Dr. Cancino on outpatient basis. 2. Rectal bleeding and rectal discomfort secondary to large ulcerated rectal mass. He had an by Dr. Culp on December 29, 2017 which rectal mass. He was seen by Dr. Granados yesterday and he recommendations palliative radiation therapy for rectal symptoms rather than stent placement. RECOMMENDATIONS: 1. Agree with Dr. Granados's recommendations. 2. We will hold off on any endoscopy intervention or stent placement at this time. 3. We will sign off. Please call us if needed if he has further issues. Thank you for the consultation. MMODL / IJN: [id number] /
--- NOTE | 2018-02-08 20:28 | P.PN ---
Subjective Progress Note Date: 02/08/18 57-year-old male with a history of metastatic rectal cancer with pulmonary and liver metastasis, has completed 11 cycles of chemotherapy with FLOFOX and Avastin. Approximately 4 weeks ago he underwent follow-up endoscopy that showed evidence of a nearly obstructing mass that was circumferential and he's had ongoing significant symptoms of pressure and discomfort in the rectal area. He noticed he was having increasing fatigue and malaise had developed some fever and chills and was having dark bloody melanotic type stools. Because of this he presented to the emergency center. While in triage she had a witnessed tonic-clonic seizure with fecal incontinence. The patient subsequently was been admitted in with concerns to fever and leukocytosis the infectious diseases consultation was requested. The patient at this time is feeling considerably better but certainly not well. He has profound fatigue and malaise. He does not feel he is having further fever or chills. Continues to have rectal pain is better controlled since he's been in hospital. The patient relates that many years ago he did have a seizure when he was exhausted and not eating well. Lactic acid was performed bradycardia after his seizure was 14.8 and rapidly decreased to 0.9. As noted the patient feels poorly with had no further seizure-like activity. He is denying headache, it has not been noted to have any metastasis to his brain. Patient is feeling considerably better today. Denies further black tarry stools today. He has been seen by oncology and it appears that a course of palliative radiation therapy will be initiated and then rectal stent if there is any further need. Objective - Vital Signs Vital signs: Vital Signs Temp 98.3 F 02/08/18 15:30 Pulse 50 L 02/08/18 15:31 Resp 20 02/08/18 15:31 BP 143/86 02/08/18 15:30 Pulse Ox 99 02/08/18 15:30 Intake & Output 02/08/18 02/08/18 02/09/18 06:59 18:59 06:59 Intake Total 1060 720 Balance 1060 720 Weight 58.2 kg 58.2 kg Intake: Intake, IV Titration 1060 Amount Cefepime 2 gm In Sodium 100 Chloride 0.9% 50 ml @ 100 mls/hr IVPB Q8H [facility] Rx#: [id number] Sodium Chloride 0.9% 1, 960 000 ml @ 120 mls/hr IV . Q8H20M [facility] Rx#:[id number] Oral 720 Other: Voiding Method Toilet Toilet # Voids 2 2 - Exam 57-year-old male not in acute distress, does relate to chronic abdominal discomfort not acutely changed HEENT: Anicteric conjunctiva are pink and moist nasal mucosa grossly intact without significant lesions, there is no thrush. Neck: The neck is supple without significant lymphadenopathy or thyromegaly. Lungs: Good bilateral air entry without significant crackles or wheezing. There is no significant bronchial sounds. There is no egophony or dullness. Heart: Regular rate and rhythm with an audible S1-S2, no S3 no S4. There is no significant murmur click or rub, PMI was nondisplaced. Abdomen: Nondistended with positive bowel sounds, some minimal tenderness in left lower quadrant without palpable mass or organomegaly there was no guarding or rebound Extremities: The upper extremities have excellent pulses they are symmetric, no significant petechiae or telangiectasia. No splinter hemorrhages were noted. The lower extremities are free from significant edema. The peripheral pulses were 2+ and symmetric. Neuro: Awake alert oriented to person place and time. There are no acute new gross focal sensory motor deficits. - Labs CBC & Chem 7: 02/08/18 07:19 02/08/18 07:19 Labs: Abnormal Lab Results - Last 24 Hours (Table) 02/08/18 02/08/18 02/08/18 Range/Units 07:19 07:19 11:15 RBC 3.24 L (4.30-5.90) m/uL Hgb 11.3 L (13.0-17.5) gm/dL Hct 34.5 L (39.0-53.0) % MCV 106.5 H (80.0-100.0) fL Plt Count 104 L (150-450) k/uL Sodium 134 L (137-145) mmol/L BUN 3 L (9-20) mg/dL Creatinine 0.39 L (0.66-1.25) mg/dL POC Glucose (mg/dL) 107 H (75-99) mg/dL AST 175 H (17-59) U/L Alkaline Phosphatase 839 H (38-126) U/L Albumin 3.1 L (3.5-5.0) g/dL Microbiology - Last 24 Hours (Table) 02/06/18 17:25 Blood Culture - Final Blood 02/06/18 17:25 Blood Culture Gram Stain - Preliminary Blood Blood Culture - Preliminary Gram Neg Bacilli 02/06/18 19:05 Urine Culture - Final Urine,Clean Catch Laboratory Results WBC 9.5 k/uL (3.8-10.6) 02/08/18 07:19 RBC 3.24 m/uL (4.30-5.90) L 02/08/18 07:19 Hgb 11.3 gm/dL (13.0-17.5) L 02/08/18 07:19 Hct 34.5 % (39.0-53.0) L 02/08/18 07:19 MCV 106.5 fL (80.0-100.0) H 02/08/18 07:19 MCH 35.0 pg (25.0-35.0) 02/08/18 07:19 MCHC 32.9 g/dL (31.0-37.0) 02/08/18 07:19 RDW 15.4 % (11.5-15.5) 02/08/18 07:19 Plt Count 104 k/uL (150-450) L 02/08/18 07:19 Neutrophils % 80 % 02/07/18 06:10 Lymphocytes % 10 % 02/07/18 06:10 Monocytes % 7 % 02/07/18 06:10 Eosinophils % 1 % 02/07/18 06:10 Basophils % 0 % 02/07/18 06:10 Neutrophils # 6.1 k/uL (1.3-7.7) 02/07/18 06:10 Lymphocytes # 0.8 k/uL (1.0-4.8) L 02/07/18 06:10 Monocytes # 0.5 k/uL (0-1.0) 02/07/18 06:10 Eosinophils # 0.1 k/uL (0-0.7) 02/07/18 06:10 Basophils # 0.0 k/uL (0-0.2) 02/07/18 06:10 Macrocytosis Moderate 02/08/18 07:19 PT 12.1 sec (9.0-12.0) H 02/06/18 20:05 INR 1.3 (<1.2) H 02/06/18 20:05 APTT 27.6 sec (22.0-30.0) 02/06/18 20:05 Sodium 134 mmol/L (137-145) L 02/08/18 07:19 Potassium 3.9 mmol/L (3.5-5.1) 02/08/18 07:19 Chloride 102 mmol/L (98-107) 02/08/18 07:19 Carbon Dioxide 23 mmol/L (22-30) 02/08/18 07:19 Anion Gap 9 mmol/L 02/08/18 07:19 BUN 3 mg/dL (9-20) L 02/08/18 07:19 Creatinine 0.39 mg/dL (0.66-1.25) L 02/08/18 07:19 Est GFR (CKD-EPI)AfAm >90 (>60 ml/min/1.73 sqM) 02/08/18 07:19 Est GFR (CKD-EPI)NonAf >90 (>60 ml/min/1.73 sqM) 02/08/18 07:19 Glucose 88 mg/dL (74-99) 02/08/18 07:19 POC Glucose (mg/dL) 107 mg/dL (75-99) H 02/08/18 11:15 POC Glu Construction Superintendent ID Mariely Garcia 02/08/18 11:15 Lactic Ac Sepsis Rflx Y 02/06/18 18:05 Plasma Lactic Acid To 0.9 mmol/L (0.7-2.0) 02/06/18 22:52 Calcium 8.5 mg/dL (8.4-10.2) 02/08/18 07:19 Magnesium 1.8 mg/dL (1.6-2.3) 02/07/18 06:10 Total Bilirubin 1.2 mg/dL (0.2-1.3) 02/08/18 07:19 AST 175 U/L (17-59) H 02/08/18 07:19 ALT 48 U/L (21-72) 02/08/18 07:19 Alkaline Phosphatase 839 U/L (38-126) H 02/08/18 07:19 Total Protein 6.5 g/dL (6.3-8.2) 02/08/18 07:19 Albumin 3.1 g/dL (3.5-5.0) L 02/08/18 07:19 Vitamin B12 460.0 pg/mL (200.0-944.0) 02/06/18 22:52 TSH 1.050 mIU/L (0.465-4.680) 02/06/18 22:52 Urine Color Yellow 02/06/18 19:05 Urine Appearance Clear (Clear) 02/06/18 19:05 Urine pH 7.5 (5.0-8.0) 02/06/18 19:05 Ur Specific Ada 1.006 (1.001-1.035) 02/06/18 19:05 Urine Protein Negative (Negative) 02/06/18 19:05 Urine Glucose (UA) Negative (Negative) 02/06/18 19:05 Urine Ketones Negative (Negative) 02/06/18 19:05 Urine Blood Negative (Negative) 02/06/18 19:05 Urine Nitrite Negative (Negative) 02/06/18 19:05 Urine Bilirubin Negative (Negative) 02/06/18 19:05 Urine Urobilinogen 4.0 mg/dL (<2.0) 02/06/18 19:05 Ur Leukocyte Esterase Negative (Negative) 02/06/18 19:05 Ur Random Sodium 187 mmol/L 02/07/18 11:50 Ur Random Potassium 20.0 mmol/L 02/07/18 11:50 Stool Occult Blood Positive (Negative) 02/06/18 17:32 Urine Opiates Screen Not Detected (NotDetected) 02/06/18 19:05 Ur Oxycodone Screen Not Detected (NotDetected) 02/06/18 19:05 Urine Methadone Screen Not Detected (NotDetected) 02/06/18 19:05 Ur Propoxyphene Screen Not Detected (NotDetected) 02/06/18 19:05 Ur Barbiturates Screen Not Detected (NotDetected) 02/06/18 19:05 U Tricyclic Antidepress Not Detected (NotDetected) 02/06/18 19:05 Ur Phencyclidine Scrn Not Detected (NotDetected) 02/06/18 19:05 Ur Amphetamines Screen Not Detected (NotDetected) 02/06/18 19:05 U Methamphetamines Scrn Not Detected (NotDetected) 02/06/18 19:05 U Benzodiazepines Scrn Not Detected (NotDetected) 02/06/18 19:05 Urine Cocaine Screen Not Detected (NotDetected) 02/06/18 19:05 U Marijuana (THC) Screen Not Detected (NotDetected) 02/06/18 19:05 Serum Alcohol <10 mg/dL 02/06/18 17:25 C. difficile (EIA) Intrp Negative (Negative) 02/07/18 10:00 Microbiology 02/06/18 17:25 Blood Blood Culture - Final 02/06/18 17:25 Blood Blood Culture Gram Stain - Preliminary 02/06/18 17:25 Blood Blood Culture - Preliminary Gram Neg Bacilli 02/06/18 19:05 Urine,Clean Catch Urine Culture - Final Assessment and Plan (1) Lactic acidosis Narrative/Plan: 57-year-old male who has a history of rectal cancer is metastatic to liver and lungs who has received 11 cycles of chemotherapy with FLOFOX and Avastin , recently was found evidence of a circumferential nearly obstructive lesion at the time of his endoscopy. The patient continues to have significant symptoms of pain and discomfort urgency and pressure as well as some blood per rectum. Surgical and oncology evaluations are in process. He has been seen by gastroenterology and is a consideration for a colonic stent to help with the current symptoms. There was evidence of leukocytosis at admission that has rapidly improved through the temperature 100.9 that is also resolved. Patient was initiated antibiotic therapy with Rocephin. There was concerns to sepsis because of the markedly elevated lactic acidosis at the time of his admission. Of importance is that he did have a seizure in a postictal state the lactic acidosis is noted which then rapidly improved. Recent imaging did not reveal evidence of any intra-abdominal pathology as far as abscess, or free air The nursing staff have no cold that there is evidence of a possible culture originally gram-positive bacilli which is thought to be contamination, however the laboratory has now corrected this to gram-negative bacilli. With this in addition to the metronidazole that was started for the colitis, cefepime is added for treatment of the gram-negative bacteremia. Follow up cultures requested. Oncology input is pending. 02/08/2018 patient relates that he is feeling slightly better today. He is not having any further seizure. Fevers have improved. Tolerating antibiotic therapy well. He has been seen by oncology and there are plans for preoperative chemotherapy for the nearly obstructing rectal tumor which is palliative in nature. There is evidence of the possible cultures gram-negative bacilli we await the final dedication to determine if there will be the option for some oral treatment or if it'll require outpatient intravenous antibiotic therapy at the discharge. Patient is quite hungry and asking the surgical team what can be done with his diet at this time. Current Visit: Yes Status: Acute Code(s): E87.2 - ACIDOSIS SNOMED Code(s) : 65529125 (2) New onset seizure Current Visit: Yes Status: Acute Code(s): R56.9 - UNSPECIFIED CONVULSIONS SNOMED Code(s): 46708291 (3) Rectal cancer metastasized to liver Current Visit: Yes Status: Acute Priority: High Code(s): C20 - MALIGNANT NEOPLASM OF RECTUM; C78.7 - SECONDARY MALIG NEOPLASM OF LIVER AND INTRAHEPATIC BILE DUCT SNOMED Code(s): 095381909
[2018-02-09 00:25] LABS: Glucose,Whole Blood 85 mg/dL (75-99)
[2018-02-09] MEDS: HYDROcodone/APAP 10-325MG 1 EACH TAB PO PRN ×4 (00:44→19:35)
[2018-02-09] MEDS: CEFEPIME 2 GM in SODIUM CHLORIDE 0.9% 50 ML IVPB SCH ×3 (05:05→22:23)
[2018-02-09] MEDS: SODIUM CHLORIDE 0.9% 1,000 ML IV SCH ×3 (05:06→23:39)
[2018-02-09 07:18] LABS: Anisocytosis Slight; HCT 31.3 % (39.0-53.0); HGB 10.6 gm/dL (13.0-17.5); MCH 35.2 pg (25.0-35.0); MCHC 33.7 g/dL (31.0-37.0); MCV 104.4 fL (80.0-100.0); Macrocytosis Moderate; Mean Platelet Volume 7.5; Platelet Count 112 k/uL (150-450); RDW 16.1 % (11.5-15.5); WBC 8.2 k/uL (3.8-10.6)
[2018-02-09 07:37] LABS: ALT 50 U/L (21-72); AST 127 U/L (17-59); Albumin 2.7 g/dL (3.5-5.0); Alkaline Phosphatase 639 U/L (38-126); Anion Gap 11 mmol/L; Blood Urea Nitrogen 3 mg/dL (9-20); Calcium 8.3 mg/dL (8.4-10.2); Carbon Dioxide 22 mmol/L (22-30); Chloride 103 mmol/L (98-107); Glucose 80 mg/dL (74-99); Potassium 3.3 mmol/L (3.5-5.1); Sodium 136 mmol/L (137-145); Total Protein 5.9 g/dL (6.3-8.2)
--- NOTE | 2018-02-09 08:54 | P.CONS ---
History of Present Illness - Reason for Consult Consult date: 02/08/18 rectal bleeding Requesting physician: Yaneli Granados - Chief Complaint rectal bleeding - History of Present Illness The patient is a 57-year-old male with a history of metastatic adenocarcinoma of the rectum diagnosed in April 2017 with disease involving the liver and lungs. He initiated FOLFOX with Avastin May and completed 11 cycles with his most recent being December 07, 2017. The patient was subsequently switched to oral Xeloda after he had difficulty with the 5-FU pump. He completed 1 of his planned 2 weeks on one week off of the Xeloda and has been on a chemotherapy break for the past month. The patient reports that after initiating chemotherapy, he had significant improvement in his abnormal bowel movements and had resolution of previously noted blood in the stool. Unfortunately, over the past couple of months these symptoms have returned. The patient is now again noticing blood mixed in with the stool. He does not believe he routinely sees clots. He reports 2-3 bowel movements per day, but these are not solid typically very small pellets. He has associated rectal urgency, but does report good sphincter control. The patient reports that he has been feeling poorly at home and he called a cab to come to [facility]. While in the emergency room, the patient had a witnessed tonic-clonic seizure. CT scan of the brain performed on February 06 was [address]. A CT scan of the abdomen and pelvis performed the same day revealed a 10 x 4.5 cm rectal mass which had progressed when compared to the previous PET/CT from April. The patient's other CT imaging from the past several months was unavailable having been performed at an outside institution. Unfortunately, the patient's history is significant for alcohol abuse. It is likely the seizure relates to this. The patient lives alone, and does not have his own transportation. He reports living about 4 miles from the hospital. Review of Systems Constitutional: Denies chills, Denies fever Eyes: denies blurred vision Ears: deny: decreased hearing Ears, nose, mouth and throat: Denies headache Cardiovascular: Denies chest pain Respiratory: Denies congestion, Denies cough Gastrointestinal: Reports BRBPR, Reports change in bowel habits, Reports excessive gas Neurological: Reports convulsions Past Medical History Past Medical History: Cancer, COPD, Hyperlipidemia, Hypertension, Pneumonia Additional Past Medical History / Comment(s): Arthritis. colon cancer dx 04/19 received 12 treatments of chemo. has port rt upper chest History of Any Multi-Drug Resistant Organisms: None Reported Past Surgical History: Tonsillectomy Additional Past Surgical History / Comment(s): Colonoscopy 2018 Past Anesthesia/Blood Transfusion Reactions: No Reported Reaction Past Psychological History: No Psychological Hx Reported Additional Psychological History / Comment(s): Relates that a family member does live with him. 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 No experience. No international travel. No animals in the home. Stopped tobacco smoking in his 20s. Does have a history of alcohol use unclear amount as of late. Smoking Status: Former smoker Past Alcohol Use History: Abuse - Past Family History Sister(s) Family Medical History: Cancer Additional Family Medical History / Comment(s): Sister Breast Ca Medications and Allergies Home Medications Medication Instructions Recorded Confirmed Type HYDROcodone/APAP 5-325MG [[place] 1 tab PO Q6H PRN 10/05/17 02/06/18 History 5-325] amLODIPine [Norvasc] 10 mg PO HS 11/13/17 02/06/18 History Albuterol Inhaler [Ventolin Hfa 1 - 2 puff INHALATION RT-Q6H PRN 12/24/17 History Inhaler] Acetaminophen [Tylenol] 650 mg PO Q4H PRN 02/06/18 02/06/18 History Allergies Allergy/AdvReac Type Severity Reaction Status Date / Time No Known Allergies Allergy Verified 02/06/18 18:04 Physical Exam Vitals: Vital Signs Temp Pulse Resp BP Pulse Ox 02/09/18 08:00 99.3 F 98 20 140/92 98 02/09/18 03:37 92 18 02/09/18 03:36 98.5 F 92 18 148/98 97 02/09/18 00:00 97.4 F L 84 18 129/90 99 02/08/18 20:00 98.1 F 79 18 140/99 100 02/08/18 15:31 50 L 20 02/08/18 15:30 98.3 F 50 L 20 143/86 99 02/08/18 12:00 97.9 F 90 18 140/92 99 Intake and Output 02/08/18 02/09/18 02/09/18 22:59 06:59 14:59 Intake Total 1420 960 Balance 1420 960 Intake: Intake, IV Titration 1060 960 Amount Cefepime 2 gm In Sodium 100 Chloride 0.9% 50 ml @ 100 mls/hr IVPB Q8H [facility] Rx#: [id number] Sodium Chloride 0.9% 1, 960 960 000 ml @ 120 mls/hr IV . Q8H20M [facility] Rx#:[id number] Oral 360 Other: Voiding Method Toilet Toilet Toilet # Voids 1 Weight 58.2 kg 59.1 kg - Constitutional General appearance: thin - EENT Eyes: EOMI, PERRLA Ears: bilateral: normal - Neck Neck: no lymphadenopathy - Respiratory Respiratory: bilateral: CTA - Cardiovascular Rhythm: regular - Gastrointestinal General gastrointestinal: no distended, no tenderness - Integumentary Integumentary: no calor - Neurologic Neurologic: CNII-XII intact - Musculoskeletal Musculoskeletal: strength equal bilaterally - Psychiatric Psychiatric: A&O x's 3, appropriate affect Results CBC & Chem 7: 02/09/18 07:04 02/09/18 07:04 Labs: Abnormal Lab Results - Last 24 Hours (Table) 02/08/18 02/09/18 02/09/18 Range/Units 11:15 07:04 07:04 RBC 3.00 L (4.30-5.90) m/uL Hgb 10.6 L (13.0-17.5) gm/dL Hct 31.3 L (39.0-53.0) % MCV 104.4 H (80.0-100.0) fL MCH 35.2 H (25.0-35.0) pg RDW 16.1 H (11.5-15.5) % Plt Count 112 L (150-450) k/uL Sodium 136 L (137-145) mmol/L Potassium 3.3 L (3.5-5.1) mmol/L BUN 3 L (9-20) mg/dL Creatinine 0.37 L (0.66-1.25) mg/dL POC Glucose (mg/dL) 107 H (75-99) mg/dL Calcium 8.3 L (8.4-10.2) mg/dL AST 127 H (17-59) U/L Alkaline Phosphatase 639 H (38-126) U/L Total Protein 5.9 L (6.3-8.2) g/dL Albumin 2.7 L (3.5-5.0) g/dL Microbiology - Last 24 Hours (Table) 02/06/18 17:25 Blood Culture Gram Stain - Final Blood Blood Culture - Final Escherichia coli 02/06/18 17:25 Blood Culture - Final Blood CT scan - abdomen: report reviewed, image reviewed CT Scan - head: report reviewed, image reviewed CT scan - pelvis: report reviewed, image reviewed MRI - head: report reviewed, image reviewed Assessment and Plan Plan: 1. BRBPR secondary to locally progressive adenocarcinoma of the rectum: The patient has radiographic and clinical evidence of progression of his local upper rectal cancer. I explained to the patient that he is at risk of obstruction, and continued bleeding without treatment. I explained to the patient have recommended a palliative course of radiotherapy directed to the rectum. I explained this treatment will be delivered Thursday through Thursday, 5 days a week for approximately 2 weeks. I discussed potential side effects of this treatment which include, but are not limited to; fatigue, increased urinary urgency, frequency, dysuria, increased frequency of bowel movements, loose stools and proctitis. I discussed that with a palliative dose of radiation I did not expect to resolve this local tumor, but to hopefully halt its further progression. The patient is amenable to starting palliative radiotherapy, and he will undergo CT simulation today. 2. Metastatic adenocarcinoma of rectum: The patient is unsure if he will continue Xeloda or not at this point. I will discuss this further with the patient's medical oncologist. If he is to continue Xeloda during his treatment , I would consider a slightly dose reduction in his radiotherapy. 3. Seizure: Upon reviewing the patient's MRI, this does not appear to be related to metastatic disease. The patient does have a couple of small punctate foci which are indeterminant, and future exams should be repeated in approximately 2-3 months. Regardless, these areas are much too small to cause any mass effect to be responsible for a seizure. Time with Patient: Greater than 30
[2018-02-09] MEDS: NYSTATIN 100,000 UNIT/ML SUSP 500,000 UNIT/5 ML CUP PO SCH ×3 (11:04→17:05)
[2018-02-09] MEDS: DOCUSATE 100 MG CAP PO SCH ×2 (11:04→22:23)
[2018-02-09] MEDS: PANTOPRAZOLE 40 MG/10 ML VIAL IV SCH (11:04)
[2018-02-09] MEDS: THIAMINE 100 MG TAB PO SCH ×2 (11:04→17:05)
[2018-02-09] MEDS: metroNIDAZOLE 500 MG TAB PO SCH ×2 (11:04→17:05)
[2018-02-09 12:09] LABS: Iron Saturation 16.04 (15.00-50.00)
--- NOTE | 2018-02-09 13:00 | P.PN ---
Subjective Progress Note Date: 02/09/18 Principal diagnosis: Rectal pain, fatigue, Seizure like activity. Patient was seen and examined. No acute events overnight. Patient reports passing a small bowel movement this morning. Stool is light brown in color. No blood or melena. He denies any abdominal pain. He had an evaluation with radiation oncology, decision made to undergo radiation treatment. Patient requesting a change in his clear liquid diet. He has no other complaints this morning. Objective - Vital Signs Vital signs: Vital Signs Temp 99.3 F 02/09/18 08:00 Pulse 98 02/09/18 08:00 Resp 20 02/09/18 08:00 BP 140/92 02/09/18 08:00 Pulse Ox 98 02/09/18 08:00 Intake & Output 02/08/18 02/09/18 02/09/18 18:59 06:59 18:59 Intake Total 720 2020 Balance 720 2020 Weight 58.2 kg 59.1 kg Intake: Intake, IV Titration 2020 Amount Cefepime 2 gm In Sodium 100 Chloride 0.9% 50 ml @ 100 mls/hr IVPB Q8H [facility] Rx#: [id number] Sodium Chloride 0.9% 1, 1920 000 ml @ 120 mls/hr IV . Q8H20M [facility] Rx#:[id number] Oral 720 Other: Voiding Method Toilet Toilet Toilet # Voids 2 1 - Exam General: [non toxic], [no distress], [appears at stated age] Derm: [warm], [dry] Head: [atraumatic], [normocephalic], [symmetric] Eyes: [EOMI], [no lid lag], [anicteric sclera] Mouth: [no lip lesion], [mucus membranes moist] Cardiovascular: [S1S2 reg], [no murmur] Lungs: [CTA bilateral], [no rhonchi, no rales] , [no accessory muscle use] Abdominal: [soft], [ nontender to palpation], [no guarding], [no appreciable organomegaly] Ext: [no gross muscle atrophy], [no edema], [no contractures] Psych: [Alert], [oriented], [appropriate affect] - Labs CBC & Chem 7: 02/09/18 07:04 02/09/18 07:04 Labs: Abnormal Lab Results - Last 24 Hours (Table) 02/08/18 02/09/18 02/09/18 Range/Units 11:15 07:04 07:04 RBC 3.00 L (4.30-5.90) m/uL Hgb 10.6 L (13.0-17.5) gm/dL Hct 31.3 L (39.0-53.0) % MCV 104.4 H (80.0-100.0) fL MCH 35.2 H (25.0-35.0) pg RDW 16.1 H (11.5-15.5) % Plt Count 112 L (150-450) k/uL Sodium 136 L (137-145) mmol/L Potassium 3.3 L (3.5-5.1) mmol/L BUN 3 L (9-20) mg/dL Creatinine 0.37 L (0.66-1.25) mg/dL POC Glucose (mg/dL) 107 H (75-99) mg/dL Calcium 8.3 L (8.4-10.2) mg/dL AST 127 H (17-59) U/L Alkaline Phosphatase 639 H (38-126) U/L Total Protein 5.9 L (6.3-8.2) g/dL Albumin 2.7 L (3.5-5.0) g/dL Microbiology - Last 24 Hours (Table) 02/08/18 07:45 Blood Culture - Preliminary Blood No Growth after 24 hours 02/08/18 07:19 Blood Culture - Preliminary Blood No Growth after 24 hours 02/06/18 17:25 Blood Culture Gram Stain - Final Blood Blood Culture - Final Escherichia coli 02/06/18 17:25 Blood Culture - Final Blood Assessment and Plan Assessment: Assessment and Plan 1. Partial bowel obstruction: KUB shows non obstructive bowel gas pattern. CT shows rectal mass 10 x 4.5 cm consistent with tumor. Aggressive bowel regimen with Docusate 100 mg PO BID. Protonix 40 mg IV QD. CLD and advance as per GI. GI and Rad-Onc consulted, recommendation for rectal stent vs. palliative radiation (seems more likely). FU GI, Rad-Onc 2. Tonic-clonic seizure episode: As per ED reports, none since. Possibly related to EtOH abuse. CT brain shows no acute intracranial processes. MRI brain shows tiny pinpoint areas of enhancement (artifact vs. metastases). Neurology consulted - recommend EEG. Seizure precautions. Neurochecks. Ativan IV PRN for seizures. FU Neurology, EEG results 3. Colon CA: with metastatic disease to the lung and liver, stage IV. Diagnosed in 2016, biopsy proven. s/p Avastin and FOLFOX x 11 cycles 05/2017, switched to Xeloda 12/2017. FU Dr. Cancino outPT 4. E. Coli bacteremia: Likely GI source. BCx 02/06 shows E. coli +. UCx negative. Repeat BCx 02/08 preliminary negative at 24H. Continue Cefepime 2g IV Q8H, Flagyl 500 mg PO TID. Tylenol 650 mg PO Q6 PRN for fever. Hydrate with NS 120 ml/h. Will follow up with ID for final Abx recommendations for DC planning. FU BCx final 5. EtOH abuse: CIWA protocol. Ativan IV PRN for withdrawal symptoms. Continue Thiamine 100 mg IV QD. 6. Anemia: Hg 10.6 Hct 31.3 MCV 104.4. Macrocytic, chemo induced vs. EtOH abuse. Iron studies consistent with Anemia of Chronic disease. Transfuse if Hg < 7.0. FU B12/Folate 7. Hypokalemia: K 3.3. Replace as per protocol. Telemetry monitoring. FU Nephrology, renin and aldosterone levels 8. Thrombocytopenia: Plt 112. Likely from metastatic disease to the liver. Has h /o EtOH abuse. Watch as patient is on Protonix. No Heparin products. FU Acute Hep panel 19. Transaminitis: AST 127 ALK P 575.8. Likely from metastatic disease to the liver. Has h/o EtOH abuse. FU Acute Hep panel 10. Hypocalcemia: Ca 8.3. Corrected for Albumin - Ca 9.3 (within normal limits). 11. DVT/GI Prophylaxis: Protonix 40 mg IV QD. SCD boots only. Patient is currently on CLD, will advance as tolerated. Plans for palliative radiation to decrease size of rectal tumor. Pending EEG and Neurology follow up for possible seizure like activity. On Cefepime and Flagyl for E. coli bacteremia, will discuss with ID regarding length and choice of Abx.
[2018-02-09] MEDS: POTASSIUM CHLORIDE ER 20 MEQ TAB.ER PO SCH ×2 (13:14→14:49)
--- NOTE | 2018-02-09 21:17 | PN ---
PROGRESS NOTE Patient is seen for followup for hypokalemia. His serum potassium had improved to 3.9. The patient did not get any replacement yesterday. Today it is down to 3.3. He denies any diarrhea. Overall, he states he is feeling better. I do not see the serum aldosterone and renin back yet. It looks like it was drawn on 02/07/2018. Patient is receiving radiation therapy. EXAMINATION: Currently, he is comfortable, awake, not in any acute distress. Blood pressure this morning 140/92, heart rate 98 per minute. He is afebrile. Examination of the heart: S1, S2. Examination of the lungs: Bilateral breath sounds are heard. Abdomen is soft, nontender. Exam of lower extremities shows no significant edema. [employer] exam is grossly intact. LABS: Hemoglobin 10.6, sodium of 136, potassium 3.3, chloride 103, BUN 3, serum creatinine 0.37. ASSESSMENT: 1. Hypokalemia. The patient is currently not on any diuretics and renal aldosterone levels are pending. He may have had some GI wasting. Random urine sodium was not significantly elevated to suggest renal tubular potassium wasting. I will replace his potassium for today and start him on Aldactone. 2. Colon mass and colon cancer with some degree of bowel obstruction. Currently maintained on palliative radiation therapy. 3. Gram-negative bacteremia, most likely related to the colon mass. His urine was completely clear. PLAN: Replace potassium. Start Aldactone and maintain high potassium intake in foods. MMODL / IJN: [id number] /
[2018-02-10] MEDS: metroNIDAZOLE 500 MG TAB PO SCH ×4 (00:19→22:55)
[2018-02-10] MEDS: NYSTATIN 100,000 UNIT/ML SUSP 500,000 UNIT/5 ML CUP PO SCH ×5 (00:19→22:56)
[2018-02-10] MEDS: SODIUM CHLORIDE 0.9% 1,000 ML IV SCH ×2 (00:22→11:16)
[2018-02-10] MEDS: HYDROcodone/APAP 10-325MG 1 EACH TAB PO PRN ×4 (04:55→22:55)
[2018-02-10] MEDS: CEFEPIME 2 GM in SODIUM CHLORIDE 0.9% 50 ML IVPB SCH ×3 (05:23→22:56)
[2018-02-10] MEDS: PANTOPRAZOLE 40 MG/10 ML VIAL IV SCH (07:41)
[2018-02-10] MEDS: SPIRONOLACTONE 25 MG TAB PO SCH (07:41)
[2018-02-10] MEDS: DOCUSATE 100 MG CAP PO SCH ×2 (07:41→22:55)
--- NOTE | 2018-02-10 10:22 | P.PN ---
Subjective Progress Note Date: 02/10/18 Principal diagnosis: partial bowel obstruction Patient was seen and examined. No acute events overnight. Underwent radiation treatment yesterday. Underwent radiation treatment this morning as well. Patient reports loose stools, continued since admission. He denies any abdominal pain, nausea, vomiting, chest pain, shortness of breath, palpitations. Tolerating full liquid diet this morning. Able to eat oatmeal. Objective - Vital Signs Vital signs: Vital Signs Temp 98.3 F 02/10/18 06:14 Pulse 94 02/10/18 06:14 Resp 18 02/10/18 06:14 BP 130/88 02/10/18 06:14 Pulse Ox 98 02/09/18 20:30 Intake & Output 02/09/18 02/10/18 02/10/18 18:59 06:59 18:59 Intake Total 298 2338 Balance 298 2338 Weight 60.5 kg Intake: IV 1380 Sodium Chloride 0.9% 1, 1380 000 ml @ 120 mls/hr IV . Q8H20M [facility] Rx#:[id number] Oral 298 958 Other: Voiding Method Toilet Toilet Toilet # Voids 2 - Exam General: [non toxic], [no distress], [appears at stated age] Derm: [warm], [dry] Head: [atraumatic], [normocephalic], [symmetric] Eyes: [EOMI], [no lid lag], [anicteric sclera] Mouth: [no lip lesion], [mucus membranes moist] Cardiovascular: [S1S2 reg], [no murmur], [R chest port] Lungs: [CTA bilateral], [no rhonchi, no rales] , [no accessory muscle use] Abdominal: [soft], [ nontender to palpation], [no guarding], [no appreciable organomegaly] Ext: [no gross muscle atrophy], [1+ BL LE edema], [no contractures] Psych: [Alert], [oriented], [appropriate affect] - Labs CBC & Chem 7: 02/09/18 07:04 02/09/18 07:04 Labs: Abnormal Lab Results - Last 24 Hours (Table) 02/09/18 02/09/18 Range/Units 07:04 07:04 Iron 30 L (65-175) ug/dL TIBC 187 L (228-460) ug/dL Ferritin 575.8 H (22.0-322.0) ng/mL RBC Folate 899 H (280 - 791) ng/mL Microbiology - Last 24 Hours (Table) 02/06/18 17:25 Blood Culture Gram Stain - Final Blood Blood Culture - Final Escherichia coli 02/08/18 07:45 Blood Culture - Preliminary Blood No Growth after 24 hours 02/08/18 07:19 Blood Culture - Preliminary Blood No Growth after 24 hours Assessment and Plan Assessment: Assessment and Plan 1. Partial bowel obstruction: KUB shows non obstructive bowel gas pattern. CT shows rectal mass 10 x 4.5 cm consistent with tumor. Aggressive bowel regimen with Docusate 100 mg PO BID. Protonix 40 mg IV QD. Full liquid diet and advance as per GI. GI and Rad-Onc consulted, recommendation for rectal stent vs. palliative radiation. FU GI, Rad-Onc 2. Tonic-clonic seizure episode: As per ED reports, none since. Possibly related to EtOH abuse. CT brain shows no acute intracranial processes. MRI brain shows tiny pinpoint areas of enhancement (artifact vs. metastases). Neurology consulted - recommend EEG. Seizure precautions. Neurochecks. Ativan IV PRN for seizures. FU Neurology, EEG results 3. Colon CA: with metastatic disease to the lung and liver, stage IV. Diagnosed in 2016, biopsy proven. s/p Avastin and FOLFOX x 11 cycles 05/2017, switched to Xeloda 12/2017. FU Dr. Cancino outPT 4. E. Coli bacteremia: Likely GI source. BCx 02/06 shows E. coli +. UCx negative. Repeat BCx 02/08 preliminary negative at 48H. Continue Cefepime 2g IV Q8H, Flagyl 500 mg PO TID. Tylenol 650 mg PO Q6 PRN for fever. Hydrate with NS 120 ml/h. Will follow up with ID for final Abx recommendations for DC planning. FU BCx final 5. EtOH abuse: CIIN protocol. Ativan IV PRN for withdrawal symptoms. Continue Thiamine 100 mg IV QD. 6. Anemia: Hg 10.6 Hct 31.3 MCV 104.4. Macrocytic, chemo induced vs. EtOH abuse. Iron studies consistent with Anemia of Chronic disease. Folate within normal limits. Transfuse if Hg < 7.0. FU B12 7. Hypokalemia: K 3.3. Replace as per protocol. Likely from GI wasting. Telemetry monitoring. Continue Aldactone 25 mg PO QD. FU Nephrology, renin and aldosterone levels 8. Thrombocytopenia: Plt 112. Likely from metastatic disease to the liver. Has h /o EtOH abuse. Watch as patient is on Protonix. No Heparin products. FU Acute Hep panel 19. Transaminitis: AST 127 ALK P 575.8. Likely from metastatic disease to the liver. Has h/o EtOH abuse. FU Acute Hep panel 10. Hypocalcemia: Ca 8.3. Corrected for Albumin - Ca 9.3 (within normal limits). 11. DVT/GI Prophylaxis: Protonix 40 mg IV QD. SCD boots only. Patient is currently on Full liquid diet, will advance as tolerated. Plans for palliative radiation to decrease size of rectal tumor (already underwent 2 sessions). Pending EEG read and Neurology follow up for possible seizure like activity. On Cefepime and Flagyl for E. coli bacteremia, will discuss with ID regarding length and choice of Abx.
[2018-02-10 10:43] LABS: ALT 46 U/L (21-72); AST 112 U/L (17-59); Albumin 2.9 g/dL (3.5-5.0); Alkaline Phosphatase 647 U/L (38-126); Anion Gap 10 mmol/L; Blood Urea Nitrogen 6 mg/dL (9-20); Calcium 8.8 mg/dL (8.4-10.2); Carbon Dioxide 23 mmol/L (22-30); Chloride 103 mmol/L (98-107); Glucose 174 mg/dL (74-99); Potassium 4.2 mmol/L (3.5-5.1); Sodium 136 mmol/L (137-145); Total Protein 6.2 g/dL (6.3-8.2)
[2018-02-10 10:55] LABS: Anisocytosis Slight; Basophils % (A) 1 %; Eosinophils # (A) 0.1 k/uL (0-0.7); Eosinophils % (A) 1 %; HCT 33.3 % (39.0-53.0); HGB 10.7 gm/dL (13.0-17.5); Lymphocytes # (A) 0.8 k/uL (1.0-4.8); Lymphocytes % (A) 9 %; MCH 34.8 pg (25.0-35.0); MCHC 32.1 g/dL (31.0-37.0); MCV 108.6 fL (80.0-100.0); Macrocytosis Marked; Mean Platelet Volume 8.2; Monocytes # (A) 0.9 k/uL (0-1.0); Monocytes % (A) 10 %; Neutrophils # (A) 6.4 k/uL (1.3-7.7); Neutrophils % (A) 76 %; RBC 3.07 m/uL (4.30-5.90); RDW 16.2 % (11.5-15.5); WBC 8.4 k/uL (3.8-10.6)
[2018-02-10 10:58] LABS: Platelet Count 184 k/uL (150-450)
[2018-02-10] MEDS: THIAMINE 100 MG TAB PO SCH ×2 (11:18→15:55)
[2018-02-10 11:20] LABS: Hepatitis A Antibody IgM Non-Reactive (Non-Reactive); Hepatitis B Core IgM Non-Reactive (Non-Reactive)
--- NOTE | 2018-02-10 17:22 | P.PN ---
Subjective Progress Note Date: 02/10/18 Principal diagnosis: Rectal bleeding, metastatic rectal adenocarcinoma Pt seen in f/u, he is still having rectal bleeding and random sharp rectal pain , not long in duration but intense when it happens, he is ambulating in the halls, he has started radiation. Objective - Vital Signs Vital signs: Vital Signs Temp 98 F 02/10/18 12:02 Pulse 95 02/10/18 12:02 Resp 20 02/10/18 12:02 BP 123/81 02/10/18 12:02 Pulse Ox 99 02/10/18 12:02 Intake & Output 02/09/18 02/10/18 02/10/18 18:59 06:59 18:59 Intake Total 298 2338 1010 Balance 298 2338 1010 Weight 60.5 kg Intake: IV 1380 960 Sodium Chloride 0.9% 1, 1380 960 000 ml @ 120 mls/hr IV . Q8H20M [facility] Rx#:[id number] Intake, IV Titration 50 Amount Cefepime 2 gm In Sodium 50 Chloride 0.9% 50 ml @ 100 mls/hr IVPB Q8H [facility] Rx#: [id number] Oral 298 958 Other: Voiding Method Toilet Toilet Toilet # Voids 2 - Exam WDWN, ambulating independently, NAD, A&O x 3 - Labs CBC & Chem 7: 02/10/18 10:00 02/10/18 10:00 Labs: Abnormal Lab Results - Last 24 Hours (Table) 02/09/18 02/09/18 02/10/18 Range/Units 07:04 07:04 10:00 RBC 3.07 L (4.30-5.90) m/uL Hgb 10.7 L (13.0-17.5) gm/dL Hct 33.3 L (39.0-53.0) % MCV 108.6 H (80.0-100.0) fL RDW 16.2 H (11.5-15.5) % Lymphocytes # 0.8 L (1.0-4.8) k/uL Sodium (137-145) mmol/L BUN (9-20) mg/dL Creatinine (0.66-1.25) mg/dL Glucose (74-99) mg/dL AST (17-59) U/L Alkaline Phosphatase (38-126) U/L Total Protein (6.3-8.2) g/dL Albumin (3.5-5.0) g/dL Vitamin B12 1182.0 H (200.0-944.0) pg/mL RBC Folate 899 H (280 - 791) ng/mL 02/10/18 Range/Units 10:00 RBC (4.30-5.90) m/uL Hgb (13.0-17.5) gm/dL Hct (39.0-53.0) % MCV (80.0-100.0) fL RDW (11.5-15.5) % Lymphocytes # (1.0-4.8) k/uL Sodium 136 L (137-145) mmol/L BUN 6 L (9-20) mg/dL Creatinine 0.44 L (0.66-1.25) mg/dL Glucose 174 H (74-99) mg/dL AST 112 H (17-59) U/L Alkaline Phosphatase 647 H (38-126) U/L Total Protein 6.2 L (6.3-8.2) g/dL Albumin 2.9 L (3.5-5.0) g/dL Vitamin B12 (200.0-944.0) pg/mL RBC Folate (280 - 791) ng/mL Microbiology - Last 24 Hours (Table) 02/08/18 07:45 Blood Culture - Preliminary Blood No Growth after 48 hours 02/08/18 07:19 Blood Culture - Preliminary Blood No Growth after 48 hours 02/06/18 17:25 Blood Culture Gram Stain - Final Blood Blood Culture - Final Escherichia coli Assessment and Plan (1) Lower GI hemorrhage Narrative/Plan: Secondary to malignancy, pt has started palliative radiation for symptom control and to help reduce the risk of obstruction Current Visit: Yes Status: Acute Priority: High Code(s): K92.2 - GASTROINTESTINAL HEMORRHAGE, UNSPECIFIED SNOMED Code(s): 06258520 (2) Rectal cancer metastasized to liver Narrative/Plan: Pt has started symptom palliative radiation. 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 He is aware and understands he needs to medicinal plant picker. He can resume his xeloda sched after discharge Current Visit: Yes Status: Acute Priority: High Code(s): C20 - MALIGNANT NEOPLASM OF RECTUM; C78.7 - SECONDARY MALIG NEOPLASM OF LIVER AND INTRAHEPATIC BILE DUCT SNOMED Code(s): 593206241
--- NOTE | 2018-02-10 21:52 | P.PN ---
Subjective Progress Note Date: 02/10/18 This patient is a 57-year-old male who was seen in neurology consultation for evaluation of new onset seizure activity. Patient has a history of metastatic colon cancer and was admitted to hospital after having a possible generalized tonic-clonic seizure. Patient was seen in neurology consultation yesterday and it was recommended for the patient to undergo an MRI of the brain with and without gadolinium for further evaluation to rule out possibility of intracranial lesion secondary to his colon cancer. Patient underwent MRI of the brain with and without gadolinium for further evaluation. There was evidence on this MRI of a very small area of enhancement involving both temporal lobes anteriorly. It was recommended by the radiologist that this may represent artifact versus small enhancing lesions. It was recommended to have a repeat MRI of the brain done with and without gadolinium in 3 months. We discussed this today with the patient in detail. He did undergo routine EEG which was once again reviewed and is within normal limits with no evidence of any epileptiform discharges. We have recommended the patient to be monitored closely for any further breakthrough seizure-like events. He has been evaluated by radiation oncology and is to start on radiation therapy for his underlying cancer over the next several weeks. He is awaiting possible discharge home tomorrow to follow-up as outpatient for ongoing radiation therapies. We have discussed all of his findings today with the patient in detail. He is neurologically stable for discharge tomorrow morning and should follow-up in the outpatient neurology clinic in 3-4 weeks. Patient is doing fairly well today with no new findings compared to yesterday. Neurological examination remains stable. We will continue close neurological follow-up with this patient during this admission. Objective - Vital Signs Vital signs: Vital Signs Temp 98 F 02/10/18 12:02 Pulse 95 02/10/18 12:02 Resp 20 02/10/18 12:02 BP 123/81 02/10/18 12:02 Pulse Ox 99 02/10/18 12:02 Intake & Output 02/10/18 02/10/18 02/11/18 06:59 18:59 06:59 Intake Total 2338 1010 Balance 2338 1010 Weight 60.5 kg Intake: IV 1380 960 Sodium Chloride 0.9% 1, 1380 960 000 ml @ 120 mls/hr IV . Q8H20M [facility] Rx#:[id number] Intake, IV Titration 50 Amount Cefepime 2 gm In Sodium 50 Chloride 0.9% 50 ml @ 100 mls/hr IVPB Q8H [facility] Rx#: [id number] Oral 958 Other: Voiding Method Toilet Toilet - Exam Physical examination: PHYSICAL EXAMINATION: Patient is resting comfortably in bed. VITAL SIGNS: Blood pressure is [123/81]. Heart rate is [95]. Respiration is [20] . Temperature is [98.0]. HEENT: Head is atraumatic, neck is supple, there were no carotid bruits. CHEST: Lungs are clear to auscultation and percussion. CARDIAC: S1, S2 normal rate and rhythm. There is no murmur. ABDOMEN: Soft and nontender. Bowel sounds are present. EXTREMITIES: There is no pedal edema. Peripheral pulses are present. Neurological examination: Patient's neurological examination is unchanged from yesterday. - Labs CBC & Chem 7: 02/10/18 10:00 02/10/18 10:00 Labs: Abnormal Lab Results - Last 24 Hours (Table) 02/09/18 02/09/18 02/10/18 Range/Units 07:04 07:04 10:00 RBC 3.07 L (4.30-5.90) m/uL Hgb 10.7 L (13.0-17.5) gm/dL Hct 33.3 L (39.0-53.0) % MCV 108.6 H (80.0-100.0) fL RDW 16.2 H (11.5-15.5) % Lymphocytes # 0.8 L (1.0-4.8) k/uL Sodium (137-145) mmol/L BUN (9-20) mg/dL Creatinine (0.66-1.25) mg/dL Glucose (74-99) mg/dL AST (17-59) U/L Alkaline Phosphatase (38-126) U/L Total Protein (6.3-8.2) g/dL Albumin (3.5-5.0) g/dL Vitamin B12 1182.0 H (200.0-944.0) pg/mL RBC Folate 899 H (280 - 791) ng/mL 02/10/18 Range/Units 10:00 RBC (4.30-5.90) m/uL Hgb (13.0-17.5) gm/dL Hct (39.0-53.0) % MCV (80.0-100.0) fL RDW (11.5-15.5) % Lymphocytes # (1.0-4.8) k/uL Sodium 136 L (137-145) mmol/L BUN 6 L (9-20) mg/dL Creatinine 0.44 L (0.66-1.25) mg/dL Glucose 174 H (74-99) mg/dL AST 112 H (17-59) U/L Alkaline Phosphatase 647 H (38-126) U/L Total Protein 6.2 L (6.3-8.2) g/dL Albumin 2.9 L (3.5-5.0) g/dL Vitamin B12 (200.0-944.0) pg/mL RBC Folate (280 - 791) ng/mL Microbiology - Last 24 Hours (Table) 02/08/18 07:45 Blood Culture - Preliminary Blood No Growth after 48 hours 02/08/18 07:19 Blood Culture - Preliminary Blood No Growth after 48 hours Assessment and Plan (1) New onset seizure Current Visit: Yes Status: Acute Code(s): R56.9 - UNSPECIFIED CONVULSIONS SNOMED Code(s): 81483092 (2) Metastatic colon cancer to liver Current Visit: Yes Status: Acute Code(s): C18.9 - MALIGNANT NEOPLASM OF COLON, UNSPECIFIED; C78.7 - SECONDARY MALIG NEOPLASM OF LIVER AND INTRAHEPATIC BILE DUCT SNOMED Code(s): 026180013 (3) Lower GI hemorrhage Current Visit: Yes Status: Acute Priority: High Code(s): K92.2 - GASTROINTESTINAL HEMORRHAGE, UNSPECIFIED SNOMED Code(s): 42342720 (4) Thrush Current Visit: Yes Status: Acute Code(s): B37.0 - CANDIDAL STOMATITIS SNOMED Code(s): 52141510 Plan: This patient is a 57-year-old right-handed white male who was admitted to hospital with rectal pain and rectal bleeding. The patient has a history of rectal bleeding secondary to metastatic rectal adenocarcinoma. He has been followed in the oncology clinic for this condition. Patient also had multiple electrolyte abnormalities on evaluation in the emergency room. Patient was in the triage area of the ER sitting in a wheelchair when he had a witnessed seizure event. The seizure lasted 1-2 minutes in duration. He was postictal following this event. He was given some Ativan in the ER and admitted to the hospital. Patient is a poor historian but states he has been having symptoms of seizure-like events off-and-on with no clear etiology. The patient was seen in the ER by Dr. Florentino. A computed tomography scan of the brain as noted was ordered and came back negative for any acute findings of stroke or hemorrhage. Patient states he did have 1 seizure in his lifetime about 20 years ago which is possibly due to severe hypoglycemia and dehydration. At this time his neurological examination is nonfocal. We have recommended he undergo an MRI of the brain with and without gadolinium to rule out metastatic lesion to the brain. We did review the MRI of the brain results today with the patient in detail. There are 2 areas of very small enhancement involving the temporal lobes bilaterally. Exact etiology of these 2 lesions is still unclear as per the radiology report. They recommended a repeat MRI of the brain to be done in 3 months. We have conveyed this to the patient as well as to his admitting staff that they should be arranged for him as outpatient in 3 months. Patient underwent routine EEG which is reviewed and is negative for any evidence of epileptiform discharges. He is being considered for discharge home tomorrow morning and should follow-up in the outpatient neurology clinic in 3-4 weeks. We will await further recommendations from multiple specialists evaluating the patient during this admission. We have discussed all of our findings today in detail with the patient. All of his questions are answered. We will continue close neurological follow-up with this patient in the intensive care unit. This patient's overall prognosis at this time remains guarded.
--- NOTE | 2018-02-10 22:22 | PN ---
PROGRESS NOTE Patient is seen for followup for hypokalemia, which is now resolved. Serum potassium is up to 4.2 today. Patient is maintained on radiation therapy for the colorectal mass. He denies any significant complaints. The patient has had diarrhea on and off. PHYSICAL EXAMINATION: Blood pressure is 130/88, heart rate 94 per minute. He is afebrile. Examination of the heart S1, S2. Examination of the lungs bilateral breath sounds are heard. Abdomen is soft, nontender. Exam of the lower extremities shows no evidence of edema. [employer] exam is grossly intact. LAB: Show sodium 136, potassium 4.2, BUN 6, serum creatinine 0.44. ASSESSMENT: 1. Hypokalemia related to decreased oral intake as well as possibly some gastrointestinal fluid loss from ongoing diarrhea, status post replacement. Aldosterone level was less than 3. There is no evidence of underlying hyperaldosteronism. Continue to monitor the serum potassium and replace aggressively. The patient was magnesium replete. 2. Colon cancer with colorectal mass, currently undergoing radiation therapy. The patient has been on chemo. 3. Gram-negative bacteremia, most likely related to the underlying colon mass. No evidence of pyuria on the UA. Currently maintained on antibiotics and doing well. White count is 8.4, and patient is afebrile. Repeat blood cultures have consistently been negative. PLAN: Monitor electrolytes as outpatient. Replace potassium aggressively and the patient is stable for discharge from Nephrology standpoint. MMODL / IJN: [id number] /
[2018-02-10 23:08] VITALS: RESP 18
[2018-02-11] MEDS: SODIUM CHLORIDE 0.9% 1,000 ML IV SCH ×2 (03:46→09:25)
[2018-02-11] MEDS: CEFEPIME 2 GM in SODIUM CHLORIDE 0.9% 50 ML IVPB SCH (05:08)
[2018-02-11] MEDS: HYDROcodone/APAP 10-325MG 1 EACH TAB PO PRN ×2 (06:16→11:11)
--- NOTE | 2018-02-11 08:12 | P.DS ---
Providers Date of admission: 02/06/18 19:28 Expected date of discharge: 02/11/18 Attending physician: Ángel Herbert MD Consults: 02/06/18 19:29 Consult Physician Urgent Consulting Provider: Yaneli Granados Consult Reason/Comments: Oncological care Do you want consulting provider notified?: Already Contacted 02/06/18 19:55 Consult Physician Urgent Consulting Provider: Linda Churchill Consult Reason/Comments: seizure Do you want consulting provider notified?: Yes 02/06/18 20:26 Consult Physician Routine Consulting Provider: Celso Coffey Consult Reason/Comments: hyponatremia Do you want consulting provider notified?: Yes, Notify in am 02/06/18 20:33 Consult Physician Routine Consulting Provider: Vanessa Tate Consult Reason/Comments: antibiotic guidance Do you want consulting provider notified?: Yes 02/07/18 17:25 Consult Physician Urgent Consulting Provider: Bon Ramires Consult Reason/Comments: possible radiology to rectal mass Do you want consulting provider notified?: Yes Primary care physician: Stated None - Discharge Diagnosis(es) (1) Partial bowel obstruction Current Visit: Yes Status: Acute (2) Tonic clonic convulsion Current Visit: Yes Status: Acute (3) E coli bacteremia Current Visit: Yes Status: Acute (4) Alcohol abuse Current Visit: Yes Status: Acute (5) Anemia Current Visit: Yes Status: Acute (6) Thrombocytopenia Current Visit: Yes Status: Acute (7) Transaminitis Current Visit: Yes Status: Acute (8) Hypokalemia Current Visit: No Status: Acute (9) Metastatic colon cancer to liver Current Visit: No Status: Acute Priority: High Hospital Course: 57-year-old male with a past medical history of metastatic colon adenocarcinoma with metastasis to liver and lung who is post 11 cycles of chemotherapy with FOLFOX and Avastin who presents to the ER with chief complaint of moderate rectal pain, dark melanotic stools, increasing fatigue and weakness, decreased appetite, nausea with subjective fevers chills or night sweats. Apparently the patient was noted to have a tonic-clonic seizure while in triage that apparently lasted less than a minute, the patient was noted to be post ictal but was able to answer questions. In the ED, patient had a comprehensive workup including CT of the head that was negative for any acute intracranial pathology. Patient was noted to have a leukocytosis of 12.7, hemoglobin of 9.9, hematocrit of 30.4, platelet of 141. His INR was 3. His sodium was 131 and potassium was 2.7. He had an elevated AST of 204 and an alkaline phosphatase of 1048. He was Hemoccult positive. He had a T-max of 100.9 Fahrenheit. With regard to his rectal pain, KUB was done which showed a nonobstructive bowel gas pattern. CT of the abdomen and pelvis showed a rectal mass that is 10 x 4.5 cm, consistent with tumor. Patient was placed on an aggressive bowel regimen with docusate 100 mg by mouth twice a day and Protonix 40 mg IV daily. Patient was initially started on a clear liquid diet and transition to a full liquid diet. Gastroenterology and radiation oncology was consulted at this time and recommendation was made for palliative radiation rather than a rectal stent. Patient received 3 radiation sessions prior to discharge. He had daily bowel movements as well. With regard to his tonic-clonic seizure episode, this was thought to be possibly related to his alcohol abuse. CT of the brain showed no acute intracranial process. MRI of the brain is ordered which showed tiny pinpoint areas of enhancement which is thought to be artifact versus metastasis. Neurology was consulted at this time and recommended an EEG, which showed no lip deformed discharges. Neurology recommended that the patient follow-up with an MRI of the brain with gadolinium contrast in 3 months. Patient was not placed on any antiepileptic medication. He had no further episodes during his hospitalizations. With regard to his colon cancer, this is metastatic disease to the lung and liver, stage IV. This was diagnosed in 2017 and is biopsy-proven. He is status post FOLFOX and Avastin, 11 cycles starting May 2017 which was switched to Xeloda on December 2017. patient was advised to follow-up with his oncologist Dr. Cancino. Patient was known to have a positive blood culture for E. coli during his hospitalization. the source was thought to be secondary to the rectal mass. Patient was initially started on cefepime IV and Flagyl by mouth. He was hydrated with normal saline. His repeat blood cultures were preliminary negative at the time of discharge. Patient was hemodynamically stable throughout his hospitalization. With regard to his alcohol abuse, patient was placed on CIWA protocol. Patient was chronically hypokalemic throughout his hospitalization. His potassium was continuously replaced. Patient was started on Aldactone 25 mg by mouth daily. Nephrology was consulted, thought this was likely secondary to GI wasting. Patient was known to be thrombocytopenic throughout his hospitalization. His platelet count was 112 at the time of discharge. This is thought to be likely secondary to metastatic disease to the liver. Patient was seen and examined prior to discharge. Patient reports having a bowel movement this morning. He denies any melena or blood in his stool. He describes his stool as loose but denies diarrhea. He denies abdominal pain. He denies nausea or vomiting. He is tolerating his diet well. He is looking forward to going home. General: [non toxic], [no distress], [appears at stated age] Derm: [warm], [dry] Head: [atraumatic], [normocephalic], [symmetric] Eyes: [EOMI], [no lid lag], [anicteric sclera] Mouth: [no lip lesion], [mucus membranes moist] Cardiovascular: [S1S2 reg], [no murmur], [R chest port] Lungs: [CTA bilateral], [no rhonchi, no rales] , [no accessory muscle use] Abdominal: [soft], [ nontender to palpation], [no guarding], [no appreciable organomegaly] Ext: [no gross muscle atrophy], [no edema], [no contractures] Psych: [Alert], [oriented], [appropriate affect] Assessment and Plan 1. Partial bowel obstruction: KUB shows non obstructive bowel gas pattern. CT shows rectal mass 10 x 4.5 cm consistent with tumor. Aggressive bowel regimen with Docusate 100 mg PO BID. Protonix 40 mg IV QD. Full liquid diet and advance as per GI. GI and Rad-Onc consulted, recommendation for rectal stent vs. palliative radiation. Advised to continue Full liquid diet at home with bowel regimen, FU GI and continue radiation treatments. 2. Tonic-clonic seizure episode: As per ED reports, none since. Possibly related to EtOH abuse. CT brain shows no acute intracranial processes. MRI brain shows tiny pinpoint areas of enhancement (artifact vs. metastases). Neurology consulted - recommend EEG. Seizure precautions. Neurochecks. Ativan IV PRN for seizures. Discussed with Dr. Churchill on 02/10, recommend MRI brain w/ gal in 3 months, EEG shows no seizure like activity. 3. Colon CA: with metastatic disease to the lung and liver, stage IV. Diagnosed in 2017, biopsy proven. s/p Avastin and FOLFOX x 11 cycles 05/2017, switched to Xeloda 12/2017. FU Dr. Cancino outPT 4. E. Coli bacteremia: Likely GI source. BCx 02/06 shows E. coli +. UCx negative. Repeat BCx 02/08 preliminary negative at 48H. Lactic acid 14.8 to 0.9 on 02/06. Continue Cefepime 2g IV Q8H, Flagyl 500 mg PO TID. Tylenol 650 mg PO Q6 PRN for fever. Hydrate with NS 120 ml/h. Will DC to complete total 14 days of antibiotics with Augmentin PO. FU BCx final 5. EtOH abuse: CIWA protocol. Ativan IV PRN for withdrawal symptoms. Continue Thiamine 100 mg IV QD. 6. Anemia: Hg 10.7 Hct 33.3 MCV 108.6. Macrocytic, chemo induced vs. EtOH abuse. Iron studies consistent with Anemia of Chronic disease. Folate and B12 within normal limits. Transfuse if Hg < 7.0. 7. Hypokalemia: K 4.2. Replace as per protocol. Likely from GI wasting. Telemetry monitoring. Continue Aldactone 25 mg PO QD. FU Nephrology, renin and aldosterone levels 8. Thrombocytopenia: Plt 112. Likely from metastatic disease to the liver. Has h /o EtOH abuse. Watch as patient is on Protonix. No Heparin products. Acute Hep panel negative. 9. Transaminitis: AST 127 ALK P 575.8. Likely from metastatic disease to the liver. Has h/o EtOH abuse. Acute Hep panel negative. 10. DVT/GI Prophylaxis: Protonix 40 mg IV QD. SCD boots only. Patient is clear from a neurology standpoint. He will receive his radiation session this morning prior to discharge. Patient has appointments to return back for further radiation treatments. He has made arrangements to go to the [facility] in the meantime. He will need a PCP. He will need adequate follow-up with Gastroenterology, Neurology, Oncology and Radiation oncology. Pertinent Studies: CT brain Abdominal x-ray Chest x-ray CT of the abdomen and pelvis MRI of the brain EEG Procedures: none Patient Condition at Discharge: Stable Plan - Discharge Summary Discharge Rx Participant: Yes New Discharge Prescriptions: New Amoxicillin/Potassium Clav [Augmentin 875-125 Tablet] 1 tab PO Q12HR #22 tab Docusate [Colace] 100 mg PO BID #60 cap Spironolactone [Aldactone] 25 mg PO DAILY #30 tab Continue HYDROcodone/APAP 5-325MG [[place] 5-325] 1 tab PO Q6H PRN PRN Reason: Pain amLODIPine [Norvasc] 10 mg PO HS Albuterol Inhaler [Ventolin Hfa Inhaler] 1 - 2 puff INHALATION RT-Q6H PRN PRN Reason: Shortness Of Breath Acetaminophen [Tylenol] 650 mg PO Q4H PRN PRN Reason: Pain Or Fever > 100.5 Discharge Medication List HYDROcodone/APAP 5-325MG [[place] 5-325] 1 tab PO Q6H PRN 10/05/17 [History] amLODIPine [Norvasc] 10 mg PO HS 11/13/17 [History] Albuterol Inhaler [Ventolin Hfa Inhaler] 1 - 2 puff INHALATION RT-Q6H PRN [History] Acetaminophen [Tylenol] 650 mg PO Q4H PRN 02/06/18 [History] Amoxicillin/Potassium Clav [Augmentin 875-125 Tablet] 1 tab PO Q12HR #22 tab 02/18 [Rx] Docusate [Colace] 100 mg PO BID #60 cap 02/10/18 [Rx] Spironolactone [Aldactone] 25 mg PO DAILY #30 tab 02/10/18 [Rx] Follow up Appointment(s)/Referral(s): Linda Churchill MD [STAFF PHYSICIAN] - 1 Week Darby Calloway MD [STAFF PHYSICIAN] - 1 Week None,Stated [Primary Care Provider] - 1-2 days Gee Cancino MD [STAFF PHYSICIAN] - 1 Week Patient Instructions/Handouts: Gastrointestinal (GI) Soft Diet (GEN) Activity/Diet/Wound Care/Special Instructions: Diet: GI soft Please follow up with your primary care provider within 1-2 days of discharge. Note to primary care provider: Mr. Torres's MRI brain was abnormal and recommended a follow up within 3 months. Please obtain a MRI brain with gal contrast in 3 months of his discharge (02/10/2018). Please follow up with your Neurologist, Oncologist and Ct Mri Technologist within 1 week of discharge. Please take all medications as advised. Your radiation appointments at [facility] is as follows; 02/12/2018 - at 11:45AM You will be given further information regarding future radiation sessions when you attend your follow up tomorrow. Discharge Disposition: HOME SELF-CARE Pending Studies Pending Results: MRI brain in 3 months with contrast.
[2018-02-11 09:07] VITALS: BP 137/80; PULSE 83; TEMP 98.1
[2018-02-11] MEDS: metroNIDAZOLE 500 MG TAB PO SCH (09:25)
[2018-02-11] MEDS: DOCUSATE 100 MG CAP PO SCH (09:25)
[2018-02-11] MEDS: NYSTATIN 100,000 UNIT/ML SUSP 500,000 UNIT/5 ML CUP PO SCH (09:26)
[2018-02-11] MEDS: PANTOPRAZOLE 40 MG/10 ML VIAL IV SCH (09:27)
[2018-02-11] MEDS: SPIRONOLACTONE 25 MG TAB PO SCH (09:27)
[2018-02-11] MEDS: THIAMINE 100 MG TAB PO SCH (09:27)
[2018-02-11] MEDS: ACETAMINOPHEN TAB 325 MG TAB PO PRN (09:37)
[2018-02-11 11:45] VITALS: BMI 21.2
== END 2018-02-11 14:05 | disposition home or self-care (01) | DRG 374 ==
LOC: EC 16:46 → 6SEL 19:28 → 5ONC 02-09 18:01
PROVIDERS: ADMIT Family Medicine; ATTEND Family Medicine
PROC: DDY Radiation Therapy, Gastrointestinal System, Other Radiation (ICD-10-PCS; principal; 2018-02-09)
DX: C20 Malignant neoplasm of rectum (principal); A41.51 Sepsis due to Escherichia coli [E. coli]; C78.00 Secondary malignant neoplasm of unspecified lung; C78.7 Secondary malignant neoplasm of liver and intrahepatic bile duct; B37.0 Candidal stomatitis; D68.9 Coagulation defect, unspecified; E87.1 Hypo-osmolality and hyponatremia; E87.2 Acidosis; G40.89 Other seizures; D50.9 Iron deficiency anemia, unspecified; D63.0 Anemia in neoplastic disease; D64.81 Anemia due to antineoplastic chemotherapy; T45.1X5A Adverse effect of antineoplastic and immunosuppressive drugs, initial encounter; E78.5 Hyperlipidemia, unspecified; E83.51 Hypocalcemia; E87.6 Hypokalemia; F10.20 Alcohol dependence, uncomplicated; I10 Essential (primary) hypertension; J44.9 Chronic obstructive pulmonary disease, unspecified; K52.9 Noninfective gastroenteritis and colitis, unspecified; M19.90 Unspecified osteoarthritis, unspecified site; R15.9 Full incontinence of feces; E53.8 Deficiency of other specified B group vitamins; E86.0 Dehydration; Z92.21 Personal history of antineoplastic chemotherapy; Z79.899 Other long term (current) drug therapy; Z87.01 Personal history of pneumonia (recurrent); Z87.891 Personal history of nicotine dependence; Z80.3 Family history of malignant neoplasm of breast; Z85.048 Personal history of other malignant neoplasm of rectum, rectosigmoid junction, and anus
CPT/HCPCS: 36415; 70450; 70553; 71046; 74018; 74176; 77295; 77300; 77332; 77334; 77387; 77412; 77470; 80048; 80053; 80074; 80306; 80320; 81003; 82088; 82272; 82607; 82728; 82747; 83540; 83550; 83605; 83735; 84133; 84244; 84300; 84443; 85025; 85027; 85610; 85730; 87040; 87077; 87086; 87186; 87324; 93005; 94760; 95816; 96361; 96365; 96366; 96372; 96375; 99285

== ENCOUNTER → 2018-04-08 | Outpatient (CLI) | payer OTHER ==
--- NOTE | 2018-04-08 11:18 | MR ---
EXAMINATION TYPE: MR brain wo/w con DATE OF EXAM: 04/08/2018 COMPARISON: Prior brain MRI 03/11/2018 HISTORY: New onset seizure TECHNIQUE: Multiplanar, multisequence images of the brain and brainstem is performed without and with IV contras t, utilizing 6 mL intravenous Gadavist . FINDINGS: Diffusion weighted images demonstrate no evidence of a recent infarct or other diffusion ab normality. There is no extra-axial fluid collection or significant interval change in white matter s ignal abnormality. The ventricular system and cisternal spaces are normal in size and appearance. T he brain volume is age appropriate. Midline structures demonstrate normal morphology. The craniocervical junction appears within normal limits. Post contrast images demonstrate no abnormal enhancement. The dural venous sinuses appear pa tent. The visualized sinuses are stable, possible mucus retention cyst right maxillary sinus, mild in flammatory changes ethmoid air cells, there is inflammatory change in the right mastoids as on prior, and the globes are intact. IMPRESSION: Essentially stable exam. Nonspecific white matter demyelination. Foci described above pun ctate enhancement on prior exam are not seen definitively. Sinus disease. Mastoid inflammatory change .
== END | disposition home or self-care (01) ==
LOC: RADMRIMAIN 09:39
PROVIDERS: ATTEND Psychiatry & Neurology Neurology
DX: G37.8 Other specified demyelinating diseases of central nervous system (principal)
CPT/HCPCS: 70553; A9585

== ENCOUNTER 2018-05-12 14:11 | Inpatient (IN) | payer OTHER ==
[2018-05-12] MEDS ORDERED: SODIUM CHLORIDE 0.9% 1,000 ML IV STA (14:57)
--- NOTE | 2018-05-12 15:04 | ED ---
SOB HPI - General Chief Complaint: Shortness of Breath Stated Complaint: SOB Time Seen by Provider: 05/12/18 14:38 Source: patient, RN notes reviewed Mode of arrival: ambulatory Limitations: no limitations - History of Present Illness Initial Comments: 57-year-old male presents emergency Department chief complaint of weakness, shortness of breath. Patient states he just does not feel well. He states she' s having a hard time taking care of himself. Patient states she has advanced colon cancer with metastasis to liver and lung. Patient was told that his cancer is too far advanced and not responding to chemotherapy and radiation. Patient on no current treatment at this time. Patient states she's had increased shortness breath has had recent pneumonia. Patient denies any fever states she's had chills. Patient states he is also does felt dehydrated. Patient's had prior imaging of his brain with no findings of metastasis to the brain, patient does feel slightly dizzy. Patient admits to ongoing diarrhea with no dysuria no hematuria. - Related Data Home Medications Medication Instructions Recorded Confirmed HYDROcodone/APAP 5-325MG [[place] 1 tab PO Q6H PRN 10/05/17 05/12/18 5-325] Albuterol Inhaler [Ventolin Hfa 1 - 2 puff INHALATION RT-Q6H PRN 12/24/17 Inhaler] ALPRAZolam [Xanax] 0.25 mg PO Q6H PRN 05/12/18 05/12/18 LORazepam [Ativan] 0.5 mg PO HS 05/12/18 05/12/18 Megestrol [Megace] 20 mg PO DAILY 05/12/18 05/12/18 Nebivolol HCl [Bystolic] 10 mg PO DAILY 05/12/18 05/12/18 Nystatin 100,000 Unit/ml Susp 500,000 unit PO QID 05/12/18 05/12/18 [Mycostatin Oral Susp] Potassium Chloride ER [K-Dur 20] 20 meq PO DAILY 05/12/18 05/12/18 Prochlorperazine [Compazine] 10 mg PO TID PRN 05/12/18 05/12/18 amLODIPine [Norvasc] 5 mg PO DAILY 05/12/18 05/12/18 Previous Rx's Medication Instructions Recorded Docusate [Colace] 100 mg PO BID #60 cap 02/10/18 Spironolactone [Aldactone] 25 mg PO DAILY #30 tab 02/10/18 Allergies Allergy/AdvReac Type Severity Reaction Status Date / Time No Known Allergies Allergy Verified 05/12/18 15:55 Review of Systems ROS Statement: Those systems with pertinent positive or pertinent negative responses have been documented in the HPI. ROS Other: All systems not noted in ROS Statement are negative. Past Medical History Past Medical History: Cancer, COPD, Hyperlipidemia, Hypertension, Pneumonia Additional Past Medical History / Comment(s): Arthritis. colon cancer dx 04/19 received 12 treatments of chemo. has port rt upper chest History of Any Multi-Drug Resistant Organisms: None Reported Past Surgical History: Tonsillectomy Additional Past Surgical History / Comment(s): Colonoscopy 2018 Past Anesthesia/Blood Transfusion Reactions: No Reported Reaction Past Psychological History: No Psychological Hx Reported Smoking Status: Former smoker Past Alcohol Use History: Abuse Past Drug Use History: None Reported - Past Family History Sister(s) Family Medical History: Cancer Additional Family Medical History / Comment(s): Sister Breast Ca General Exam Limitations: no limitations General appearance: alert, in no apparent distress Head exam: Present: atraumatic, normocephalic, normal inspection Eye exam: Present: normal appearance, PERRL, EOMI. Absent: scleral icterus, conjunctival injection, periorbital swelling ENT exam: Present: normal exam, normal oropharynx, mucous membranes moist Neck exam: Present: normal inspection, full ROM. Absent: tenderness, meningismus, lymphadenopathy Respiratory exam: Present: normal lung sounds bilaterally. Absent: respiratory distress, wheezes, rales, rhonchi, stridor Cardiovascular Exam: Present: normal rhythm, tachycardia, normal heart sounds. Absent: systolic murmur, diastolic murmur, rubs, gallop, clicks GI/Abdominal exam: Present: soft, normal bowel sounds. Absent: distended, tenderness, guarding, rebound, rigid Neurological exam: Present: alert, oriented X3, CN II-XII intact, reflexes normal. Absent: motor sensory deficit Skin exam: Present: warm, dry, intact, normal color. Absent: rash Course Vital Signs 05/12/18 14:25 Temperature 98.8 F Pulse Rate 108 H Respiratory 18 Rate Blood Pressure 131/89 O2 Sat by Pulse 98 Oximetry Medical Decision Making - Medical Decision Making 57-year-old male presented for shortness breath, generalized weakness. Patient will be admitted for hyponatremia, dehydration, hypokalemia, hypomagnesemia patient does have underlying colon cancer with metastases. - Lab Data Result diagrams: 05/12/18 15:17 05/12/18 15:17 Lab Results 05/12/18 05/12/18 05/12/18 Range/Units 15:17 15:17 15:17 WBC 11.8 H (3.8-10.6) k/uL RBC 3.40 L (4.30-5.90) m/uL Hgb 11.2 L (13.0-17.5) gm/dL Hct 34.5 L (39.0-53.0) % MCV 101.3 H (80.0-100.0) fL MCH 32.8 (25.0-35.0) pg MCHC 32.4 (31.0-37.0) g/dL RDW 15.1 (11.5-15.5) % Plt Count 254 (150-450) k/uL Neutrophils % 88 % Lymphocytes % 5 % Monocytes % 5 % Eosinophils % 1 % Basophils % 0 % Neutrophils # 10.3 H (1.3-7.7) k/uL Lymphocytes # 0.6 L (1.0-4.8) k/uL Monocytes # 0.6 (0-1.0) k/uL Eosinophils # 0.1 (0-0.7) k/uL Basophils # 0.0 (0-0.2) k/uL Macrocytosis Slight PT (9.0-12.0) sec INR (<1.2) APTT (22.0-30.0) sec Sodium 129 L (137-145) mmol/L Potassium 2.6 L* (3.5-5.1) mmol/L Chloride 91 L (98-107) mmol/L Carbon Dioxide 26 (22-30) mmol/L Anion Gap 12 mmol/L BUN 11 (9-20) mg/dL Creatinine 0.45 L (0.66-1.25) mg/dL Est GFR (CKD-EPI)AfAm >90 (>60 ml/min/1.73 sqM) Est GFR (CKD-EPI)NonAf >90 (>60 ml/min/1.73 sqM) Glucose 115 H (74-99) mg/dL Plasma Lactic Acid To (0.7-2.0) mmol/L Calcium 9.0 (8.4-10.2) mg/dL Magnesium 1.5 L (1.6-2.3) mg/dL Total Bilirubin 1.8 H (0.2-1.3) mg/dL AST 106 H (17-59) U/L ALT 32 (21-72) U/L Alkaline Phosphatase 912 H (38-126) U/L Total Creatine Kinase 103 (55-170) U/L CK-MB (CK-2) 1.5 (0.0-2.4) ng/mL CK-MB (CK-2) Rel Index 1.5 Troponin I 0.012 (0.000-0.034) ng/mL NT-Pro-B Natriuret Pep pg/mL Total Protein 6.6 (6.3-8.2) g/dL Albumin 3.2 L (3.5-5.0) g/dL 05/12/18 05/12/18 05/12/18 Range/Units 15:17 15:17 15:17 WBC (3.8-10.6) k/uL RBC (4.30-5.90) m/uL Hgb (13.0-17.5) gm/dL Hct (39.0-53.0) % MCV (80.0-100.0) fL MCH (25.0-35.0) pg MCHC (31.0-37.0) g/dL RDW (11.5-15.5) % Plt Count (150-450) k/uL Neutrophils % % Lymphocytes % % Monocytes % % Eosinophils % % Basophils % % Neutrophils # (1.3-7.7) k/uL Lymphocytes # (1.0-4.8) k/uL Monocytes # (0-1.0) k/uL Eosinophils # (0-0.7) k/uL Basophils # (0-0.2) k/uL Macrocytosis PT 11.2 (9.0-12.0) sec INR 1.1 (<1.2) APTT 26.8 (22.0-30.0) sec Sodium (137-145) mmol/L Potassium (3.5-5.1) mmol/L Chloride (98-107) mmol/L Carbon Dioxide (22-30) mmol/L Anion Gap mmol/L BUN (9-20) mg/dL Creatinine (0.66-1.25) mg/dL Est GFR (CKD-EPI)AfAm (>60 ml/min/1.73 sqM) Est GFR (CKD-EPI)NonAf (>60 ml/min/1.73 sqM) Glucose (74-99) mg/dL Plasma Lactic Acid To 2.5 H* (0.7-2.0) mmol/L Calcium (8.4-10.2) mg/dL Magnesium (1.6-2.3) mg/dL Total Bilirubin (0.2-1.3) mg/dL AST (17-59) U/L ALT (21-72) U/L Alkaline Phosphatase (38-126) U/L Total Creatine Kinase (55-170) U/L CK-MB (CK-2) (0.0-2.4) ng/mL CK-MB (CK-2) Rel Index Troponin I (0.000-0.034) ng/mL NT-Pro-B Natriuret Pep 119 pg/mL Total Protein (6.3-8.2) g/dL Albumin (3.5-5.0) g/dL Disposition Clinical Impression: Dehydration, Hyponatremia, Hypokalemia, Hypomagnesemia, Weakness, Primary colon cancer with metastasis to other site Disposition: ADMITTED IP TO THIS HOSP Condition: Fair Referrals: None,Stated [Primary Care Provider] - 1-2 days
[2018-05-12 15:43] LABS: Basophils % (A) 0 %; Eosinophils # (A) 0.1 k/uL (0-0.7); Eosinophils % (A) 1 %; HCT 34.5 % (39.0-53.0); HGB 11.2 gm/dL (13.0-17.5); Lymphocytes # (A) 0.6 k/uL (1.0-4.8); Lymphocytes % (A) 5 %; MCH 32.8 pg (25.0-35.0); MCHC 32.4 g/dL (31.0-37.0); MCV 101.3 fL (80.0-100.0); Macrocytosis Slight; Mean Platelet Volume 6.9; Monocytes # (A) 0.6 k/uL (0-1.0); Monocytes % (A) 5 %; Neutrophils # (A) 10.3 k/uL (1.3-7.7); Neutrophils % (A) 88 %; Platelet Count 254 k/uL (150-450); RDW 15.1 % (11.5-15.5); WBC 11.8 k/uL (3.8-10.6)
--- NOTE | 2018-05-12 15:51 | XR ---
EXAMINATION TYPE: XR chest 2V DATE OF EXAM: 05/12/2018 COMPARISON: Chest x-ray February 06, 2018. PET/CT May 02, 2017 HISTORY: Increased shortness of breath and weakness. Known colon cancer. TECHNIQUE: Frontal and lateral views of the chest are obtained. FINDINGS: There is stable right subclavian Mediport catheter. There are felt enlarging bilateral pulm onary nodules from most recent chest x-ray. Known pulmonary metastatic disease is identified on PET/C T report May 02, 2017. There is no focal air space opacity, pleural effusion, or pneumothorax se en. The cardiac silhouette size is within normal limits. The osseous structures are intact. IMPRESSION: Probable progression of pulmonary metastatic disease. No suspicious acute pulmonary proc ess.
[2018-05-12 15:58] LABS: INR 1.1 (<1.2); Partial Thromboplastin Time 26.8 sec (22.0-30.0); Prothrombin Time 11.2 sec (9.0-12.0)
[2018-05-12 16:00] LABS: Chloride 91 mmol/L (98-107)
[2018-05-12 16:01] LABS: ALT 32 U/L (21-72); AST 106 U/L (17-59); Albumin 3.2 g/dL (3.5-5.0); Alkaline Phosphatase 912 U/L (38-126); Anion Gap 12 mmol/L; Blood Urea Nitrogen 11 mg/dL (9-20); Carbon Dioxide 26 mmol/L (22-30); Glucose 115 mg/dL (74-99); Magnesium 1.5 mg/dL (1.6-2.3); Sodium 129 mmol/L (137-145); Total Bilirubin 1.8 mg/dL (0.2-1.3); Total Protein 6.6 g/dL (6.3-8.2)
[2018-05-12 16:09] LABS: Creatine Kinase MB 1.5 ng/mL (0.0-2.4); Troponin I 0.012 ng/mL (0.000-0.034)
[2018-05-12 16:28] LABS: Potassium 2.6 mmol/L (3.5-5.1)
[2018-05-12] MEDS ORDERED: POTASSIUM CHLORIDE ER 20 MEQ TAB.ER PO STA (17:07)
[2018-05-12] MEDS ORDERED: MAGNESIUM SULFATE-D5W PMX 1 GM in DEXTROSE/WATER 1 100ML.BAG IVPB ONE (17:07)
[2018-05-12] MEDS: SODIUM CHLORIDE 0.9% 1,000 ML IV SCH (17:56)
[2018-05-12] MEDS ORDERED: diphenhydrAMINE 50 MG/ML 1 ML VIAL IVP STA (18:26)
[2018-05-12] MEDS: HYDROcodone/APAP 5-325MG 1 EACH TAB PO PRN (18:51)
[2018-05-12] MEDS ORDERED: Potassium Replacement Protocol 1 EACH MISC MISCELLANE PRN (20:05)
[2018-05-12] MEDS ORDERED: Magnesium Replacement Protocol 1 EACH MISC MISCELLANE PRN (20:05)
[2018-05-12] MEDS ORDERED: HYDROcodone/APAP 5-325MG 1 EACH TAB PO PRN (20:07)
[2018-05-12] MEDS ORDERED: IPRATROPIUM-ALBUTEROL 3 ML NEB INHALATION PRN (20:08)
[2018-05-12] MEDS: LORazepam 0.5 MG TAB PO SCH (20:41)
[2018-05-12] MEDS: NYSTATIN 100,000 UNIT/ML SUSP 500,000 UNIT/5 ML CUP PO SCH (20:41)
[2018-05-12] MEDS: DOCUSATE 100 MG CAP PO SCH (20:41)
[2018-05-12] MEDS: HYDROmorphone 1 MG/ML 1 ML SYRINGE IVP PRN (20:41)
[2018-05-13] MEDS: HYDROcodone/APAP 5-325MG 1 EACH TAB PO PRN ×4 (00:02→19:54)
[2018-05-13] MEDS: HYDROmorphone 1 MG/ML 1 ML SYRINGE IVP PRN ×5 (00:58→19:55)
[2018-05-13] MEDS: IPRATROPIUM-ALBUTEROL 3 ML NEB INHALATION SCH ×4 (08:13→19:30)
[2018-05-13] MEDS: SODIUM CHLORIDE 0.9% 1,000 ML IV SCH ×2 (08:39→19:56)
[2018-05-13] MEDS: DOCUSATE 100 MG CAP PO SCH ×2 (08:43→19:56)
[2018-05-13] MEDS: ALPRAZolam 0.25 MG TAB PO PRN ×2 (08:43→16:35)
[2018-05-13] MEDS: NYSTATIN 100,000 UNIT/ML SUSP 500,000 UNIT/5 ML CUP PO SCH ×4 (08:44→19:56)
[2018-05-13] MEDS: NEBIVOLOL 5 MG TAB PO SCH (08:44)
[2018-05-13] MEDS: MEGESTROL 400 MG/10 ML CUP PO SCH (08:44)
[2018-05-13 09:58] LABS: Basophils % (A) 0 %; Eosinophils # (A) 0.3 k/uL (0-0.7); Eosinophils % (A) 3 %; HCT 32.5 % (39.0-53.0); HGB 10.6 gm/dL (13.0-17.5); Lymphocytes % (A) 9 %; MCH 33.7 pg (25.0-35.0); MCHC 32.7 g/dL (31.0-37.0); MCV 103.2 fL (80.0-100.0); Macrocytosis Slight; Mean Platelet Volume 7.5; Monocytes # (A) 0.6 k/uL (0-1.0); Monocytes % (A) 6 %; Neutrophils # (A) 9.3 k/uL (1.3-7.7); Neutrophils % (A) 82 %; Platelet Count 214 k/uL (150-450); RBC 3.15 m/uL (4.30-5.90); RDW 14.7 % (11.5-15.5); WBC 11.4 k/uL (3.8-10.6)
[2018-05-13 10:25] LABS: Anion Gap 5 mmol/L; Blood Urea Nitrogen 8 mg/dL (9-20); Calcium 8.8 mg/dL (8.4-10.2); Carbon Dioxide 28 mmol/L (22-30); Chloride 98 mmol/L (98-107); Glucose 99 mg/dL (74-99); Magnesium 1.9 mg/dL (1.6-2.3); Potassium 3.8 mmol/L (3.5-5.1); Sodium 131 mmol/L (137-145)
[2018-05-13] MEDS: IOPAMIDOL-300 CONTRAST 30 ML VIAL (ORAL USE) PO PRN ×2 (10:36→11:35)
[2018-05-13] MEDS ORDERED: ALBUTEROL INHALER 60 PUFF/8 GM INHALER INHALATION PRN (10:44)
--- NOTE | 2018-05-13 14:20 | CT ---
EXAMINATION TYPE: CT ChestAbdPelvis w con DATE OF EXAM: 05/13/2018 COMPARISON: 02/06/2018 and PET/CT 05/02/2017 HISTORY: 57-year-old male with history of rectal cancer, follow-up for metastatic disease TECHNIQUE: Contiguous axial scanning of the chest, abdomen, and pelvis performed with IV Contrast, pa tient injected with 100 mL of Isovue 300. Delayed images through the kidneys were obtained. Coronal/s agittal reconstructions performed. CT DLP: 509.6 mGycm Automated exposure control for dose reduction was used. FINDINGS: CHEST: Heart normal size without pericardial effusion. Aorta normal caliber with conventional arch vessel branching anatomy. Right anterior chest wall injection port with catheter tip in the lower SVC. No thoracic lymphadenopathy by CT size criteria. Numerous bilateral pulmonary nodules are present. Some of these were visualized at the lung bases on the patient's abdomen and pelvis CT of 02/06/2018. The nodule seen at that time show interval increase in size, for example, measuring now 1.5 cm at the right base and 1.7 cm at the left base versus 1.1 cm, previously. There are also new nodules from that time and the overall number of nodules has also increased from the patient's folder 05/02/2017 PET/CT. ABDOMEN: Redemonstrated areas of calcification within the liver. There are heterogeneous areas of enhancement throughout more so within the right lobe. These heterogeneous and areas are conglomerate in some maddie ons and difficult to clearly measure but it seems to be overall increased from 02/06/2018. No biliary ductal dilatation. Portal venous system is patent. Gallbladder, adrenal glands, kidneys, spleen, and pancreas appear within normal limits. No dilated small bowel, free fluid, or free air. Prominent liquid stool within the right side of the colon. There is moderate to severe circumferential wall thickening of the distal sigmoid and rectum a nd more moderate circumferential thickening along the more proximal to mid sigmoid. No mesenteric or retroperitoneal lymphadenopathy identified. Pelvis: A circumferential bladder wall thickening is unchanged. Mild presacral edema. Additional edematous ch jairon seen tracking down the left pelvic sidewall. No mary free fluid. Nonspecific cyst redemonstrated in the right inguinal region along the femoral canal measures 2.1 cm and was present back on the patient's 05/02/2017 PET/CT showing no metabolic activity. Findings sugge st a benign etiology such as a ganglion cyst. Bones: Degenerative changes at the SI joints. No osseous destructive process. IMPRESSION: 1. MODERATE TO SEVERE CIRCUMFERENTIAL WALL THICKENING OF THE DISTAL SIGMOID AND RECTUM COMPATIBLE WIT H SITE OF KNOWN RECTAL CARCINOMA. THERE IS HETEROGENEOUS, LOBULATED ENHANCEMENT HERE AND RESIDUAL/REC URRENT LOCAL TUMOR IS NOT EXCLUDED. 2. MODERATE CIRCUMFERENTIAL WALL THICKENING OF THE MORE PROXIMAL TO MID SIGMOID COULD REPRESENT COLIT IS OR POSTTREATMENT CHANGE. 3. DIFFUSE HEPATIC METASTASES. AREAS ESPECIALLY IN THE RIGHT LOBE SHOW MORE EXTENSIVE HETEROGENEITY. FINDINGS SUGGEST DISEASE PROGRESSION FROM THE PATIENT'S NONCONTRAST 02/06/2018 CT. 4. METASTATIC DISEASE IN THE CHEST WITH NUMEROUS PULMONARY NODULES (MEASURING UP TO 1.7 CM VERSUS 1.1 CM, PREVIOUSLY) WHICH ARE EITHER NEW OR INCREASING IN SIZE.
--- NOTE | 2018-05-13 14:41 | P.HPIM ---
History of Present Illness 57-year-old very pleasant gentleman although looks older than stated age came in with compensative generalized weakness tiredness nausea vomiting diarrhea and a patient doesn't have any diarrhea today had multiple episodes of diarrhea and less today for about last 3 days patient appears to be dehydrated. Patient is comparing of nonspecific abdominal pain while mild to moderate as well as to her shortness of breath. CAT scan of the abdomen and chest were often there is no pulmonary embolism but there is worsening metastatic colon cancer disease. Patient the abdominal CAT scan did show inflammation and colitis surrounding the colonic tumor. Patient received chemo and radiation therapy in spite of which patient continued to have progressive disease. Patient doesn't have any brain metastases as per the patient. Patient is well with oncology patient has poor pedal intake as well leading to dehydration and intravascular volume depletion. I discussed CODE STATUS with the patient and the patient is agreeable on DO NOT RESUSCITATE at this time Review of Systems REVIEW OF SYSTEMS: CONSTITUTIONAL: As mentioned in HPI HEENT: No recent visual problems or hearing problems. Denied any sore throat. CARDIOVASCULAR: No chest pain, orthopnea, PND, no palpitations, no syncope. PULMONARY: No shortness of breath, no cough, no hemoptysis. GASTROINTESTINAL: As mentioned in HPI NEUROLOGICAL: No headaches, no weakness, no numbness. HEMATOLOGICAL: Denies any bleeding or petechiae. GENITOURINARY: Denies any burning micturition, frequency, or urgency. MUSCULOSKELETAL/RHEUMATOLOGICAL: Denies any joint pain, swelling, or any muscle pain. ENDOCRINE: Denies any polyuria or polydipsia. The rest of the 14-point review of systems is negative. Past Medical History Past Medical History: Cancer, COPD, GI Bleed, Hyperlipidemia, Hypertension, Pneumonia Additional Past Medical History / Comment(s): Arthritis. colon cancer "mets to liver,lung"dx 04/19 received 12 treatments of chemo/9 rounds radiation now on oral chemo pill. has port rt upper chest. pt stated has had a seizure at age 32 "they think it was because he was'nt eating good and was dehydrated " pt had another seizure 2017-pt thinks it may have been related to medication". History of Any Multi-Drug Resistant Organisms: Other MDRO Past Surgical History: Tonsillectomy Additional Past Surgical History / Comment(s): Colonoscopy 2018, port placement rt upper chest Past Anesthesia/Blood Transfusion Reactions: Motion Sickness Additional Past Anesthesia/Blood Transfusion Reaction / Comment(s): never had any blood transfusions Past Psychological History: No Psychological Hx Reported Smoking Status: Current some day smoker Past Alcohol Use History: Abuse Past Drug Use History: Unable to Obtain - Past Family History Sister(s) Family Medical History: Cancer Additional Family Medical History / Comment(s): Sister Breast Ca Mother Family Medical History: Asthma, COPD Father Family Medical History: Hypertension Medications and Allergies Home Medications Medication Instructions Recorded Confirmed Type HYDROcodone/APAP 5-325MG [[place] 1 tab PO Q6H PRN 10/05/17 05/12/18 History 5-325] Albuterol Inhaler [Ventolin Hfa 1 - 2 puff INHALATION RT-Q6H PRN 12/24/17 History Inhaler] Docusate [Colace] 100 mg PO BID #60 cap 02/10/18 05/12/18 Rx Spironolactone [Aldactone] 25 mg PO DAILY #30 tab 02/10/18 05/12/18 Rx ALPRAZolam [Xanax] 0.25 mg PO Q6H PRN 05/12/18 05/12/18 History LORazepam [Ativan] 0.5 mg PO HS 05/12/18 05/12/18 History Megestrol [Megace] 20 mg PO DAILY 05/12/18 05/12/18 History Nebivolol HCl [Bystolic] 10 mg PO DAILY 05/12/18 05/12/18 History Nystatin 100,000 Unit/ml Susp 500,000 unit PO QID 05/12/18 05/12/18 History [Mycostatin Oral Susp] Potassium Chloride ER [K-Dur 20] 20 meq PO DAILY 05/12/18 05/12/18 History Prochlorperazine [Compazine] 10 mg PO TID PRN 05/12/18 05/12/18 History amLODIPine [Norvasc] 5 mg PO DAILY 05/12/18 05/12/18 History Allergies Allergy/AdvReac Type Severity Reaction Status Date / Time No Known Allergies Allergy Verified 05/12/18 15:55 Physical Exam Vitals: Vital Signs Temp Pulse Pulse Resp BP BP Pulse Ox 05/13/18 11:58 98 F 72 18 124/80 100 05/13/18 11:36 88 05/13/18 11:28 84 05/13/18 08:30 88 05/13/18 08:19 80 05/13/18 05:14 97.9 F 81 16 137/79 98 05/12/18 21:00 98.4 F 86 16 132/83 100 05/12/18 18:48 94 17 140/96 97 Intake and Output 05/12/18 05/13/18 05/13/18 22:59 06:59 14:59 Intake Total 1000 600 Balance 1000 600 Intake: Amount of Fluid Infused ( 1000 ml) Intake, IV Titration 600 Amount Sodium Chloride 0.9% 1, 600 000 ml @ 75 mls/hr IV . [id number] [facility] Rx#:[id number] Other: Voiding Method Toilet Toilet # Voids 2 1 # Bowel Movements 0 Weight 53.5 kg 53.5 kg PHYSICAL EXAMINATION: GENERAL: Patient appears bit tired and lethargic. Thin built HEENT: Pupils are round and equally reacting to light. EOMI. No scleral icterus. No conjunctival pallor. Normocephalic, atraumatic. No pharyngeal erythema. No thyromegaly. CARDIOVASCULAR: S1 and S2 present. No murmurs, rubs, or gallops. PULMONARY: Chest is clear to auscultation, no wheezing or crackles. ABDOMEN: Soft, nontender, nondistended, normoactive bowel sounds. No palpable organomegaly. MUSCULOSKELETAL: No joint swelling or deformity. EXTREMITIES: No cyanosis, clubbing, or pedal edema. NEUROLOGICAL: Gross neurological examination did not reveal any focal deficits. SKIN: No rashes. Results CBC & Chem 7: 05/13/18 08:56 05/13/18 08:56 Labs: Abnormal Lab Results - Last 24 Hours (Table) 05/12/18 05/12/18 05/12/18 Range/Units 15:17 15:17 15:17 WBC 11.8 H (3.8-10.6) k/uL RBC 3.40 L (4.30-5.90) m/uL Hgb 11.2 L (13.0-17.5) gm/dL Hct 34.5 L (39.0-53.0) % MCV 101.3 H (80.0-100.0) fL Neutrophils # 10.3 H (1.3-7.7) k/uL Lymphocytes # 0.6 L (1.0-4.8) k/uL Sodium 129 L (137-145) mmol/L Potassium 2.6 L* (3.5-5.1) mmol/L Chloride 91 L (98-107) mmol/L BUN (9-20) mg/dL Creatinine 0.45 L (0.66-1.25) mg/dL Glucose 115 H (74-99) mg/dL Plasma Lactic Acid To 2.5 H* (0.7-2.0) mmol/L Magnesium 1.5 L (1.6-2.3) mg/dL Total Bilirubin 1.8 H (0.2-1.3) mg/dL AST 106 H (17-59) U/L Alkaline Phosphatase 912 H (38-126) U/L Albumin 3.2 L (3.5-5.0) g/dL 05/13/18 05/13/18 Range/Units 08:56 08:56 WBC 11.4 H (3.8-10.6) k/uL RBC 3.15 L (4.30-5.90) m/uL Hgb 10.6 L (13.0-17.5) gm/dL Hct 32.5 L (39.0-53.0) % MCV 103.2 H (80.0-100.0) fL Neutrophils # 9.3 H (1.3-7.7) k/uL Lymphocytes # (1.0-4.8) k/uL Sodium 131 L (137-145) mmol/L Potassium (3.5-5.1) mmol/L Chloride (98-107) mmol/L BUN 8 L (9-20) mg/dL Creatinine 0.48 L (0.66-1.25) mg/dL Glucose (74-99) mg/dL Plasma Lactic Acid To (0.7-2.0) mmol/L Magnesium (1.6-2.3) mg/dL Total Bilirubin (0.2-1.3) mg/dL AST (17-59) U/L Alkaline Phosphatase (38-126) U/L Albumin (3.5-5.0) g/dL Thrombosis Risk Factor Assmnt - Choose All That Apply Any of the Below Risk Factors Present?: Yes Each Factor Represents 1 point: Age 41-60 years Each Risk Factor Represents 2 Points: Malignancy Thrombosis Risk Factor Assessment Total Risk Factor Score: 3 Thrombosis Risk Factor Assessment Level: Moderate Risk Assessment and Plan Plan: -Generalized weakness and tiredness: Secondary to advancing cancer and cancer cachexia along with dehydration -Hyponatremia: Severe hypovolemic hyponatremia: Continue with IV fluids patient is bit dehydrated -Diarrhea: Secondary to mucositis from his K chemo and radiation therapy will obtain C. diff if he continues to have diarrhea patient did not have any diarrhea as per the patient's is today morning -: Cancer metastatic disease pain management supportive care patient is more appropriate for palliative or hospice. -Hypertension hold off on Norvasc to avoid hypotension -Cancer cachexia protein calorie malnutrition -COPD significant exacerbation -Hyperlipidemia CODE STATUS DO NOT RESUSCITATE as mentioned above
--- NOTE | 2018-05-13 16:33 | P.CONS ---
History of Present Illness - Reason for Consult Consult date: 05/13/18 Metastatic Rectal adenocarcinoma Requesting physician: Yolanda Krueger - Chief Complaint weakness, anorexia - History of Present Illness Mr. Torres is a pt of Dr. Cancino with ETOH abuse history that has affected his malignancy treatment. Pt is unable to follow the plan of care as laid down by the physician. He initially presented to [facility] with bright red blood per rectum X few weeks, associated with mild lower abdominal pain, described as "gas ". Seen by surgery, had colonoscopy, mass found 7 cm from anal verge, biopsy adenocarcinoma, staging CT CAP showed mets to liver and multiple pulmonary mets. Pt did end up having a liver biopsy as the specimen from the rectum was not adequate for further testing. Pt had no actionable biomarkers. He was started on palliative FOLFOX and avastin on 06/01/17, avastin was held due to HTN. Treatment f/u CT after cycle 4 or 5 showed significant improvement in liver mets. He completed 9 or 10 cycles when he was admitted in November with severe dehydration, CT showed improved pulmonary & hepatic mets but, ? progression of primary site in rectosigmoid area. Pt missed appts and was hospitalized for injuries sustained duering ETOH binge. In Nov he had c/o lower abdominal pain for which he completed limited palliative radiation to pelvis and his treatment was changed to oral xeloda. He was last seen in office , did not make f/u appts, confirmed with specialty pharmacy that pt has not had a delivery of xeloda for at least 3 months. Pt admitted with sudden onset weakness, so bad he could hardly get out of chair , associated with anorexia, thrush, diarrhea, SOB and vomiting. Denied fevers, sore throat, new cough, hemoptysis, hematemesis, chest pain, abd pain or blaoting, dysuria, hematuria, he has noted a "few spots of blood" in his stool, not reporting rectal pain or swelling. Review of Systems 14 point ROS is negative except as stated in HPI Past Medical History Past Medical History: Cancer, COPD, GI Bleed, Hyperlipidemia, Hypertension, Pneumonia Additional Past Medical History / Comment(s): Arthritis. colon cancer "mets to liver,lung"dx 04/19 received 12 treatments of chemo/9 rounds radiation now on oral chemo pill. has port rt upper chest. pt stated has had a seizure at age 32 "they think it was because he was'nt eating good and was dehydrated " pt had another seizure 2017-pt thinks it may have been related to medication". History of Any Multi-Drug Resistant Organisms: Other MDRO Past Surgical History: Tonsillectomy Additional Past Surgical History / Comment(s): Colonoscopy 2018, port placement rt upper chest Past Anesthesia/Blood Transfusion Reactions: Motion Sickness Additional Past Anesthesia/Blood Transfusion Reaction / Comm: never had any blood transfusions Past Psychological History: No Psychological Hx Reported Smoking Status: Current some day smoker Past Alcohol Use History: Abuse Past Drug Use History: Unable to Obtain - Past Family History Sister(s) Family Medical History: Cancer Additional Family Medical History / Comment(s): Sister Breast Ca Mother Family Medical History: Asthma, COPD Father Family Medical History: Hypertension Medications and Allergies Home Medications Medication Instructions Recorded Confirmed Type HYDROcodone/APAP 5-325MG [[place] 1 tab PO Q6H PRN 10/05/17 05/12/18 History 5-325] Albuterol Inhaler [Ventolin Hfa 1 - 2 puff INHALATION RT-Q6H PRN 12/24/17 History Inhaler] Docusate [Colace] 100 mg PO BID #60 cap 02/10/18 05/12/18 Rx Spironolactone [Aldactone] 25 mg PO DAILY #30 tab 02/10/18 05/12/18 Rx ALPRAZolam [Xanax] 0.25 mg PO Q6H PRN 05/12/18 05/12/18 History LORazepam [Ativan] 0.5 mg PO HS 05/12/18 05/12/18 History Megestrol [Megace] 20 mg PO DAILY 05/12/18 05/12/18 History Nebivolol HCl [Bystolic] 10 mg PO DAILY 05/12/18 05/12/18 History Nystatin 100,000 Unit/ml Susp 500,000 unit PO QID 05/12/18 05/12/18 History [Mycostatin Oral Susp] Potassium Chloride ER [K-Dur 20] 20 meq PO DAILY 05/12/18 05/12/18 History Prochlorperazine [Compazine] 10 mg PO TID PRN 05/12/18 05/12/18 History amLODIPine [Norvasc] 5 mg PO DAILY 05/12/18 05/12/18 History Allergies Allergy/AdvReac Type Severity Reaction Status Date / Time No Known Allergies Allergy Verified 05/12/18 15:55 Physical Exam Vitals: Vital Signs Temp Pulse Pulse Resp BP BP Pulse Ox 05/13/18 08:30 88 05/13/18 08:19 80 05/13/18 05:14 97.9 F 81 16 137/79 98 05/12/18 21:00 98.4 F 86 16 132/83 100 05/12/18 18:48 94 17 140/96 97 05/12/18 14:25 98.8 F 108 H 18 131/89 98 Intake and Output 05/12/18 05/13/18 05/13/18 22:59 06:59 14:59 Intake Total 1000 Balance 1000 Intake: Amount of Fluid Infused ( 1000 ml) Other: Voiding Method Toilet # Voids 2 1 Weight 53.5 kg 53.5 kg - Constitutional General appearance: average body habitus, cooperative, no acute distress - EENT Eyes: anicteric sclerae, EOMI ENT: hearing grossly normal, thrush - Neck Neck: no lymphadenopathy - Respiratory Respiratory: bilateral: diminished - Cardiovascular Rhythm: regular Heart sounds: normal: S1, S2 Abnormal Heart Sounds: no systolic murmur, no diastolic murmur, no rub, no S3 Gallop, no S4 Gallop, no click, no other leg Peripheral Edema: bilateral: None - Gastrointestinal General gastrointestinal: no absent bowel sounds, no decreased bowel sounds, no distended, no hepatomegaly, no hyperactive bowel sounds, normal bowel sounds, no organomegaly, no rigid, no scaphoid, soft, no splenomegaly, no tenderness, no umbilical hernia, no ventral hernia - Integumentary Integumentary: normal - Neurologic Neurologic: CNII-XII intact - Musculoskeletal Musculoskeletal: generalized weakness, strength equal bilaterally - Psychiatric Psychiatric: A&O x's 3, appropriate affect, intact judgment & insight Results CBC & Chem 7: 05/13/18 08:56 05/13/18 08:56 Labs: Abnormal Lab Results - Last 24 Hours (Table) 05/12/18 05/12/18 05/12/18 Range/Units 15:17 15:17 15:17 WBC 11.8 H (3.8-10.6) k/uL RBC 3.40 L (4.30-5.90) m/uL Hgb 11.2 L (13.0-17.5) gm/dL Hct 34.5 L (39.0-53.0) % MCV 101.3 H (80.0-100.0) fL Neutrophils # 10.3 H (1.3-7.7) k/uL Lymphocytes # 0.6 L (1.0-4.8) k/uL Sodium 129 L (137-145) mmol/L Potassium 2.6 L* (3.5-5.1) mmol/L Chloride 91 L (98-107) mmol/L Creatinine 0.45 L (0.66-1.25) mg/dL Glucose 115 H (74-99) mg/dL Plasma Lactic Acid To 2.5 H* (0.7-2.0) mmol/L Magnesium 1.5 L (1.6-2.3) mg/dL Total Bilirubin 1.8 H (0.2-1.3) mg/dL AST 106 H (17-59) U/L Alkaline Phosphatase 912 H (38-126) U/L Albumin 3.2 L (3.5-5.0) g/dL Chest x-ray: report reviewed Assessment and Plan (1) Rectal cancer metastasized to liver Narrative/Plan: Pt has been on xeloda most recently. He states he is currently on his 2nd week of 14 day cycle every 21 days. He was last seen just over a month ago in the office, did not make f/u appt so, it is really unclear if pt is taking med. Pt has xeloda delivered to the office because he does not have address for delivery. Pt, many times, does not answer his phone to verify that it is ok to deliver drug. Last opportunity to lease picker xeloda would have been a month ago. Did confirm with specialty pharm , no delivery of drug for several months. His last treatment CT follow up was in Feb. Will repeat CT AP for treatment follow up evaluation. Further decisions regarding treatment will be determined based on disease. Pt would really only have the choice to take xeloda as prescribed as there are no other treatment options for rectal. Current Visit: Yes Status: Acute Priority: High Code(s): C20 - MALIGNANT NEOPLASM OF RECTUM; C78.7 - SECONDARY MALIG NEOPLASM OF LIVER AND INTRAHEPATIC BILE DUCT SNOMED Code(s): 745535518 (2) Weakness Current Visit: Yes Status: Acute Code(s): R53.1 - WEAKNESS SNOMED Code(s) : 09501600 (3) Thrush Narrative/Plan: On nystatin Current Visit: Yes Status: Chronic Priority: Medium Code(s): B37.0 - CANDIDAL STOMATITIS SNOMED Code(s): 83672402 Plan: Pt currently admitted for c/o of anorexia, nausea, diarrhea and weakness. Xeloda does have diarrhea and nausea as side effects so, treat conservatively, there is questions as to if pt has truly been taking. Will monitor recovery, pt did eat fairly well this am with no symptoms reported. His CBC is nearly normal so, no hematological toxicities, cont to monitor. Agree with IM treatment plan. Pt has all supportive medications for symptoms. Flu was negative. Stool studies ordered. attests: I have performed H&P and developed impression and plan of care for pt, discussed with dictator. I agree with dictated note, documented as a scribe
[2018-05-13] MEDS: LORazepam 0.5 MG TAB PO SCH (19:56)
[2018-05-14] MEDS: HYDROmorphone 1 MG/ML 1 ML SYRINGE IVP PRN ×5 (05:38→22:03)
[2018-05-14] MEDS: HYDROcodone/APAP 5-325MG 1 EACH TAB PO PRN ×3 (05:39→18:14)
[2018-05-14] MEDS: ALPRAZolam 0.25 MG TAB PO PRN ×3 (05:40→18:15)
[2018-05-14] MEDS: NYSTATIN 100,000 UNIT/ML SUSP 500,000 UNIT/5 ML CUP PO SCH ×4 (05:40→21:52)
[2018-05-14 08:18] LABS: Basophils % (A) 0 %; Eosinophils # (A) 0.3 k/uL (0-0.7); Eosinophils % (A) 3 %; HCT 29.8 % (39.0-53.0); HGB 9.7 gm/dL (13.0-17.5); Lymphocytes # (A) 0.6 k/uL (1.0-4.8); Lymphocytes % (A) 6 %; MCH 33.9 pg (25.0-35.0); MCHC 32.6 g/dL (31.0-37.0); MCV 104.1 fL (80.0-100.0); Macrocytosis Moderate; Mean Platelet Volume 7.8; Monocytes # (A) 0.5 k/uL (0-1.0); Monocytes % (A) 5 %; Neutrophils # (A) 8.6 k/uL (1.3-7.7); Neutrophils % (A) 85 %; Platelet Count 220 k/uL (150-450); RBC 2.87 m/uL (4.30-5.90); RDW 14.8 % (11.5-15.5); WBC 10.2 k/uL (3.8-10.6)
[2018-05-14 08:24] LABS: Anion Gap 7 mmol/L; Blood Urea Nitrogen 4 mg/dL (9-20); Calcium 8.6 mg/dL (8.4-10.2); Carbon Dioxide 24 mmol/L (22-30); Chloride 102 mmol/L (98-107); Glucose 86 mg/dL (74-99); Potassium 3.6 mmol/L (3.5-5.1); Sodium 133 mmol/L (137-145)
[2018-05-14] MEDS: IPRATROPIUM-ALBUTEROL 3 ML NEB INHALATION SCH ×4 (08:32→20:27)
[2018-05-14] MEDS: NEBIVOLOL 5 MG TAB PO SCH (09:03)
[2018-05-14] MEDS: DOCUSATE 100 MG CAP PO SCH ×2 (09:03→21:52)
[2018-05-14] MEDS: MEGESTROL 400 MG/10 ML CUP PO SCH (09:03)
[2018-05-14] MEDS: SODIUM CHLORIDE 0.9% 1,000 ML IV SCH ×2 (09:42→21:52)
--- NOTE | 2018-05-14 11:52 | P.DS ---
Providers Date of admission: 05/12/18 17:34 Attending physician: Yolanda Krueger Consults: 05/13/18 10:32 Consult Physician Routine Consulting Provider: Guillermo Sage Consult Reason/Comments: oncology care Do you want consulting provider notified?: Already Contacted Primary care physician: Stated None Hospital Course: 57-year-old very pleasant gentleman although looks older than stated age came in with compensative generalized weakness tiredness nausea vomiting diarrhea and a patient doesn't have any diarrhea today had multiple episodes of diarrhea and less today for about last 3 days patient appears to be dehydrated. Patient is comparing of nonspecific abdominal pain while mild to moderate as well as to her shortness of breath. CAT scan of the abdomen and chest were often there is no pulmonary embolism but there is worsening metastatic colon cancer disease. Patient the abdominal CAT scan did show inflammation and colitis surrounding the colonic tumor. Patient received chemo and radiation therapy in spite of which patient continued to have progressive disease. Patient doesn't have any brain metastases as per the patient. Patient is well with oncology patient has poor pedal intake as well leading to dehydration and intravascular volume depletion. I discussed CODE STATUS with the patient and the patient is agreeable on DO NOT RESUSCITATE at this time 05/14/2018 I had extensive discussion with the patient and oncology nurse practitioner today. Patient's repeat CAT scans did show worsening metastatic disease and primary cancer which is colon cancer patient is comparing of abdominal pain and generalized tiredness is dehydration although improved they're not any other options left except for comfort care and hospice same thing was discussed with the patient hospice was consulted if possible will discharge patient to Hospital services today. Constitutional: Still feels tired and fatigued Gastrointestinal still has abdominal pain bowel All inpatient medications were reviewed and appropriate changes in these medications as dictated in the interval history and assessment and plan. PHYSICAL EXAMINATION: GENERAL: Patient appears bit tired and lethargic. Thin built HEENT: Pupils are round and equally reacting to light. EOMI. No scleral icterus. No conjunctival pallor. Normocephalic, atraumatic. No pharyngeal erythema. No thyromegaly. CARDIOVASCULAR: S1 and S2 present. No murmurs, rubs, or gallops. PULMONARY: Chest is clear to auscultation, no wheezing or crackles. ABDOMEN: Soft, nontender, nondistended, normoactive bowel sounds. No palpable organomegaly. MUSCULOSKELETAL: No joint swelling or deformity. EXTREMITIES: No cyanosis, clubbing, or pedal edema. NEUROLOGICAL: Gross neurological examination did not reveal any focal deficits. SKIN: No rashes. Assessment and Plan Plan: -Generalized weakness and tiredness: Secondary to advancing cancer and cancer cachexia along with dehydration -Hyponatremia: Severe hypovolemic hyponatremia: Continue with IV fluids patient is bit dehydrated -Diarrhea: Improving now and secondary to mucositis from cancer -colon Cancer metastatic disease pain management supportive care patient is more appropriate for palliative or hospice. -Hypertension hold off on Norvasc to avoid hypotension -Cancer cachexia protein calorie malnutrition -COPD significant exacerbation -Hyperlipidemia CODE STATUS DO NOT RESUSCITATE as mentioned above Hospice consultation as mentioned above possibility of discharge to Hospital services today Patient Condition at Discharge: Fair Plan - Discharge Summary Discharge Rx Participant: No New Discharge Prescriptions: Discontinued Spironolactone [Aldactone] 25 mg PO DAILY #30 tab Potassium Chloride ER [K-Dur 20] 20 meq PO DAILY No Action HYDROcodone/APAP 5-325MG [[place] 5-325] 1 tab PO Q6H PRN PRN Reason: Pain Albuterol Inhaler [Ventolin Hfa Inhaler] 1 - 2 puff INHALATION RT-Q6H PRN PRN Reason: Shortness Of Breath Docusate [Colace] 100 mg PO BID #60 cap amLODIPine [Norvasc] 5 mg PO DAILY Nebivolol HCl [Bystolic] 10 mg PO DAILY Megestrol [Megace] 20 mg PO DAILY LORazepam [Ativan] 0.5 mg PO HS Prochlorperazine [Compazine] 10 mg PO TID PRN PRN Reason: Nausea Nystatin 100,000 Unit/ml Susp [Mycostatin Oral Susp] 500,000 unit PO QID ALPRAZolam [Xanax] 0.25 mg PO Q6H PRN PRN Reason: Anxiety Discharge Medication List HYDROcodone/APAP 5-325MG [[place] 5-325] 1 tab PO Q6H PRN 10/05/17 [History] Albuterol Inhaler [Ventolin Hfa Inhaler] 1 - 2 puff INHALATION RT-Q6H PRN [History] Docusate [Colace] 100 mg PO BID #60 cap 02/10/18 [Rx] ALPRAZolam [Xanax] 0.25 mg PO Q6H PRN 05/12/18 [History] LORazepam [Ativan] 0.5 mg PO HS 05/12/18 [History] Megestrol [Megace] 20 mg PO DAILY 05/12/18 [History] Nebivolol HCl [Bystolic] 10 mg PO DAILY 05/12/18 [History] Nystatin 100,000 Unit/ml Susp [Mycostatin Oral Susp] 500,000 unit PO QID [History] Prochlorperazine [Compazine] 10 mg PO TID PRN 05/12/18 [History] amLODIPine [Norvasc] 5 mg PO DAILY 05/12/18 [History] Follow up Appointment(s)/Referral(s): None,Stated [Primary Care Provider] - 1-2 days Discharge Disposition: DISCH TO HOSPICE MED FACILTY
[2018-05-14 13:11] VITALS: BMI 19.0
--- NOTE | 2018-05-14 20:55 | P.PN ---
Subjective Progress Note Date: 05/14/18 Principal diagnosis: Metastatic Cancer Patient, sister, brother, and dad in room at time of visit. We reviewed the CT scan with signs of disease progression, we reviewed ongoing issues related to his compliance and non-adherence to recommendations made throughout his diagnosis. Chidi acknowledged this and admitted to having issues with depression and anxiety he continues to attempt to treat with alcohol and drugs. He admits to not taking xeloda the past few months but once in a while. He stated he want treatment, understanding the treatment is palliative and not curative. Concern was expressed related to the response of treatment not reaching our goals without his adherence. He understands and still states he would like to try. to control the disease longer with treatment. At this point we recommend he be seen by psychiatry, and they assist in prescribing medication to help his mental health, we tentavely started him on wellbutrin in the interim. He has decided to go home with palliative care at home and increase his overalll performance and will follow up with Dr. Galan in 2 weeks to discuss new treatment options if he chooses to at that time. Objective - Vital Signs Vital signs: Vital Signs Temp 97.9 F 05/14/18 12:09 Pulse 77 05/14/18 15:58 Resp 16 05/14/18 12:09 BP 112/65 05/14/18 12:09 Pulse Ox 100 05/14/18 12:09 Intake & Output 05/13/18 05/14/18 05/14/18 18:59 06:59 18:59 Intake Total 600 Balance 600 Weight 53.5 kg Intake: Intake, IV Titration 600 Amount Sodium Chloride 0.9% 1, 600 000 ml @ 75 mls/hr IV . [id number] [facility] Rx#:[id number] Other: Voiding Method Toilet Toilet Toilet # Voids 3 # Bowel Movements 0 - Exam - Constitutional General appearance: average body habitus, cooperative, no acute distress - EENT Eyes: anicteric sclerae, EOMI ENT: hearing grossly normal, thrush - Neck Neck: no lymphadenopathy - Respiratory Respiratory: bilateral: diminished - Cardiovascular Rhythm: regular Heart sounds: normal: S1, S2 Abnormal Heart Sounds: no systolic murmur, no diastolic murmur, no rub, no S3 Gallop, no S4 Gallop, no click, no other leg Peripheral Edema: bilateral: None - Gastrointestinal General gastrointestinal: no absent bowel sounds, no decreased bowel sounds, no distended, no hepatomegaly, no hyperactive bowel sounds, normal bowel sounds, no organomegaly, no rigid, no scaphoid, soft, no splenomegaly, no tenderness, no umbilical hernia, no ventral hernia - Integumentary Integumentary: normal - Neurologic Neurologic: CNII-XII intact - Musculoskeletal Musculoskeletal: generalized weakness, strength equal bilaterally - Psychiatric Psychiatric: A&O x's 3, appropriate affect, intact judgment & insight - Constitutional General appearance: Present: average body habitus, cooperative - EENT Eyes: Present: EOMI, PERRLA ENT: Present: NA/AT - Neck Neck: Present: normal ROM - Respiratory Respiratory: bilateral: CTA - Cardiovascular Rhythm: regular Heart sounds: normal: S1, S2 - Gastrointestinal General gastrointestinal: Present: normal bowel sounds - Integumentary Integumentary: Present: pale - Neurologic Neurologic: Present: CNII-XII intact - Musculoskeletal Musculoskeletal: Present: generalized weakness, strength equal bilaterally - Psychiatric Psychiatric: Present: A&O x's 3, appropriate affect, intact judgment & insight - Labs CBC & Chem 7: 05/14/18 07:09 05/14/18 07:09 Labs: Abnormal Lab Results - Last 24 Hours (Table) 05/14/18 05/14/18 Range/Units 07:09 07:09 RBC 2.87 L (4.30-5.90) m/uL Hgb 9.7 L (13.0-17.5) gm/dL Hct 29.8 L (39.0-53.0) % MCV 104.1 H (80.0-100.0) fL Neutrophils # 8.6 H (1.3-7.7) k/uL Lymphocytes # 0.6 L (1.0-4.8) k/uL Sodium 133 L (137-145) mmol/L BUN 4 L (9-20) mg/dL Creatinine 0.41 L (0.66-1.25) mg/dL Microbiology - Last 24 Hours (Table) 05/12/18 15:17 Blood Culture - Preliminary Blood No Growth after 24 hours Assessment and Plan Plan: Assessment and Recommendations: 1. Metastatic Colon Cancer with disease progression: - Poor adherence to medical recommendations throughout treatment - Long Discussion related to goals, non-curable disease and palliative intent. - Will have him follow-up with Dr. Galan in 2 weeks to discuss if other treatment options, in the mean time he will be referred to home palliative care to assist in symptom management at home and increased overall performance status 2. Depression Anxiety: - Known tobacco and ETOH - Highly recommend psychiatry input related to long acting treatment for mental health - Wellbutrin in the interim Greater than 30 minutes spent face to face with family today counseling and coordinating care, discussion of palliative versus hospice versus goals and options Time with Patient: Greater than 30 (palliative care discussion)
[2018-05-14] MEDS: buPROPion 75 MG TAB PO SCH (21:52)
[2018-05-14] MEDS: LORazepam 0.5 MG TAB PO SCH (21:52)
[2018-05-15] MEDS: HYDROmorphone 1 MG/ML 1 ML SYRINGE IVP PRN ×3 (02:29→13:46)
[2018-05-15] MEDS: HYDROcodone/APAP 5-325MG 1 EACH TAB PO PRN ×3 (02:30→15:19)
[2018-05-15] MEDS: ALPRAZolam 0.25 MG TAB PO PRN ×2 (02:32→10:29)
[2018-05-15 05:37] VITALS: RESP 16
[2018-05-15] MEDS: DOCUSATE 100 MG CAP PO SCH (07:35)
[2018-05-15] MEDS: buPROPion 75 MG TAB PO SCH (07:35)
[2018-05-15] MEDS: MEGESTROL 400 MG/10 ML CUP PO SCH (07:35)
[2018-05-15] MEDS: NYSTATIN 100,000 UNIT/ML SUSP 500,000 UNIT/5 ML CUP PO SCH ×2 (07:37→13:45)
[2018-05-15] MEDS: NEBIVOLOL 5 MG TAB PO SCH (07:37)
[2018-05-15 07:44] LABS: Basophils % (A) 0 %; Eosinophils # (A) 0.4 k/uL (0-0.7); Eosinophils % (A) 4 %; HCT 28.5 % (39.0-53.0); HGB 9.3 gm/dL (13.0-17.5); Lymphocytes # (A) 0.9 k/uL (1.0-4.8); Lymphocytes % (A) 9 %; MCH 33.8 pg (25.0-35.0); MCHC 32.5 g/dL (31.0-37.0); MCV 103.8 fL (80.0-100.0); Macrocytosis Moderate; Mean Platelet Volume 7.4; Monocytes # (A) 0.6 k/uL (0-1.0); Monocytes % (A) 7 %; Neutrophils # (A) 7.2 k/uL (1.3-7.7); Neutrophils % (A) 78 %; Platelet Count 208 k/uL (150-450); RBC 2.75 m/uL (4.30-5.90); RDW 15.1 % (11.5-15.5); WBC 9.3 k/uL (3.8-10.6)
[2018-05-15 08:07] LABS: Anion Gap 4 mmol/L; Blood Urea Nitrogen 5 mg/dL (9-20); Calcium 8.4 mg/dL (8.4-10.2); Carbon Dioxide 23 mmol/L (22-30); Chloride 103 mmol/L (98-107); Glucose 95 mg/dL (74-99); Potassium 3.3 mmol/L (3.5-5.1); Sodium 130 mmol/L (137-145)
[2018-05-15] MEDS: IPRATROPIUM-ALBUTEROL 3 ML NEB INHALATION SCH ×3 (08:38→16:33)
[2018-05-15 12:25] VITALS: BP 131/70; PULSE 76; TEMP 98.1
[2018-05-15] MEDS: SODIUM CHLORIDE 0.9% 1,000 ML IV SCH (13:46)
[2018-05-15] MEDS ORDERED: POTASSIUM CHLORIDE ER 20 MEQ TAB.ER PO STA (15:14)
--- NOTE | 2018-05-15 15:17 | P.DS ---
Providers Date of admission: 05/12/18 17:34 Attending physician: Yolanda Krueger Consults: 05/13/18 10:32 Consult Physician Routine Consulting Provider: Guillermo Sage Consult Reason/Comments: oncology care Do you want consulting provider notified?: Already Contacted Primary care physician: Stated None Hospital Course: 57-year-old very pleasant gentleman although looks older than stated age came in with compensative generalized weakness tiredness nausea vomiting diarrhea and a patient doesn't have any diarrhea today had multiple episodes of diarrhea and less today for about last 3 days patient appears to be dehydrated. Patient is comparing of nonspecific abdominal pain while mild to moderate as well as to her shortness of breath. CAT scan of the abdomen and chest were often there is no pulmonary embolism but there is worsening metastatic colon cancer disease. Patient the abdominal CAT scan did show inflammation and colitis surrounding the colonic tumor. Patient received chemo and radiation therapy in spite of which patient continued to have progressive disease. Patient doesn't have any brain metastases as per the patient. Patient is well with oncology patient has poor pedal intake as well leading to dehydration and intravascular volume depletion. I discussed CODE STATUS with the patient and the patient is agreeable on DO NOT RESUSCITATE at this time 05/14/2018 I had extensive discussion with the patient and oncology nurse practitioner today. Patient's repeat CAT scans did show worsening metastatic disease and primary cancer which is colon cancer patient is comparing of abdominal pain and generalized tiredness is dehydration although improved they're not any other options left except for comfort care and hospice same thing was discussed with the patient hospice was consulted if possible will discharge patient to Hospital services today. 05/15/2018 Patient decided on palliative care not hospice. Patient's sodium remains at 130 and stable at this level part of his hyponatremia is probably related to SIADH. If oncology can set up home fluids on Thursday patient can be discharged today are as patient may have to stay here until Thursday. discharge as per oncology. Patient feels better than admission . PHYSICAL EXAMINATION: GENERAL: Patient appears bit tired and lethargic. Thin built HEENT: Pupils are round and equally reacting to light. EOMI. No scleral icterus. No conjunctival pallor. Normocephalic, atraumatic. No pharyngeal erythema. No thyromegaly. CARDIOVASCULAR: S1 and S2 present. No murmurs, rubs, or gallops. PULMONARY: Chest is clear to auscultation, no wheezing or crackles. ABDOMEN: Soft, nontender, nondistended, normoactive bowel sounds. No palpable organomegaly. MUSCULOSKELETAL: No joint swelling or deformity. EXTREMITIES: No cyanosis, clubbing, or pedal edema. NEUROLOGICAL: Gross neurological examination did not reveal any focal deficits. SKIN: No rashes. Assessment and Plan Plan: -Generalized weakness and tiredness: Secondary to advancing cancer and cancer cachexia along with dehydration -Hyponatremia: Severe hypovolemic hyponatremia: Continue with IV fluids -Diarrhea: Improved -colon Cancer metastatic disease pain management supportive care. Patient will be discharged with palliative care to home -Hypertension will not require Norvasc upon discharge -Cancer cachexia protein calorie malnutrition -COPD significant exacerbation -Hyperlipidemia CODE STATUS DO NOT RESUSCITATE as mentioned above Patient Condition at Discharge: Fair Plan - Discharge Summary Discharge Rx Participant: No New Discharge Prescriptions: Discontinued Spironolactone [Aldactone] 25 mg PO DAILY #30 tab Potassium Chloride ER [K-Dur 20] 20 meq PO DAILY No Action HYDROcodone/APAP 5-325MG [[place] 5-325] 1 tab PO Q6H PRN PRN Reason: Pain Albuterol Inhaler [Ventolin Hfa Inhaler] 1 - 2 puff INHALATION RT-Q6H PRN PRN Reason: Shortness Of Breath Docusate [Colace] 100 mg PO BID #60 cap amLODIPine [Norvasc] 5 mg PO DAILY Nebivolol HCl [Bystolic] 10 mg PO DAILY Megestrol [Megace] 20 mg PO DAILY LORazepam [Ativan] 0.5 mg PO HS Prochlorperazine [Compazine] 10 mg PO TID PRN PRN Reason: Nausea Nystatin 100,000 Unit/ml Susp [Mycostatin Oral Susp] 500,000 unit PO QID ALPRAZolam [Xanax] 0.25 mg PO Q6H PRN PRN Reason: Anxiety Discharge Medication List HYDROcodone/APAP 5-325MG [[place] 5-325] 1 tab PO Q6H PRN 10/05/17 [History] Albuterol Inhaler [Ventolin Hfa Inhaler] 1 - 2 puff INHALATION RT-Q6H PRN [History] Docusate [Colace] 100 mg PO BID #60 cap 02/10/18 [Rx] ALPRAZolam [Xanax] 0.25 mg PO Q6H PRN 05/12/18 [History] LORazepam [Ativan] 0.5 mg PO HS 05/12/18 [History] Megestrol [Megace] 20 mg PO DAILY 05/12/18 [History] Nebivolol HCl [Bystolic] 10 mg PO DAILY 05/12/18 [History] Nystatin 100,000 Unit/ml Susp [Mycostatin Oral Susp] 500,000 unit PO QID [History] Prochlorperazine [Compazine] 10 mg PO TID PRN 05/12/18 [History] amLODIPine [Norvasc] 5 mg PO DAILY 05/12/18 [History] Follow up Appointment(s)/Referral(s): [facility], [NON-STAFF] - None,Stated [Primary Care Provider] - 1-2 days Gee Cancino MD [STAFF PHYSICIAN] - 2 Weeks Discharge Disposition: DISCH TO [facility]
== END 2018-05-15 16:49 | disposition home health service (06) | DRG 375 ==
LOC: EC 14:11 → 3NMEDONC 17:34
PROVIDERS: ADMIT Internal Medicine; ATTEND Internal Medicine
DX: C20 Malignant neoplasm of rectum (principal); C78.7 Secondary malignant neoplasm of liver and intrahepatic bile duct; E22.2 Syndrome of inappropriate secretion of antidiuretic hormone; B37.0 Candidal stomatitis; E46 Unspecified protein-calorie malnutrition; C78.02 Secondary malignant neoplasm of left lung; C78.01 Secondary malignant neoplasm of right lung; K92.81 Gastrointestinal mucositis (ulcerative); R64 Cachexia; Z68.1 Body mass index [BMI] 19.9 or less, adult; E78.5 Hyperlipidemia, unspecified; E83.42 Hypomagnesemia; E86.0 Dehydration; E87.6 Hypokalemia; F10.10 Alcohol abuse, uncomplicated; F17.210 Nicotine dependence, cigarettes, uncomplicated; F32.9 Major depressive disorder, single episode, unspecified; F41.9 Anxiety disorder, unspecified; G89.3 Neoplasm related pain (acute) (chronic); I10 Essential (primary) hypertension; J44.9 Chronic obstructive pulmonary disease, unspecified; T45.1X5A Adverse effect of antineoplastic and immunosuppressive drugs, initial encounter; T66.XXXA Radiation sickness, unspecified, initial encounter; K52.9 Noninfective gastroenteritis and colitis, unspecified; Z51.5 Encounter for palliative care; Z66 Do not resuscitate; Z79.899 Other long term (current) drug therapy; Z80.3 Family history of malignant neoplasm of breast; Z82.49 Family history of ischemic heart disease and other diseases of the circulatory system; Z82.5 Family history of asthma and other chronic lower respiratory diseases; Z87.01 Personal history of pneumonia (recurrent); Z92.21 Personal history of antineoplastic chemotherapy; Z92.3 Personal history of irradiation; R56.9 Unspecified convulsions; B37.9 Candidiasis, unspecified; M19.90 Unspecified osteoarthritis, unspecified site
CPT/HCPCS: 36415; 71046; 71260; 74177; 80048; 80053; 82550; 82553; 83605; 83735; 83880; 84484; 85025; 85610; 85730; 87040; 87502; 93005; 94640; 94760; 96361; 96365; 96375; 99285

== ENCOUNTER 2018-06-12 21:38 | Emergency (ER) | payer OTHER ==
[2018-06-12 21:43] VITALS: RESP 20
[2018-06-12] MEDS ORDERED: SODIUM CHLORIDE 0.9% 1,000 ML IV STA (22:11)
[2018-06-12] MEDS ORDERED: KETOROLAC 30 MG/ML 1 ML VIAL IVP STA (22:12)
[2018-06-12] MEDS ORDERED: LORazepam 2 MG/ML INJ IV STA (22:12)
[2018-06-12] MEDS ORDERED: ONDANSETRON 4 MG/2 ML VIAL IVP STA (23:02)
[2018-06-12 23:37] LABS: ALT 32 U/L (21-72); AST 87 U/L (17-59); Albumin 2.9 g/dL (3.5-5.0); Alkaline Phosphatase 776 U/L (38-126); Anion Gap 14 mmol/L; Blood Urea Nitrogen 14 mg/dL (9-20); Calcium 8.4 mg/dL (8.4-10.2); Carbon Dioxide 24 mmol/L (22-30); Chloride 99 mmol/L (98-107); Glucose 120 mg/dL (74-99); Magnesium 1.5 mg/dL (1.6-2.3); Potassium 3.3 mmol/L (3.5-5.1); Sodium 137 mmol/L (137-145); Total Bilirubin 0.4 mg/dL (0.2-1.3); Total Protein 5.9 g/dL (6.3-8.2)
[2018-06-12 23:41] LABS: Anisocytosis Slight; Basophils % (A) 0 %; Eosinophils % (A) 0 %; HCT 32.7 % (39.0-53.0); HGB 10.7 gm/dL (13.0-17.5); Lymphocytes # (A) 0.6 k/uL (1.0-4.8); Lymphocytes % (A) 4 %; MCH 32.1 pg (25.0-35.0); MCHC 32.6 g/dL (31.0-37.0); Macrocytosis Slight; Mean Platelet Volume 6.6; Monocytes # (A) 0.6 k/uL (0-1.0); Monocytes % (A) 4 %; Neutrophils # (A) 12.4 k/uL (1.3-7.7); Neutrophils % (A) 90 %; Platelet Count 353 k/uL (150-450); RBC 3.32 m/uL (4.30-5.90); RDW 16.2 % (11.5-15.5); WBC 13.7 k/uL (3.8-10.6)
--- NOTE | 2018-06-12 23:44 | ED ---
Fall HPI - General Chief Complaint: Fall Stated Complaint: Fall Time Seen by Provider: 06/12/18 21:54 Source: patient Mode of arrival: ambulatory - History of Present Illness Initial Comments: 57-year-old male patient with past medical history significant for chronic alcohol abuse and cancer presents to the emergency department today for evaluation after expressing a fall sometime between this afternoon and yesterday. Initially patient was tolerating fell a few hours ago however he now reports that the falls last evening. States he is in the bathroom lost his balance and fell backward striking his right ribs and head on the toilet. Patient is unsure if he lost consciousness. States he is having significant pain to the right posterior ribs and difficulty breathing related to this. Denies any cough or hemoptysis. States he also has a severe headache. He denies any blurred or double vision. States he feels dizzy. He denies any numbness or tingling to his extremities. Denies any neck pain. Denies any hematuria, dysuria, urinary frequency, urinary urgency. States he did drink alcohol earlier in the day but is unsure when his last drink was. Patient denies any recent rash, fever, chills, abdominal pain, nausea, vomiting, diarrhea, constipation, numbness, tingling, dizziness, weakness, or any other complaints. - Related Data Home Medications Medication Instructions Recorded Confirmed HYDROcodone/APAP 5-325MG [[place] 1 tab PO Q6H PRN 10/05/17 06/12/18 5-325] Albuterol Inhaler [Ventolin Hfa 1 - 2 puff INHALATION RT-Q6H PRN 12/24/17 Inhaler] ALPRAZolam [Xanax] 0.25 mg PO Q6H PRN 05/12/18 06/12/18 LORazepam [Ativan] 0.5 mg PO HS 05/12/18 06/12/18 Megestrol [Megace] 20 mg PO DAILY 05/12/18 06/12/18 Nebivolol HCl [Bystolic] 10 mg PO DAILY 05/12/18 06/12/18 Nystatin 100,000 Unit/ml Susp 500,000 unit PO QID 05/12/18 06/12/18 [Mycostatin Oral Susp] Prochlorperazine [Compazine] 10 mg PO TID PRN 05/12/18 06/12/18 Previous Rx's Medication Instructions Recorded Docusate [Colace] 100 mg PO BID #60 cap 02/10/18 Acetaminophen-Codeine 300-30mg 1 tab PO Q6H PRN #12 tablet 06/13/18 [Tylenol #3] Ibuprofen [Motrin] 600 mg PO Q8HR PRN #30 tab 06/13/18 Lidocaine 5% Patch [Lidoderm] 1 patch TOPICAL DAILY #5 patch 06/13/18 Allergies Allergy/AdvReac Type Severity Reaction Status Date / Time No Known Allergies Allergy Verified 06/12/18 22:25 Review of Systems ROS Statement: Those systems with pertinent positive or pertinent negative responses have been documented in the HPI. ROS Other: All systems not noted in ROS Statement are negative. Past Medical History Past Medical History: Cancer, COPD, GI Bleed, Hyperlipidemia, Hypertension, Pneumonia Additional Past Medical History / Comment(s): Arthritis. colon cancer "mets to liver,lung"dx 04/19 received 12 treatments of chemo/9 rounds radiation now on oral chemo pill. has port rt upper chest. pt stated has had a seizure at age 32 "they think it was because he was'nt eating good and was dehydrated " pt had another seizure 2017-pt thinks it may have been related to medication". History of Any Multi-Drug Resistant Organisms: Other MDRO Past Surgical History: Tonsillectomy Additional Past Surgical History / Comment(s): Colonoscopy 2018, port placement rt upper chest Past Anesthesia/Blood Transfusion Reactions: Motion Sickness Additional Past Anesthesia/Blood Transfusion Reaction / Comment(s): never had any blood transfusions Past Psychological History: No Psychological Hx Reported Smoking Status: Current some day smoker Past Alcohol Use History: Abuse, Daily Past Drug Use History: Unable to Obtain - Past Family History Sister(s) Family Medical History: Cancer Additional Family Medical History / Comment(s): Sister Breast Ca Mother Family Medical History: Asthma, COPD Father Family Medical History: Hypertension General Exam Limitations: no limitations General appearance: alert, in no apparent distress, other (This is a well- developed, thin appearing adult male patient in mild distress related to pain. Vital signs upon presentation are temperature 98.1F, pulse 134, respirations 20 , blood pressure 160/112, pulse ox 100% on room air.) Eye exam: Present: normal appearance, PERRL, EOMI. Absent: scleral icterus, conjunctival injection, nystagmus, periorbital swelling ENT exam: Present: normal exam, normal oropharynx, mucous membranes moist Neck exam: Present: normal inspection, full ROM, other (Nontender, no step-off, no deformity to firm midline palpation of the posterior cervical spine. Full range of motion without pain or limitation.). Absent: tenderness, meningismus, lymphadenopathy Respiratory exam: Present: normal lung sounds bilaterally. Absent: respiratory distress, wheezes, rales, rhonchi, stridor Cardiovascular Exam: Present: normal rhythm, tachycardia, normal heart sounds. Absent: systolic murmur, diastolic murmur, rubs, gallop, clicks GI/Abdominal exam: Present: soft, normal bowel sounds. Absent: distended, tenderness, guarding, rebound, rigid Back exam: Present: tenderness (Tenderness over the right posterior ribs), other (Tenderness over the right posterior ribs #9 and 10, there is area of ecchymosis over this area as well). Absent: normal inspection, CVA tenderness ( R), CVA tenderness (L), vertebral tenderness (No midline vertebral tenderness, step-off, or deformity of the thoracic and lumbar spines.) Neurological exam: Present: alert, oriented X3, CN II-XII intact Psychiatric exam: Present: normal affect, normal mood Skin exam: Present: warm, dry, intact, normal color. Absent: rash Course Vital Signs 06/12/18 06/13/18 06/13/18 21:39 00:46 01:23 Temperature 98.1 F 98.5 F Pulse Rate 134 H 121 H 119 H Respiratory 20 20 20 Rate Blood Pressure 160/112 140/102 154/99 O2 Sat by Pulse 100 97 98 Oximetry 06/13/18 02:45 Temperature 97.9 F Pulse Rate 99 Respiratory 20 Rate Blood Pressure 148/95 O2 Sat by Pulse 95 Oximetry Medical Decision Making - Medical Decision Making 57-year-old male patient with past medical history significant for colon cancer with metastases to liver and lung, history of chronic alcohol abuse presents to the emergency department today for evaluation of right rib pain and headache after experiencing a fall. Physical examination did reveal right posterior rib tenderness over ribs 9 and 10. There is no cervical, thoracic, or lumbar spinal tenderness. Patient is neurologically intact, was shaky and nauseous. 2. There are some element of alcohol withdrawal involved here. Labs reviewed and did reveal low potassium at 3.3. Other chronic changes as labs were noted. Alcohol levels 146. Blood sugars 135. CT brain and C-spine was obtained and showed no acute abnormalities. X-ray of the right ribs did reveal a ninth rib fracture. Patient was given incentive spirometry education. We discharged home with pain medication. He is instructed to follow-up with his primary care physician for recheck in 1-2 days. He is instructed to avoid use of alcohol while taking pain medication. Return parameters discussed in detail. He verbalizes understanding and agrees with this plan. - Lab Data Result diagrams: 06/12/18 23:00 06/12/18 23:00 Lab Results 06/12/18 06/12/18 06/12/18 Range/Units 23:00 23:00 23:00 WBC 13.7 H (3.8-10.6) k/uL RBC 3.32 L (4.30-5.90) m/uL Hgb 10.7 L (13.0-17.5) gm/dL Hct 32.7 L (39.0-53.0) % MCV 98.7 D (80.0-100.0) fL MCH 32.1 (25.0-35.0) pg MCHC 32.6 (31.0-37.0) g/dL RDW 16.2 H (11.5-15.5) % Plt Count 353 (150-450) k/uL Neutrophils % 90 % Lymphocytes % 4 % Monocytes % 4 % Eosinophils % 0 % Basophils % 0 % Neutrophils # 12.4 H (1.3-7.7) k/uL Lymphocytes # 0.6 L (1.0-4.8) k/uL Monocytes # 0.6 (0-1.0) k/uL Eosinophils # 0.0 (0-0.7) k/uL Basophils # 0.0 (0-0.2) k/uL Anisocytosis Slight Macrocytosis Slight PT 11.2 (9.0-12.0) sec INR 1.1 (<1.2) Sodium 137 (137-145) mmol/L Potassium 3.3 L (3.5-5.1) mmol/L Chloride 99 (98-107) mmol/L Carbon Dioxide 24 (22-30) mmol/L Anion Gap 14 mmol/L BUN 14 (9-20) mg/dL Creatinine 0.60 L (0.66-1.25) mg/dL Est GFR (CKD-EPI)AfAm >90 (>60 ml/min/1.73 sqM) Est GFR (CKD-EPI)NonAf >90 (>60 ml/min/1.73 sqM) Glucose 120 H (74-99) mg/dL POC Glucose (mg/dL) (75-99) mg/dL POC Glu [employer] ID Calcium 8.4 (8.4-10.2) mg/dL Phosphorus 3.0 (2.5-4.5) mg/dL Magnesium 1.5 L (1.6-2.3) mg/dL Total Bilirubin 0.4 (0.2-1.3) mg/dL AST 87 H (17-59) U/L ALT 32 (21-72) U/L Alkaline Phosphatase 776 H (38-126) U/L Total Protein 5.9 L (6.3-8.2) g/dL Albumin 2.9 L (3.5-5.0) g/dL Serum Alcohol 146 mg/dL 06/12/18 Range/Units 23:19 WBC (3.8-10.6) k/uL RBC (4.30-5.90) m/uL Hgb (13.0-17.5) gm/dL Hct (39.0-53.0) % MCV (80.0-100.0) fL MCH (25.0-35.0) pg MCHC (31.0-37.0) g/dL RDW (11.5-15.5) % Plt Count (150-450) k/uL Neutrophils % % Lymphocytes % % Monocytes % % Eosinophils % % Basophils % % Neutrophils # (1.3-7.7) k/uL Lymphocytes # (1.0-4.8) k/uL Monocytes # (0-1.0) k/uL Eosinophils # (0-0.7) k/uL Basophils # (0-0.2) k/uL Anisocytosis Macrocytosis PT (9.0-12.0) sec INR (<1.2) Sodium (137-145) mmol/L Potassium (3.5-5.1) mmol/L Chloride (98-107) mmol/L Carbon Dioxide (22-30) mmol/L Anion Gap mmol/L BUN (9-20) mg/dL Creatinine (0.66-1.25) mg/dL Est GFR (CKD-EPI)AfAm (>60 ml/min/1.73 sqM) Est GFR (CKD-EPI)NonAf (>60 ml/min/1.73 sqM) Glucose (74-99) mg/dL POC Glucose (mg/dL) 135 H (75-99) mg/dL POC Glu [employer] ID Ana M Bee Calcium (8.4-10.2) mg/dL Phosphorus (2.5-4.5) mg/dL Magnesium (1.6-2.3) mg/dL Total Bilirubin (0.2-1.3) mg/dL AST (17-59) U/L ALT (21-72) U/L Alkaline Phosphatase (38-126) U/L Total Protein (6.3-8.2) g/dL Albumin (3.5-5.0) g/dL Serum Alcohol mg/dL - Radiology Data Radiology results: report reviewed, image reviewed X-ray of the right ribs and chest was obtained. Report was reviewed in its entirety. Impression by Dr. Nath shows trace right apical pneumothorax. No acute fracture. Multiple nodules are identified within the lungs. I did review the image myself there did appear to be a mildly displaced fracture of the right ninth rib. CT brain and C-spine was obtained without IV contrast. Report was reviewed in its entirety. Impression by Dr. Nath shows no acute hemorrhage, hydrocephalus, or mass effect. CT cervical spine showed no acute fracture, minimal right apical pneumothorax. Multiple nodules in the bilateral upper lobes, correlate with chest CT. Disposition Clinical Impression: Right rib fracture, Head injury, Alcohol intoxication, Hypokalemia Disposition: HOME SELF-CARE Condition: Good Instructions (If sedation given, give patient instructions): Rib Fracture (ED) , Head Injury (ED), Alcohol Intoxication (ED) Additional Instructions: Use incentive spirometer 10 times per hour while awake. Take medication as directed for pain control. Perform coughing and deep breathing exercises to prevent pneumonia. Follow-up with your primary care physician for recheck in 1- 2 days. Return to the emergency department immediately for any new, worsening, or concerning symptoms. Prescriptions: Acetaminophen-Codeine 300-30mg [Tylenol #3] 1 tab PO Q6H PRN #12 tablet PRN Reason: Pain Ibuprofen [Motrin] 600 mg PO Q8HR PRN #30 tab PRN Reason: Pain Lidocaine 5% Patch [Lidoderm] 1 patch TOPICAL DAILY #5 patch Is patient prescribed a controlled substance at d/c from ED?: Yes When asked, does pt state using other controlled substances?: No If prescribed controlled substance>3 days was MAPS reviewed?: Prescribed <3 Days If opioid is for acute pain is fill amount 7 days or less?: Yes If Rx opioid, was Start Talking consent form obtained?: Yes [facility]errals[facility] [[facility] - 1-2 days Time of Disposition: 01:58
[2018-06-12 23:45] LABS: MCV 98.7 fL (80.0-100.0)
[2018-06-12 23:50] LABS: Alcohol 146 mg/dL; INR 1.1 (<1.2); Prothrombin Time 11.2 sec (9.0-12.0)
[2018-06-13 00:27] LABS: Glucose,Whole Blood 135 mg/dL (75-99)
[2018-06-13] MEDS ORDERED: POTASSIUM CHLORIDE ER 20 MEQ TAB.ER PO STA (00:33)
[2018-06-13] MEDS ORDERED: LORazepam 2 MG/ML INJ IV STA (00:51)
[2018-06-13] MEDS ORDERED: MORPHINE SULFATE 4 MG/ML SYRINGE IVP STA (00:51)
--- NOTE | 2018-06-13 00:53 | CT ---
EXAM: CT Head Without Intravenous Contrast CLINICAL HISTORY: ITS.REASON CT Reason: Pain TECHNIQUE: Axial computed tomography images of the head/brain without intravenous contrast. CTDI is 45 mGy and DLP is 1008 mGy-cm. This CT exam was performed using one or more of the following dose reduction techniques: automated exposure control, adjustment of the mA and/or kV according to patient size, and/or use of iterative reconstruction technique. COMPARISON: No relevant prior studies available. FINDINGS: Brain: No hemorrhage, large hypodensity, or mass effect. Ventricles: No hydrocephalus. Mild cerebral volume loss. Bones/joints: Unremarkable. Soft tissues: Unremarkable. Sinuses: Small mucosal retention cyst in the right maxillary sinus. Mastoid air cells: Clear. IMPRESSION: No acute hemorrhage, hydrocephalus, or mass effect. EXAM: CT Cervical Spine Without Intravenous Contrast CLINICAL HISTORY: ITS.REASON CT Reason: Pain TECHNIQUE: Axial computed tomography images of the cervical spine without intravenous contrast. CTDI is 8 mGy and DLP is 255 mGy-cm. This CT exam was performed using one or more of the following dose reduction techniques: automated exposure control, adjustment of the mA and/or kV according to patient size, and/or use of iterative reconstruction technique. COMPARISON: No relevant prior studies available. FINDINGS: Vertebrae: No acute fracture. Discs/spinal canal/neural foramina: No acute findings. No spinal canal stenosis. Soft tissues: Trace right apical pneumothorax. 4 mm right upper lobe, 5 mm left upper lobe, 8 mm left upper lobe, and 1.3 cm partially calcified left upper lobe lesions. IMPRESSION: 1. No acute fracture. 2. Minimal Right apical pneumothorax. 3. Multiple nodules in the bilateral upper lobes, correlate with chest CT. Critical Value Communications 06/13/18 01:07 Verify Receipt Verified receipt with Dr. Aishwarya Bañuelos on 06/13 01:07 (-05:00)
--- NOTE | 2018-06-13 00:54 | XR ---
EXAM: XR Right Ribs, 2 Views CLINICAL HISTORY: ITS.REASON XR Reason: Pain TECHNIQUE: Frontal and oblique views of the right ribs. COMPARISON: No relevant prior studies available. IMPRESSION: Trace right apical pneumothorax. No acute fracture. Multiple nodules are identified within the lungs.
[2018-06-13] MEDS ORDERED: LIDOCAINE 5% PATCH TOPICAL STA (01:55)
[2018-06-13] MEDS ORDERED: ACET/COD 300 MG/30 MG STARTER PACK 6 TAB BTL PO STA (01:55)
[2018-06-13] MEDS ORDERED: IBUPROFEN 600 MG STARTER PACK 4 TAB BTL PO STA (01:55)
[2018-06-13 03:04] VITALS: BP 148/95; PULSE 99; TEMP 97.9
== END 2018-06-13 03:18 | disposition home or self-care (01) ==
LOC: EC 21:38
DX: S22.31XA Fracture of one rib, right side, initial encounter for closed fracture (principal); S09.90XA Unspecified injury of head, initial encounter; E87.6 Hypokalemia; F10.129 Alcohol abuse with intoxication, unspecified; R73.9 Hyperglycemia, unspecified; J44.9 Chronic obstructive pulmonary disease, unspecified; I10 Essential (primary) hypertension; F17.200 Nicotine dependence, unspecified, uncomplicated; Z85.038 Personal history of other malignant neoplasm of large intestine; Z85.05 Personal history of malignant neoplasm of liver; Z92.21 Personal history of antineoplastic chemotherapy; Z85.118 Personal history of other malignant neoplasm of bronchus and lung; Z79.899 Other long term (current) drug therapy; Y90.6 Blood alcohol level of 120-199 mg/100 ml; W19.XXXA Unspecified fall, initial encounter; Y92.002 Bathroom of unspecified non-institutional (private) residence as the place of occurrence of the external cause
CPT/HCPCS: 36415; 80053; 83735; 84100; 85025; 85610; 71101; 72125; 70450; 99284; 96374; 96375 ×4; 96376; 96361 ×2; G0480; J2060 ×2; J2270; J2405; J1642; J1885; 80320